=== PATIENT | female | born 1965 | race Caucasian/White ===

== ENCOUNTER 2022-01-13 13:41 | Emergency (ER) | payer MEDICAID, SELFPAY ==
[2022-01-13 13:50] VITALS: BP 116/70; PULSE 91; RESP 16; TEMP 36.5; O2SAT 98; BMI 28.7
[2022-01-13 15:49] LABS: Add Urine Microscopic? NO; Charge for UA Resulting for Rev
--- NOTE | 2022-01-13 15:50 | W.ED.NAVMDI ---
HPI - Nausea/Vomiting/Diarrhea General: Chief complaint: Nausea/Vomiting/Diarrhea Stated complaint: N/V/D Time Seen by Provider: 01/13/22 15:18 History of Present Illness: Patient states he had vomiting diarrhea this morning. Said she been around 7 stomach flu that had a week ago. Patient says she feels pretty good right now. Does feel nauseous no more vomiting. Associated nausea: Yes Associated symtoms: Reports nausea; Denies chest pain or headache(s) Review of Systems Const: Denies: fever(s), chills or body aches Eyes: Denies: eye discomfort ENMT: Denies: throat pain Card: Denies: chest pain Resp: Denies: dyspnea GI: Reports: nausea, vomiting and diarrhea; Denies: abdominal pain Skin/Breast: Denies: rash Neuro: Denies: headache(s) Psych: Denies: depression or suicidal ideation Physical Exam Const: COMMON NORMALS: no acute distress, patient oriented x3 and alert HENMT: COMMON NORMALS: normocephalic and external ears normal HEAD & SCALP: normocephalic EXTERNAL EAR: Yes external ears normal Eye: COMMON NORMALS: EOMs intact bilaterally Neck/C-Spine: COMMON NORMALS: no JVD Resp: COMMON NORMALS: normal respiratory effort and No use of accessory muscles Cardio: COMMON NORMALS: no JVD GI: INSPECTION: Yes normal to inspection Extremity: COMMON NORMALS: normal to inspection and full ROM Neuro: COMMON NORMALS: patient oriented x3 SENSORIUM/ORIENTATION: Yes alert Psych: COMMON NORMALS: mental status grossly normal Skin: COMMON NORMALS: no rashes or lesions noted GENERAL SKIN EXAM: no rashes or lesions noted Course Vital Signs: Vital signs: Vital Signs Temperature 97.7 F 01/13/22 13:50 Pulse Rate 91 01/13/22 13:50 Respiratory Rate 16 01/13/22 13:50 Blood Pressure 116/70 01/13/22 13:50 Pulse Oximetry 98 01/13/22 13:50 MDM - Nausea/Vomiting/Diarrhea Medical Decision Making Patient presents with gastroenteritis symptoms. Laboratory studies were negative. Patient discharged home on appropriate medication. Lab Data : 01/13/22 15:48 01/13/22 15:48 Laboratory Results WBC 7.6 10^3/uL (4.0-10.0) 01/13/22 15:48 RBC 4.69 10^6/uL (4.1-5.3) 01/13/22 15:48 Hgb 14.5 g/dL (11.5-15.3) 01/13/22 15:48 Hct 43.2 % (37.0-47.0) 01/13/22 15:48 MCV 92.1 fl (81-99) 01/13/22 15:48 MCH 30.9 pg (28.0-34.0) 01/13/22 15:48 MCHC 33.6 g/dL (30.0-36.0) 01/13/22 15:48 RDW 13.0 % (12.1-15.1) 01/13/22 15:48 Plt Count 158 10^3/cmm (130-400) 01/13/22 15:48 MPV 10.6 fL (7.4-10.4) H 01/13/22 15:48 Neut % (Auto) 91.9 % 01/13/22 15:48 Lymph % (Auto) 5.4 % 01/13/22 15:48 [place] % (Auto) 2.0 % 01/13/22 15:48 Eos % (Auto) 0.1 % 01/13/22 15:48 Baso % (Auto) 0.1 % 01/13/22 15:48 Neut # (Auto) 6.95 10^3/uL (1.8-7.7) 01/13/22 15:48 Lymph # (Auto) 0.4 10^3/uL (0.8-4.8) L 01/13/22 15:48 [place] # (Auto) 0.2 10^3/uL (0.2-0.9) 01/13/22 15:48 Eos # (Auto) 0.0 10^3/uL (0.0-0.8) 01/13/22 15:48 Baso # (Auto) 0.0 10^3/uL (0.0-0.1) 01/13/22 15:48 Nucleated RBC % (auto) 0 % 01/13/22 15:48 Nucleated RBCs # 0.0 /100WBC 01/13/22 15:48 Sodium 140 mmol/L (136-145) 01/13/22 15:48 Potassium 4.2 mmol/L (3.5-5.1) 01/13/22 15:48 Chloride 102 mmol/L (98-107) 01/13/22 15:48 Carbon Dioxide 25 mmol/L (22-29) 01/13/22 15:48 Anion Gap 17.2 (5-19) 01/13/22 15:48 BUN 15 mg/dL (6-20) 01/13/22 15:48 Creatinine 0.5 mg/dL (0.5-0.9) 01/13/22 15:48 GFR Calculation 128.6 mL/min (90-130) 01/13/22 15:48 Glucose 105 mg/dL (65-115) 01/13/22 15:48 Calculated Osmolality 291 mOsm/kg (285-295) 01/13/22 15:48 Calcium 9.9 mg/dL (8.5-10.5) 01/13/22 15:48 Total Bilirubin 0.6 mg/dL (0.15-1.2) 01/13/22 15:48 AST 23 U/L (0-32) 01/13/22 15:48 ALT 14 U/L (0-33) 01/13/22 15:48 Alkaline Phosphatase 100 IU/L (35-105) 01/13/22 15:48 Total Protein 8.5 g/dL (6.6-8.7) 01/13/22 15:48 Albumin 5.0 g/dL (3.5-5.2) 01/13/22 15:48 Globulin 3.5 g/dL (1.3-4.6) 01/13/22 15:48 Lipase 17 U/L (13-60) 01/13/22 15:48 Urine Color Yellow (Yellow) 01/13/22 15:28 Urine Appearance Clear (CLEAR) 01/13/22 15:28 Urine pH 6 (5-7) 01/13/22 15:28 Ur Specific [place] 1.020 (1.005-1.030) 01/13/22 15:28 Urine Protein Neg (Negative) 01/13/22 15:28 Urine Glucose (UA) Norm (Normal) 01/13/22 15:28 Urine Ketones Negative (Negative) 01/13/22 15:28 Urine Blood Neg (Negative) 01/13/22 15:28 Urine Nitrate Negative (Negative) 01/13/22 15:28 Urine Bilirubin Neg (Negative) 01/13/22 15:28 Urine Urobilinogen Norm mg/dL (Negative) 01/13/22 15:28 Ur Leukocyte Esterase Negative (Negative) 01/13/22 15:28 Discharge Plan Discharge Patient Disposition: Home Clinical Impression: Gastroenteritis Condition: Stable Prescriptions: New Zofran 4 mg tablet 4 mg PO Q8H 3 Days Qty: 9 0RF Discharge Orders: Discharge ED (Routine); Ordered 01/13/22 Ordered By: Franki Armenta Discharge Diet: Advance as tolerated Discharge Activity: Resume usual activity Patient Instructions: Gastroenteritis (ED) Activity Restrictions/Additional Instructions: Follow-up with medical provider as directed. Take medications as prescribed. Return to the ER or your medical provider if condition worsens. Please read and understand discharge instructions. If any questions ask please. Advance diet slowly. Coding Level of Care Code ED Sustainable Design Coordinator for Cristian Fwjudit Exam Comprehensive
[2022-01-13 15:54] LABS: Bilirubin Urine Neg (Negative); Blood Urine Neg (Negative); Glucose Urine UA Norm (Normal); Ketones Urine Negative (Negative); Leukocyte Esterase Urine Negative (Negative); Nitrate Urine Negative (Negative); Protein Urine Neg (Negative); Urine Appearance Clear (CLEAR); Urine Color Yellow (Yellow); Urobilinogen Urine Norm (Negative); pH Urine 6 (5-7)
[2022-01-13] MEDS: diphenoxylate/atropine Tablet 1 TAB PO (15:56)
[2022-01-13] MEDS: ondansetron 2 mg/ML SDV 2 mL 4 MG IVP (15:57)
--- NOTE | 2022-01-13 15:58 | PC.NURSE ---
2ml of Zofran administered IVP by VERONICA Leiva
[2022-01-13 16:03] LABS: Basophils % 0.1 %; Eosinophils % 0.1 %; Hematocrit 43.2 % (37.0-47.0); Hemoglobin 14.5 g/dL (11.5-15.3); Lymphocytes # 0.4 10^3/uL (0.8-4.8); Lymphocytes % 5.4 %; Mean Corpuscular HGB Conc 33.6 g/dL (30.0-36.0); Mean Corpuscular Hemoglobin 30.9 pg (28.0-34.0); Mean Corpuscular Volume 92.1 fl (81-99); Mean Platelet Volume 10.6 fL (7.4-10.4); Monocytes # 0.2 10^3/uL (0.2-0.9); Neutrophils # 6.95 10^3/uL (1.8-7.7); Neutrophils % 91.9 %; Nucleated Red Blood Cells % 0 %; Platelet Count 158 10^3/cmm (130-400); Red Blood Count 4.69 10^6/uL (4.1-5.3); White Blood Count 7.6 10^3/uL (4.0-10.0)
[2022-01-13 16:35] LABS: Alanine Aminotransferase 14 U/L (0-33); Alkaline Phosphatase 100 IU/L (35-105); Aspartate Amino Transferase 23 U/L (0-32); Blood Urea Nitrogen 15 mg/dL (6-20); Calcium 9.9 mg/dL (8.5-10.5); Carbon Dioxide 25 mmol/L (22-29); Chloride 102 mmol/L (98-107); Globulin 3.5 g/dL (1.3-4.6); Glomerular Filtration Rate 128.6 mL/min (90-130); Glucose 105 mg/dL (65-115); Lipase 17 U/L (13-60); Osmolality Calculated 291 mOsm/kg (285-295); Sodium 140 mmol/L (136-145); Total Bilirubin 0.6 mg/dL (0.15-1.2); Total Protein 8.5 g/dL (6.6-8.7)
[2022-01-13 16:51] LABS: Anion Gap 17.2 (5-19); Potassium 4.2 mmol/L (3.5-5.1)
== END 2022-01-13 17:03 | disposition home or self-care (01) ==
PROVIDERS: Emergency Provider Nurse Practitioner Family
DX: K52.9 Noninfective gastroenteritis and colitis, unspecified (principal)
CPT/HCPCS: 80053; 81003; 83690; 85025; 96374; 99283; J2405

== ENCOUNTER 2022-06-22 02:11 | Emergency (ER) | payer MEDICAID, SELFPAY ==
[2022-06-22 02:12] VITALS: BP 153/87; PULSE 66; RESP 18; TEMP 36.6; O2SAT 100; BMI 25.6
--- NOTE | 2022-06-22 02:13 | XRR_ITS ---
PROCEDURE INFORMATION: Exam: XR Chest Exam date and time: 06/22/2022 2:31 AM Age: 56 years old Clinical indication: Chest pressure; Prior surgery; Surgery type: Pacemaker. Double mastectomy. Gastric. Patient HX: C/O lt sided chest pain with SOB. History of pneumothorax. ; Additional info: Cp TECHNIQUE: Imaging protocol: Radiologic exam of the chest. Views: 1 view. COMPARISON: No relevant prior studies available. FINDINGS: Tubes, catheters and devices: There is left-sided pacemaker with intact leads overlying the right atrium and right ventricle. Radiopaque device surround the GE junction. Lungs: Unremarkable. No consolidation. Pleural spaces: Unremarkable. No pleural effusion. No pneumothorax. Heart/Mediastinum: Unremarkable. No cardiomegaly. Bones/joints: Unremarkable. Organs: There has been a cholecystectomy. XR/XR chest 1V portable [id number] IMPRESSION: No cause for acute pain is identified.
--- NOTE | 2022-06-22 02:15 | ECG_ITS ---
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 Measurements Intervals [place] Rate: 65 P: 194 VA: 164 QRS: 1 QRSD: 93 T: 45 QT: 371 QTc: 387 Interpretive Statements ELECTRONIC ATRIAL PACEMAKER LOW QRS VOLTAGE IN PRECORDIAL LEADS [QRS DEFLECTION < 1.0 mV IN CHEST LEADS] ABNORMAL RHYTHM ECG No previous ECG available for comparison Electronically Signed On 06-22-2022 16:28:37 CDT by Shaggy Birmingham M.D. [id number]
--- NOTE | 2022-06-22 02:27 | ED_ITS ---
HPI - Chest Pain General: Chief Complaint: Chest Pain Stated Complaint: Chest Pains Time Seen by Provider: 06/22/22 02:15 Source: patient Mode of arrival: ambulatory Limitations: no limitations History of Present Illness: 56-year-old female states that 30 minutes ago she started having sudden left-sided chest pain states pain is sharp in nature rates an 8 out of 10. States its worse with cough and movement and palpation. She denies any fever denies any vomiting denies any diaphoresis. Does have a history of a pacemaker currently in place. Associated symptoms: Deny abdominal pain, dyspnea, fever(s), nausea or vomiting Review of Systems Const: Denies: fever(s), chills, body aches or change in appetite Eyes: Denies: blurry vision or eye discomfort ENMT: Denies: throat pain or dental pain Card: Reports: chest pain Resp: Denies: dyspnea GI: Denies: abdominal pain, nausea, vomiting or diarrhea : Denies: dysuria Musc: Denies: neck pain or back pain Skin/Breast: Denies: rash Neuro: Denies: headache(s) Psych: Denies: depression Hany/Lymph: Denies: easy bruising All/Imm: Denies: urticaria PFSH ED PFSH: Medical History (Updated 06/22/22 @ 05:42 by Derrick Mobley MD) Pacemaker Social History Substance/Drug Use: never Physical Exam Const: COMMON NORMALS: no acute distress, patient oriented x3 and healthy appearing HENMT: COMMON NORMALS: normocephalic and atraumatic HEAD & SCALP: normocephalic and atraumatic Eye: COMMON NORMALS: Equal, round and reactive pupils present and EOMs intact bilaterally PUPIL: Yes Equal, round and reactive pupils present Neck/C-Spine: COMMON NORMALS: full ROM and supple Chest: COMMONS NORMALS: normal inspection of the chest OTHER: point tender over left chest Resp: COMMON NORMALS: normal respiratory effort, No retractions, No use of accessory muscles and clear to auscultation bilaterally AUSCULTATION: clear to auscultation bilaterally Cardio: COMMON NORMALS: regular rate, regular rhythm and No murmurs present (Cardio) RATE: regular rate RHYTHM: regular rhythm GI: COMMON NORMALS: Normal to inspection, nondistended, normoactive bowel sounds present, Soft to palpation, non-tender and no masses PALPATION: Yes Soft to palpation Extremity: COMMON NORMALS: normal to inspection and full ROM Neuro: COMMON NORMALS: patient oriented x3, moves all extremities and no focal motor deficits Psych: COMMON NORMALS: mental status grossly normal, Normal thought process present and cooperative THOUGHT PROCESS: Normal thought process present Skin: COMMON NORMALS: no rashes or lesions noted and no wounds GENERAL SKIN EXAM: no rashes or lesions noted Course 2 Vital Signs: Vital signs: Vital Signs Temperature 97.8 F 06/22/22 02:12 Pulse Rate 66 06/22/22 02:12 Respiratory Rate 18 06/22/22 02:12 Blood Pressure 153/87 06/22/22 02:12 Pulse Oximetry 100 06/22/22 02:12 Oxygen Delivery Me thod 06/22/22 02:12 MDM - Chest Pain Medical Decision Making Patient presents here with chest pains atypical in nature she is point tender on exam troponins here are negative she has no signs of pulmonary embolism she is stable for discharge she is to follow-up with PCP and return if worsening she understands agrees to plan. Lab Data : 06/22/22 02:56 06/22/22 02:56 Radiology Impressions Chest X-Ray 06/22/22 02:13 IMPRESSION: No cause for acute pain is identified. Laboratory Results WBC 5.7 10^3/uL (4.0-10.0) 06/22/22 02:56 RBC 3.76 10^6/uL (4.1-5.3) L 06/22/22 02:56 Hgb 11.6 g/dL (11.5-15.3) 06/22/22 02:56 Hct 35.1 % (37.0-47.0) L 06/22/22 02:56 MCV 93.4 fl (81-99) 06/22/22 02:56 MCH 30.9 pg (28.0-34.0) 06/22/22 02:56 MCHC 33.0 g/dL (30.0-36.0) 06/22/22 02:56 RDW 12.2 % (12.1-15.1) 06/22/22 02:56 Plt Count 160 10^3/cmm (130-400) 06/22/22 02:56 MPV 11.0 fL (7.4-10.4) H 06/22/22 02:56 Neut % (Auto) 49.4 % 06/22/22 02:56 Lymph % (Auto) 43.3 % 06/22/22 02:56 [place] % (Auto) 5.3 % 06/22/22 02:56 Eos % (Auto) 1.6 % 06/22/22 02:56 Baso % (Auto) 0.2 % 06/22/22 02:56 Neut # (Auto) 2.83 10^3/uL (1.8-7.7) 06/22/22 02:56 Lymph # (Auto) 2.5 10^3/uL (0.8-4.8) 06/22/22 02:56 [place] # (Auto) 0.3 10^3/uL (0.2-0.9) 06/22/22 02:56 Eos # (Auto) 0.1 10^3/uL (0.0-0.8) 06/22/22 02:56 Baso # (Auto) 0.0 10^3/uL (0.0-0.1) 06/22/22 02:56 Nucleated RBC % (auto) 0 % 06/22/22 02:56 Nucleated RBCs # 0.0 /100WBC 06/22/22 02:56 PT 14.00 SECONDS (12.1-14.9) 06/22/22 02:56 INR 1.04 (0.8-1.2) 06/22/22 02:56 Sodium 141 mmol/L (136-145) 06/22/22 02:56 Potassium 3.4 mmol/L (3.5-5.1) L 06/22/22 02:56 Chloride 104 mmol/L (98-107) 06/22/22 02:56 Carbon Dioxide 26 mmol/L (22-29) 06/22/22 02:56 Anion Gap 14.4 (5-19) 06/22/22 02:56 BUN 9 mg/dL (6-20) 06/22/22 02:56 Creatinine 0.7 mg/dL (0.5-0.9) 06/22/22 02:56 GFR Calculation 87.2 mL/min (90-130) L 06/22/22 02:56 Glucose 98 mg/dL (65-115) 06/22/22 02:56 Calculated Osmolality 291 mOsm/kg (285-295) 06/22/22 02:56 Calcium 9.1 mg/dL (8.5-10.5) 06/22/22 02:56 Total Bilirubin 0.3 mg/dL (0.15-1.2) 06/22/22 02:56 AST 10 U/L (0-32) 06/22/22 02:56 ALT 6 U/L (0-33) 06/22/22 02:56 Alkaline Phosphatase 79 U/L (35-105) 06/22/22 02:56 Troponin T Baseline 6 ng/L (0-10) 06/22/22 02:56 Troponin T 120 Minute 6.00 ng/L (0-10) 06/22/22 05:09 Total Protein 6.5 g/dL (6.6-8.7) L 06/22/22 02:56 Albumin 4.2 g/dL (3.5-5.2) 06/22/22 02:56 Globulin 2.3 g/dL (1.3-4.6) 06/22/22 02:56 Lipase 41 U/L (13-60) 06/22/22 02:56 Discharge Plan Discharge Patient Disposition: Home Clinical Impression: Chest pain Qualifiers: Chest pain type: unspecified Qualified Code(s): R07.9 - Chest pain, unspecified Discharge Orders: Discharge ED (Routine); Ordered 06/22/22 Ordered By: Derrick Mobley Discharge Diet: Advance as tolerated Discharge Activity: Resume usual activity Patient Instructions: Chest Pain (ED) Coding Level of Care Code ED Processing Associate for Chg Fwd Exam Comprehensive
[2022-06-22 03:11] LABS: Basophils % 0.2 %; Eosinophils # 0.1 10^3/uL (0.0-0.8); Eosinophils % 1.6 %; Hematocrit 35.1 % (37.0-47.0); Hemoglobin 11.6 g/dL (11.5-15.3); Lymphocytes # 2.5 10^3/uL (0.8-4.8); Lymphocytes % 43.3 %; Mean Corpuscular Hemoglobin 30.9 pg (28.0-34.0); Mean Corpuscular Volume 93.4 fl (81-99); Monocytes # 0.3 10^3/uL (0.2-0.9); Monocytes % 5.3 %; Neutrophils # 2.83 10^3/uL (1.8-7.7); Neutrophils % 49.4 %; Nucleated Red Blood Cells % 0 %; Platelet Count 160 10^3/cmm (130-400); Red Blood Count 3.76 10^6/uL (4.1-5.3); Red Cell Distribution Width 12.2 % (12.1-15.1); White Blood Count 5.7 10^3/uL (4.0-10.0)
[2022-06-22 03:24] LABS: INR 1.04 (0.8-1.2)
[2022-06-22 03:31] LABS: Alanine Aminotransferase 6 U/L (0-33); Albumin Level 4.2 g/dL (3.5-5.2); Alkaline Phosphatase 79 U/L (35-105); Anion Gap 14.4 (5-19); Aspartate Amino Transferase 10 U/L (0-32); Blood Urea Nitrogen 9 mg/dL (6-20); Calcium 9.1 mg/dL (8.5-10.5); Carbon Dioxide 26 mmol/L (22-29); Chloride 104 mmol/L (98-107); Creatinine Clr Calc Pharmacy 80.4407; Globulin 2.3 g/dL (1.3-4.6); Glomerular Filtration Rate 87.2 mL/min (90-130); Glucose 98 mg/dL (65-115); Lipase 41 U/L (13-60); Osmolality Calculated 291 mOsm/kg (285-295); Potassium 3.4 mmol/L (3.5-5.1); Sodium 141 mmol/L (136-145); Total Bilirubin 0.3 mg/dL (0.15-1.2); Total Protein 6.5 g/dL (6.6-8.7)
[2022-06-22 03:33] LABS: Troponin(5th) Baseline 6 ng/L (0-10)
--- NOTE | 2022-06-22 04:41 | ECG_ITS ---
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 Measurements Intervals [place] Rate: 62 P: 164 [place]: 224 QRS: -2 QRSD: 108 T: 32 QT: 425 QTc: 432 Interpretive Statements ELECTRONIC ATRIAL PACEMAKER LOW QRS VOLTAGE IN PRECORDIAL LEADS [QRS DEFLECTION < 1.0 mV IN CHEST LEADS] ABNORMAL RHYTHM ECG Compared to ECG 06/22/2022 02:15:57 No significant changes Electronically Signed On 06-22-2022 16:34:13 CDT by Shaggy Birmingham M.D. [id number]
[2022-06-22 06:37] LABS: Troponin 5 2HR Delta 0 ABS# (0-10)
[2022-06-22 06:46] VITALS: BP 136/84; PULSE 69; RESP 17; O2SAT 97
== END 2022-06-22 06:48 | disposition home or self-care (01) ==
PROVIDERS: Emergency Provider Emergency Medicine
DX: R07.9 Chest pain, unspecified (principal); Z95.0 Presence of cardiac pacemaker
CPT/HCPCS: 71045; 80053; 83690; 84484; 85025; 85610; 93005; 99285

== ENCOUNTER 2022-06-29 14:31 | Outpatient (CLI) | payer MEDICAID, SELFPAY ==
--- NOTE | 2022-06-29 14:44 | XR_ITS ---
WS: [id number] Exam: XR ribs LT mn 3V w CXR1V [id number] Date/Time of Exam: 06/29/2022 2:54 PM Reason For Exam: R07.81 - Pleurodynia No sign of acute left rib fracture or pneumothorax. No pleural or pulmonary reactive changes. The sahil gs are bilaterally clear. Normal cardiomediastinal silhouette. Permanent cardiac pacer superimposes t he left chest. Postoperative changes in the upper abdomen. XR/XR ribs LT mn 3V w CXR1V [id number] IMPRESSION: 1. No acute left rib fracture or pneumothorax. 2. No acute cardiopulmonary finding.
== END 2022-06-29 14:32 | disposition home or self-care (01) ==
LOC: RAD 14:34
PROVIDERS: PCP Nurse Practitioner Family; Visit Provider Nurse Practitioner Family
DX: R07.81 Pleurodynia (principal)
CPT/HCPCS: 71101

== ENCOUNTER → 2022-07-07 14:15 | Outpatient (BNVA) | payer MEDICAID, SELFPAY | PROVIDERS: PCP Nurse Practitioner Family; Visit Provider Nurse Practitioner Family | DX: I10 Essential (primary) hypertension (principal); E78.5 Hyperlipidemia, unspecified; E55.9 Vitamin D deficiency, unspecified; R73.9 Hyperglycemia, unspecified | CPT/HCPCS: 80061; 82306; 82607; 83036; 83735; 84443 ==

== ENCOUNTER 2022-07-09 12:59 | Emergency (ER) | payer MEDICAID, SELFPAY ==
[2022-07-09 13:06] VITALS: BP 126/84; PULSE 93; RESP 16; TEMP 36.6; O2SAT 95; BMI 25.9
--- NOTE | 2022-07-09 13:33 | XRR_ITS ---
PROCEDURE INFORMATION: Exam: XR Abdomen Exam date and time: 07/09/2022 1:42 PM Age: 56 years old Clinical indication: Constipated. Abdominal pain. TECHNIQUE: Imaging protocol: Radiologic exam of the abdomen. Views: Frontal supine view of the abdomen. 1 View. COMPARISON: CR XR ribs LT mn 3V w CXR1V [id number] 06/29/2022 2:44 PM FINDINGS: Tubes, catheters and devices: A radiopaque device is noted around the GE junction. Pacer leads are incompletely visualized. Surgical clips are noted in the epigastrium. Gastrointestinal tract: Mild gas and stool in the colon. There are a few dilated loops of small bowel in the left abdomen which could reflect mild ileus or obstruction. Intraperitoneal space: Radiodensities in the left upper quadrant appear unchanged. Bones/joints: No gross acute fracture. XR/XR KUB portable [id number] IMPRESSION: 1. There are a few dilated loops of small bowel in the left abdomen which could reflect mild ileus or obstruction. Consider CT to further assess if clinically warranted. 2. Mild gas and stool in the colon.
--- NOTE | 2022-07-09 13:48 | ED_ITS ---
HPI - Abdominal Pain General: Chief Complaint: Abdominal Pain Stated Complaint: no bm post op; side pain Time Seen by Provider: 07/09/22 13:33 Source: patient Mode of arrival: ambulatory History of Present Illness: 56-year-old female who presents emergency room with complaint of inability to have a bowel movement. He had an EGD and colonoscopy on June 30 and since then she has not been able to have a bowel movement. No severe abdominal pain she has noticed some dysuria. Is complaining of mild right flank pain as well no vomiting no fever sweats or chills no chest pain MD elicited complaint: flank pain Onset (ago): day(s) (9) Pain Consistency: intermittent Location: R flank Severity: mild Quality: cramping Radiation: none Migration to: no migration Exacerbating factors: nothing Associated Symptoms: Reports bloating, change in bowel habits, constipation and GI cramping; Denies anorexia, belching, change in stool character, chills, coffee ground emesis, diarrhea, dyspepsia, dysuria, excessive flatus, fever(s), heartburn, hematochezia, hematuria, hematemesis, fecal incontinence, loose stools, melena, nausea, poor appetite, syncope and vomiting Review of Systems Const: Denies: fever(s), chills, fatigue or malaise ENMT: Denies: throat pain, ear or mastoid pain, nasal discharge or nasal congestion Card: Denies: chest pain, palpitations, irregular heart rhythm, edema or syncope Resp: Denies: dyspnea, productive cough or non-productive cough GI: Reports: abdominal pain, constipation, bloating, GI cramping and change in bowel habits; Denies: nausea, vomiting, hematemesis, coffee ground emesis, heartburn, diarrhea, belching, excessive flatus, fecal incontinence, change in stool character, hematochezia or melena : Denies: flank pain, difficulty voiding, dysuria or hematuria Skin/Breast: Denies: rash or pruritus PFSH ED PFSH: Medical History Allergic rhinitis Anxiety and depression Bradycardia delivery delivered Chronic diarrhea History of breast cancer Hyperlipidemia Hypertension Nausea vomiting and diarrhea Pacemaker Vitamin D deficiency Surgical History Gastric bypass status for obesity H/O bilateral mastectomy History of appendectomy History of partial hysterectomy Family History Mother COPD with asthma Pacemaker Hypertension Hyperlipidemia Lung disease Colitis Anxiety and depression Brother Anxiety and depression Diabetes Psychiatric illness schizophrenia Father Liver cirrhosis Cancer Social History Smoking and tobacco status: never smoked Second hand smoke exposure: No Alcohol intake: never Household members: spouse and children Marital status: Current occupational status: disabled Current gender identity: Female Special christopher needs: No Agree to transfusion: Yes Physical Exam Const: COMMON NORMALS: no acute distress GENERAL APPEARANCE: cooperative and comfortable ORIENTATION/CONSCIOUSNESS: Yes awake, Yes oriented to person, Yes oriented to place and Yes oriented to time HENMT: COMMON NORMALS: normocephalic, atraumatic and hearing grossly normal bilaterally HEAD & SCALP: normocephalic and atraumatic Lymph: LYMPHATIC: no lymphadenopathy noted and no lymphedema noted Resp: COMMON NORMALS: normal respiratory effort, No retractions, No use of accessory muscles and clear to auscultation bilaterally AUSCULTATION: clear to auscultation bilaterally Cardio: COMMON NORMALS: regular rate, regular rhythm and No murmurs present (Cardio) RATE: regular rate RHYTHM: regular rhythm GI: COMMON NORMALS: Soft to palpation and No hepatosplenomegaly present AUSCULTATION: Yes normoactive bowel sounds PALPATION: Yes Soft to palpation, No Tenderness to palpation present (GI), No Guarding due to palpation present (GI) and Yes No hepatosplenomegaly present Extremity: COMMON NORMALS: normal to inspection, capillary refill normal, no clubbing, cyanosis or edema, no calf tenderness and no pedal edema Neuro: SENSORIUM/ORIENTATION: Yes oriented to person, Yes oriented to place and Yes oriented to time Skin: COMMON NORMALS: no rashes or lesions noted GENERAL SKIN EXAM: no rashes or lesions noted Course Vital Signs: Vital signs: Vital Signs Temperature 97.9 F 07/09/22 13:06 Pulse Rate 75 07/09/22 14:37 Respiratory Rate 16 07/09/22 14:37 Blood Pressure 126/77 07/09/22 14:37 Pulse Oximetry 95 07/09/22 14:37 Oxygen Delivery Me thod 07/09/22 13:06 MDM - Abdominal Pain Medical Decision Making Abdominal exam benign. radiologist stated concerned depending on her clinical presentation with some air in the small bowel patient has good bowel sounds very comfortable and completely benign exam. She does have a cystitis treat with Macrobid with stated lactulose for constipation follow-up with primary care Lab Data Labs/Radiology: Radiology Impressions KUB X-Ray 07/09/22 13:33 IMPRESSION: 1. There are a few dilated loops of small bowel in the left abdomen which could reflect mild ileus or obstruction. Consider CT to further assess if clinically warranted. 2. Mild gas and stool in the colon. ADDENDUM: 07/09/22 1424 Findings discussed with JAN FELIX at 07/09/2022 2:22 PM CDT. Laboratory Results Urine Color Yellow (Yellow) 07/09/22 13:57 Urine Appearance Hazy (CLEAR) A 07/09/22 13:57 Urine pH 6 (5-7) 07/09/22 13:57 Ur Specific [place] 1.010 (1.005-1.030) 07/09/22 13:57 Urine Protein Trace (Negative) 07/09/22 13:57 Urine Glucose (UA) Norm (Normal) 07/09/22 13:57 Urine Ketones Negative (Negative) 07/09/22 13:57 Urine Blood 2+ (Negative) H 07/09/22 13:57 Urine Nitrate Negative (Negative) 07/09/22 13:57 Urine Bilirubin Neg (Negative) 07/09/22 13:57 Urine Urobilinogen 1 mg/dL (Negative) H 07/09/22 13:57 Ur Leukocyte Esterase 2+ (Negative) H 07/09/22 13:57 Urine RBC 15-25 /hpf (0-2) H 07/09/22 13:57 Urine WBC Too numerous to cnt /hpf (0-5) H 07/09/22 13:57 Ur Squamous Epith Cells 0-4 /hpf (0-5) H 07/09/22 13:57 Amorphous Sediment Not Reportable 07/09/22 13:57 Urine Bacteria 2+ /hpf (NONE) H 07/09/22 13:57 Discharge Plan Discharge Patient Disposition: Home Clinical Impression: Constipation, Cystitis Condition: Stable Prescriptions: New Constulose 10 gram/15 mL solution 30 g PO Q4H 1 Days Qty: 270 0RF Rx Instructions: until desired laxative effect Macrobid 100 mg capsule 100 mg PO BID 7 Days Qty: 14 0RF Rx Instructions: must administer with a meal/food No Action loperamide 2 mg capsule 2 mg PO TID meclizine 25 mg tablet 25 mg PO DAILY PRN aspirin [Adult Low Dose Aspirin] 81 mg tablet,delayed release (DR/EC) 81 mg PO DAILY ergocalciferol (vitamin D2) 1,250 mcg (50,000 unit) capsule 1,250 mcg PO .weekly cholecalciferol (vitamin D3) 50 mcg (2,000 unit) capsule 50 mcg PO DAILY buspirone 15 mg tablet 15 mg PO BID Qty: 180 0RF fluoxetine 40 mg capsule 40 mg PO DAILY Qty: 90 0RF levocetirizine 5 mg tablet 5 mg PO DAILY Qty: 90 0RF metoprolol succinate 25 mg tablet extended release 24 hr 25 mg PO BID Qty: 180 0RF quetiapine [Seroquel] 25 mg tablet 25 mg PO DAILY Qty: 90 0RF rosuvastatin [Crestor] 40 mg tablet 40 mg PO DAILY Qty: 90 0RF Discharge Orders: Discharge ED (Routine); Ordered 07/09/22 Ordered By: Jan Felix Referrals: Ana M Putnam FNP [Primary Care Provider] - Discharge Diet: Usual diet Discharge Activity: Increase activity as tolerated Patient Instructions: Opioid Safety Activity Restrictions/Additional Instructions: Follow-up with primary care doctor if not improving Coding Level of Care Code ED Clinical Dietitian for Cristian Stovall
[2022-07-09 14:18] LABS: Urine Appearance Hazy (CLEAR); Urine Color Yellow (Yellow); pH Urine 6 (5-7)
[2022-07-09 14:19] LABS: Add Urine Microscopic? YES; Bilirubin Urine Neg (Negative); Blood Urine 2+ (Negative); Glucose Urine UA Norm (Normal); Ketones Urine Negative (Negative); Leukocyte Esterase Urine 2+ (Negative); Nitrate Urine Negative (Negative); Protein Urine Trace (Negative); Urobilinogen Urine 1 mg/dL (Negative)
[2022-07-09 14:20] LABS: RBC Urine 15-25 /hpf (0-2); Squamous Epithelial Cell Urine 0-4 /hpf (0-5); WBC Urine TOO NUMEROUS TO CNT /hpf (0-5)
[2022-07-09 14:21] LABS: Add Urine Culture? Yes; Bacteria Urine 2+ /hpf
[2022-07-09 14:37] VITALS: BP 126/77; PULSE 75; RESP 16; O2SAT 95
== END 2022-07-09 14:39 | disposition home or self-care (01) ==
PROVIDERS: Emergency Provider Family Medicine; PCP Nurse Practitioner Family
DX: K59.00 Constipation, unspecified (principal); N30.90 Cystitis, unspecified without hematuria; Z79.82 Long term (current) use of aspirin; E78.5 Hyperlipidemia, unspecified; I10 Essential (primary) hypertension; Z85.3 Personal history of malignant neoplasm of breast; Z95.0 Presence of cardiac pacemaker
CPT/HCPCS: 74018; 81001; 87077; 87086; 87186; 99284

== ENCOUNTER 2022-08-09 08:30 | Outpatient (CLI) | payer MEDICAID, SELFPAY ==
--- NOTE | 2022-08-09 09:00 | CT_ITS ---
WS: [id number] CT CHEST WITH INTRAVENOUS CONTRAST HISTORY: R07.81 - Pleurodynia, palpable area along the LEFT inferior chest wall. TECHNIQUE: Contiguous 5 mm axial imaging performed on the thorax. Coronal and sagittal reformats are submitted. All CT scans at [facility] use at least one of these dose optimization techniques: automated exposure control; mA and/or kV adjustment per patient size (includes targeted exams where dose is matched to clinical indication); or iterative reconstruction. CONTRAST: Omnipaque 350; 95 mL IV. DLP: 498.48 mGy.cm COMPARISON: None available. Lungs and central airway: Normal. Pleura: Normal. No pleural effusion. Heart and pericardium: Mildly enlarged heart. LEFT subclavian defibrillator. Mediastinum and meron: No mediastinum or hilar adenopathy. Vessels: Normal size aortic and pulmonary artery. No coronary artery calcifications. Chest wall and lower neck: No soft tissue abnormalities. Marker is placed along the anterior LEFT tiny st wall at the site of the palpable abnormality. There is no underlying mass at this location. Upper abdomen: Postsurgical changes at the GE junction. Probably from prior bypass. Prior cholecystec molina. Osseous structures: No destructive process. CT/CT chest w con* [id number] IMPRESSION: 1. No pleural effusion or pulmonary mass. 2. No soft tissue abnormality along the anterior LEFT chest wall near the palp able abnormality. 3. LEFT subclavian pacer. 4. Prior cholecystectomy.
[2022-08-09] MEDS: iohexol 350 mg/mL 100 mL Btl IV (09:26)
== END 2022-08-09 08:31 | disposition home or self-care (01) ==
LOC: RAD 08:31
PROVIDERS: PCP Nurse Practitioner Family; Visit Provider Nurse Practitioner Family
DX: R07.81 Pleurodynia (principal); R06.02 Shortness of breath
CPT/HCPCS: 71260

== ENCOUNTER → 2022-09-27 09:51 | Outpatient (BNVA) | payer MEDICAID, SELFPAY | PROVIDERS: PCP Nurse Practitioner Family; Visit Provider Nurse Practitioner Family | DX: E78.5 Hyperlipidemia, unspecified (principal); E55.9 Vitamin D deficiency, unspecified; I10 Essential (primary) hypertension; F41.9 Anxiety disorder, unspecified; F32.A Depression, unspecified; J30.9 Allergic rhinitis, unspecified; Z23 Encounter for immunization | CPT/HCPCS: 80053; 80061; 82306; 82607; 83735; 84443; 85025 ==

== ENCOUNTER → 2022-10-26 14:00 | Outpatient (BNVA) | payer MEDICAID, SELFPAY | PROVIDERS: PCP Nurse Practitioner Family; Visit Provider Nurse Practitioner Family | DX: R07.81 Pleurodynia (principal) | CPT/HCPCS: 81000 ==

== ENCOUNTER 2022-11-17 15:30 | Emergency (ER) | payer MEDICAID, SELFPAY ==
[2022-11-17 15:38] VITALS: PULSE 80; RESP 16; TEMP 36.7; O2SAT 99
--- NOTE | 2022-11-17 16:26 | CTR_ITS ---
PROCEDURE INFORMATION: Exam: CT Head Without Contrast Exam date and time: 11/17/2022 5:56 PM Age: 57 years old Clinical indication: Injury or trauma; Fall; Blunt trauma (contusions or hematomas); Without loss of consciousness; Patient HX: Fell backwards today, hit back of head on furniture. No laceration noted; Additional info: Fall with nausea and dizziness- on asa TECHNIQUE: Imaging protocol: Computed tomography of the head without contrast. Radiation optimization: All CT scans at this facility use at least one of these dose optimization techniques: automated exposure control; mA and/or kV adjustment per patient size (includes targeted exams where dose is matched to clinical indication); or iterative reconstruction. COMPARISON: No relevant prior studies available. RADIATION DOSE METRICS: Total DLP (mGy-cm): 1049.98 FINDINGS: Brain: Normal. No hemorrhage. Unremarkable white matter. No mass effect. Cerebral ventricles: No ventriculomegaly. Paranasal sinuses: There is a small mucous retention cyst in the right maxillary antrum. Mastoid air cells: Visualized mastoid air cells are well aerated. Bones/joints: Unremarkable. No acute fracture. Soft tissues: Unremarkable. CT/CT head wo con* [id number] IMPRESSION: No acute intracranial finding.
--- NOTE | 2022-11-17 16:27 | ED_ITS ---
Documented by User: CHINA Gonzalez 11/17/22 16:33 HPI - Fall General: Chief Complaint: Fall Stated Complaint: FALL Time Seen by Provider: 11/17/22 15:50 History of Present Illness: Patient reports that prior to arrival she was trying to help her up off the couch and she was pulling on him and he let go causing her to fall backwards tripping over a stool and hitting her back of her head on the entertainment center. She states that she does not believe she lost consciousness but she has been extremely dizzy and nauseated since that happened. She reports that when she stands up she is more dizzy. She reports that her vision started out as double vision but is now very blurry. She reports that she is on aspirin daily which thins her blood. Associated symptoms-after fall: Reports headache(s); Denies abdominal pain or chest pain Review of Systems Const: Denies: fever(s) or chills Eyes: Reports: change in vision and blurry vision Card: Denies: chest pain, palpitations or irregular heart rhythm Resp: Denies: dyspnea, productive cough or non-productive cough GI: Reports: nausea; Denies: abdominal pain or vomiting : Denies: flank pain, difficulty voiding or dysuria Neuro: Reports: headache(s) and dizziness; Denies: numbness in extremities or weakness in extremities [facility] ED PFSH: Medical History Allergic rhinitis Anxiety and depression Bradycardia delivery delivered Chronic diarrhea History of breast cancer Hyperlipidemia Hypertension Nausea vomiting and diarrhea Pacemaker Psychiatric care Vitamin D deficiency Surgical History Gastric bypass status for obesity H/O bilateral mastectomy History of appendectomy History of partial hysterectomy Family History Mother COPD with asthma Pacemaker Hypertension Hyperlipidemia Lung disease Colitis Anxiety and depression Brother Anxiety and depression Diabetes Psychiatric illness schizophrenia Father Liver cirrhosis Cancer Social History Smoking and tobacco status: never smoked Second hand smoke exposure: No Alcohol intake: never Household members: spouse and children Marital status: Current occupational status: disabled Current gender identity: Female Special christopher needs: No Agree to transfusion: Yes Physical Exam Const: COMMON NORMALS: no acute distress, patient oriented x3 and alert HENMT: HEAD & SCALP: other (Tenderness to palpation parietal region-left side) OTHER: Patient has generalized tenderness left parietal scalp. No obvious hematoma, step-off, bony deformity appreciated. Eye: COMMON NORMALS: Equal, round and reactive pupils present, EOMs intact bilaterally and conjunctivae normal CONJUNCTIVA: Yes conjunctivae normal PUPIL: Yes Equal, round and reactive pupils present Neck/C-Spine: COMMON NORMALS: full ROM, no lymphadenopathy, supple and no meningeal signs Resp: COMMON NORMALS: normal respiratory effort, No use of accessory muscles and clear to auscultation bilaterally AUSCULTATION: clear to auscultation bilaterally Cardio: COMMON NORMALS: regular rate, regular rhythm, S1 normal heart sound present and S2 normal heart sound present RATE: regular rate RHYTHM: regular rhythm HEART SOUNDS: S1 normal heart sound present and S2 normal heart sound present Neuro: COMMON NORMALS: patient oriented x3, CN's II-XII intact bilaterally, moves all extremities, no focal motor deficits and no sensory deficits noted SENSORIUM/ORIENTATION: Yes alert MENINGEAL SIGNS: Yes no meningeal signs Course Vital Signs: Vital signs: Vital Signs Temperature 98.0 F 11/17/22 15:38 Pulse Rate 80 11/17/22 15:38 Respiratory Rate 16 11/17/22 15:38 Blood Pressure 157/90 11/17/22 16:38 Pulse Oximetry 99 11/17/22 15:38 Oxygen Delivery Me thod 11/17/22 15:38 MDM - Fall Medical Decision Making Consider head contusion, concussion, intracranial hemorrhage Given patient's continued visual disturbance, dizziness and chronic aspirin usage I discussed the option of CT head with the patient and she is agreeable to a noncontrast CT head. Lab Data Radiology Impressions Head CT 11/17/22 16:26 IMPRESSION: No acute intracranial finding. Discharge Plan Discharge Patient Disposition: Home Clinical Impression: Head injury, closed Qualifiers: Encounter type: initial encounter Qualified Code(s): S09.90XA - Unspecified injury of head, initial encounter Condition: Stable Prescriptions: No Action metoprolol succinate 25 mg tablet extended release 24 hr 25 mg PO BID Qty: 180 0RF quetiapine [Seroquel] 25 mg tablet 25 mg PO DAILY Qty: 90 0RF escitalopram oxalate [Lexapro] 10 mg tablet 10 mg PO DAILY Qty: 90 0RF levocetirizine 5 mg tablet 5 mg PO DAILY Qty: 90 0RF meloxicam 15 mg tablet 15 mg PO DAILY Qty: 30 0RF atorvastatin 80 mg tablet 80 mg PO DAILY Qty: 90 1RF ergocalciferol (vitamin D2) 1,250 mcg (50,000 unit) capsule 1,250 mcg PO .weekly Qty: 12 1RF cyanocobalamin (vitamin B-12) 1,000 mcg/mL solution 1,000 mcg IM .weekly Qty: 4 0RF (DME) BD Luer-Kennedy Syringe 3 mL 25 gauge x 1 syringe See Rx Instructions .Route Qty: 4 0RF Rx Instructions: As directed loperamide 2 mg capsule 2 mg PO TID aspirin [Adult Low Dose Aspirin] 81 mg tablet,delayed release (DR/EC) 81 mg PO DAILY Discharge Orders: Discharge ED (Routine); Ordered 11/17/22 Ordered By: Kristian Modi Referrals: Ana M Putnam FNP [Primary Care Provider] - Discharge Diet: Usual diet Discharge Activity: Increase activity as tolerated Patient Instructions: Head Injury (ED) Activity Restrictions/Additional Instructions: Home and rest. Use acetaminophen or ibuprofen for pain. Activity as tolerated. Drink plenty of water and fluids. Use ice or heat for further pain relief. Follow-up with primary care as needed. Return to ED for worsening symptoms such as persistent vomiting, uncontrolled headache, or new concerns. Sign Out Sign Out Data: Patient Sign Out occurred on 11/17/22 at 17:10. Patient's care was discussed, and care was transferred from to Kristian Modi. Post-Handoff Eval: Patient resting well, awaiting head CT for rule out of brain bleed. Coding Level of Care Code ED Chief Sustainability Officer for Chg Fwd Exam Detailed Documented by User: LILLY Thao 11/17/22 18:23 HPI - Fall General: Chief Complaint: Fall Stated Complaint: FALL Time Seen by Provider: 11/17/22 15:50 PFSH ED PFSH: Medical History Allergic rhinitis Anxiety and depression Bradycardia delivery delivered Chronic diarrhea History of breast cancer Hyperlipidemia Hypertension Nausea vomiting and diarrhea Pacemaker Psychiatric care Vitamin D deficiency Surgical History Gastric bypass status for obesity H/O bilateral mastectomy History of appendectomy History of partial hysterectomy Family History Mother COPD with asthma Pacemaker Hypertension Hyperlipidemia Lung disease Colitis Anxiety and depression Brother Anxiety and depression Diabetes Psychiatric illness schizophrenia Father Liver cirrhosis Cancer Social History Smoking and tobacco status: never smoked Second hand smoke exposure: No Alcohol intake: never Household members: spouse and children Marital status: Current occupational status: disabled Current gender identity: Female Special christopher needs: No Agree to transfusion: Yes Course Vital Signs: Vital signs: Vital Signs Temperature 98.0 F 11/17/22 15:38 Pulse Rate 80 11/17/22 15:38 Respiratory Rate 16 11/17/22 15:38 Blood Pressure 157/90 11/17/22 16:38 Pulse Oximetry 99 11/17/22 15:38 Oxygen Delivery Me thod 11/17/22 15:38 MDM - Fall Medical Decision Making Consider head contusion, concussion, intracranial hemorrhage Given patient's continued visual disturbance, dizziness and chronic aspirin usage I discussed the option of CT head with the patient and she is agreeable to a noncontrast CT head. CT of the head noted no intracranial bleeding or fractures. Patient reported feeling better. Recommended acetaminophen and ibuprofen for pain and discomfort. Patient reported understanding of care plan and need for follow-up or return to the ER. Lab Data Radiology Impressions Head CT 11/17/22 16:26 IMPRESSION: No acute intracranial finding. Discharge Plan Discharge Patient Disposition: Home Clinical Impression: Head injury, closed Qualifiers: Encounter type: initial encounter Qualified Code(s): S09.90XA - Unspecified injury of head, initial encounter Condition: Stable Prescriptions: No Action metoprolol succinate 25 mg tablet extended release 24 hr 25 mg PO BID Qty: 180 0RF quetiapine [Seroquel] 25 mg tablet 25 mg PO DAILY Qty: 90 0RF escitalopram oxalate [Lexapro] 10 mg tablet 10 mg PO DAILY Qty: 90 0RF levocetirizine 5 mg tablet 5 mg PO DAILY Qty: 90 0RF meloxicam 15 mg tablet 15 mg PO DAILY Qty: 30 0RF atorvastatin 80 mg tablet 80 mg PO DAILY Qty: 90 1RF ergocalciferol (vitamin D2) 1,250 mcg (50,000 unit) capsule 1,250 mcg PO .weekly Qty: 12 1RF cyanocobalamin (vitamin B-12) 1,000 mcg/mL solution 1,000 mcg IM .weekly Qty: 4 0RF (DME) BD Luer-Kennedy Syringe 3 mL 25 gauge x 1 syringe See Rx Instructions .Route Qty: 4 0RF Rx Instructions: As directed loperamide 2 mg capsule 2 mg PO TID aspirin [Adult Low Dose Aspirin] 81 mg tablet,delayed release (DR/EC) 81 mg PO DAILY Discharge Orders: Discharge ED (Routine); Ordered 11/17/22 Ordered By: Kristian Modi Referrals: Ana M Putnam FNP [Primary Care Provider] - Discharge Diet: Usual diet Discharge Activity: Increase activity as tolerated Patient Instructions: Head Injury (ED) Activity Restrictions/Additional Instructions: Home and rest. Use acetaminophen or ibuprofen for pain. Activity as tolerated. Drink plenty of water and fluids. Use ice or heat for further pain relief. Follow-up with primary care as needed. Return to ED for worsening symptoms such as persistent vomiting, uncontrolled headache, or new concerns. Sign Out Sign Out Data: Patient Sign Out occurred on 11/17/22 at 17:10. Patient's care was discussed, and care was transferred from to Kristian Modi. Post-Handoff Eval: Patient resting well, awaiting head CT for rule out of brain bleed. Coding Level of Care Code ED Chief Sustainability Officer for Cristian Fwd Exam Detailed
[2022-11-17 16:38] VITALS: BP 157/90
[2022-11-17 18:36] VITALS: BP 178/85; PULSE 76; RESP 16
== END 2022-11-17 18:36 | disposition home or self-care (01) ==
PROVIDERS: Emergency Provider Nurse Practitioner Family; PCP Nurse Practitioner Family
DX: S09.8XXA Other specified injuries of head, initial encounter (principal); Z79.82 Long term (current) use of aspirin; Z85.3 Personal history of malignant neoplasm of breast; E78.5 Hyperlipidemia, unspecified; I10 Essential (primary) hypertension; Z95.0 Presence of cardiac pacemaker; W18.09XA Striking against other object with subsequent fall, initial encounter
CPT/HCPCS: 70450; 99284

== ENCOUNTER → 2023-01-12 10:41 | Outpatient (BNVA) | payer MEDICAID, SELFPAY | PROVIDERS: PCP Nurse Practitioner Family; Visit Provider Nurse Practitioner Family | DX: I10 Essential (primary) hypertension (principal); E11.9 Type 2 diabetes mellitus without complications; E55.9 Vitamin D deficiency, unspecified | CPT/HCPCS: 80053; 80061; 82306; 82607; 83036; 84443; 85025 ==

== ENCOUNTER 2023-02-02 19:01 | Observation (INO) | payer MEDICAID, SELFPAY ==
--- NOTE | 2023-02-02 19:03 | W.ED.WEAKNES ---
HPI - Weakness General: Stated complaint: Chest Pain Time Seen by Provider: 02/02/23 19:02 [facility] ED PFSH: Medical History Allergic rhinitis Anxiety and depression B12 deficiency Bradycardia delivery delivered Chronic diarrhea History of breast cancer Hyperlipidemia Hypertension Nausea vomiting and diarrhea Pacemaker Psychiatric care Type 2 diabetes mellitus Vitamin D deficiency Surgical History Gastric bypass status for obesity H/O bilateral mastectomy History of appendectomy History of partial hysterectomy Family History Mother COPD with asthma Pacemaker Hypertension Hyperlipidemia Lung disease Colitis Anxiety and depression Brother Anxiety and depression Diabetes Psychiatric illness schizophrenia Father Liver cirrhosis Cancer Social History Smoking and tobacco status: never smoked Second hand smoke exposure: No Alcohol intake: never Household members: spouse and children Marital status: Current occupational status: disabled Current gender identity: Female Special christopher needs: No Agree to transfusion: Yes Discharge Plan Discharge Condition: Stable Prescriptions: No Action metoprolol succinate 25 mg tablet extended release 24 hr 25 mg PO BID Qty: 180 0RF levocetirizine 5 mg tablet 5 mg PO DAILY Qty: 90 0RF ergocalciferol (vitamin D2) 1,250 mcg (50,000 unit) capsule 1,250 mcg PO .weekly Qty: 12 1RF mirtazapine 15 mg tablet 15 mg PO .HS Qty: 30 1RF venlafaxine [Effexor XR] 75 mg capsule,extended release 24hr 75 mg PO DAILY 30 Days Qty: 30 0RF venlafaxine [Effexor XR] 150 mg capsule,extended release 24hr 150 mg PO DAILY Qty: 30 0RF Rx Instructions: Start after taking 75 mg for 1 month. loperamide 2 mg capsule 2 mg PO TID aspirin [Adult Low Dose Aspirin] 81 mg tablet,delayed release (DR/EC) 81 mg PO DAILY meloxicam 15 mg tablet See Rx Instructions .ROUTE .COMPLEX Qty: 30 2RF Dose Instruction: Take 1 tablet by mouth once daily Rx Instructions: Take 1 tablet by mouth once daily (DME) BD Luer-Kennedy Syringe 3 mL 25 gauge x 1 syringe See Rx Instructions .ROUTE .COMPLEX Qty: 4 2RF Dose Instruction: USE DIRECTED Rx Instructions: USE DIRECTED cyanocobalamin (vitamin B-12) 1,000 mcg/mL solution See Rx Instructions .ROUTE .COMPLEX Qty: 1 2RF Dose Instruction: INJECT 1 ML (CC) INTRAMUSCULARLY ONCE A WEEK Rx Instructions: INJECT 1 ML (CC) INTRAMUSCULARLY ONCE A month Referrals: Ana M Putnam FNP [Primary Care Provider] - Coding Level of Care Code ED Commercial Front Load Operator for Deondreg Sia
--- NOTE | 2023-02-02 19:05 | XRR_ITS ---
PROCEDURE INFORMATION: Exam: XR Chest Exam date and time: 02/02/2023 7:22 PM Age: 57 years old Clinical indication: Pain; Chest pressure; Prior surgery; Additional info: Cp TECHNIQUE: Imaging protocol: Radiologic exam of the chest. Views: 1 view. COMPARISON: CT chest w con* [id number] 08/09/2022 9:14 AM FINDINGS: Tubes, catheters and devices: Two lead pacer device noted in the left chest wall. Lungs: Unremarkable. No consolidation. Pleural spaces: Unremarkable. No pleural effusion. No pneumothorax. Heart/Mediastinum: Unremarkable. No cardiomegaly. Bones/joints: Unremarkable. XR/XR chest 1V portable [id number] IMPRESSION: No acute findings.
--- NOTE | 2023-02-02 19:25 | PC.NURSE ---
ATTEMPTED TO TRIAGE PT, PT WITH LAB AND RADIOLOGY.
[2023-02-02 19:35] VITALS: BP 146/89; PULSE 78; RESP 18; TEMP 36.8; O2SAT 99; BMI 26.9
--- NOTE | 2023-02-02 19:36 | ED_ITS ---
HPI - Chest Pain General: Chief Complaint: Chest Pain Stated Complaint: Chest Pain Time Seen by Provider: 02/02/23 19:02 History of Present Illness: Ms. Hooker is a 57-year-old lady with history of hypertension, hyperlipidemia, pacemaker, diabetes presenting to the emergency department for chest pain. She reports intermittent symptoms for the past 2 weeks. Onset was subacute without known specific provoking event. Since onset symptoms have worsened and have become more exertional associated with presyncopal type feeling, generalized malaise, and shortness of breath. Denies frequent similar episodes in the past. No specific infectious symptoms. No other specific bentley es in health, exacerbating, or alleviating factors identified. Onset (ago): week(s) Timing of current episode: increasing Onset: during exertion Pain location: substernal Severity: moderate Quality: heaviness Relieving factors: nothing Exacerbating factors: exertion Associated symptoms: Reports dyspnea and other Review of Systems General: Reports: 10 or more systems reviewed and unremarkable except in HPI and below Resp: Reports: dyspnea PFSH ED PFSH: Medical History Allergic rhinitis Anxiety and depression B12 deficiency Bradycardia delivery delivered Chronic diarrhea History of breast cancer Hyperlipidemia Hypertension Nausea vomiting and diarrhea Pacemaker Psychiatric care Type 2 diabetes mellitus Vitamin D deficiency Surgical History Gastric bypass status for obesity H/O bilateral mastectomy History of appendectomy History of partial hysterectomy Family History Mother COPD with asthma Pacemaker Hypertension Hyperlipidemia Lung disease Colitis Anxiety and depression Brother Anxiety and depression Diabetes Psychiatric illness schizophrenia Father Liver cirrhosis Cancer Social History Smoking and tobacco status: never smoked Second hand smoke exposure: No Alcohol intake: never Household members: spouse and children Marital status: Current occupational status: disabled Current gender identity: Female Special christopher needs: No Agree to transfusion: Yes Physical Exam Const: COMMON NORMALS: alert GENERAL APPEARANCE: cooperative and well developed HENMT: COMMON NORMALS: normocephalic and atraumatic HEAD & SCALP: normocephalic and atraumatic Eye: COMMON NORMALS: conjunctivae normal CONJUNCTIVA: Yes conjunctivae normal SCLERA: sclerae normal Neck/C-Spine: COMMON NORMALS: supple GENERAL: Yes trachea midline Resp: COMMON NORMALS: clear to auscultation bilaterally EFFORT & INSPECTION: Yes able to speak in complete sentences AUSCULTATION: clear to auscultation bilaterally Cardio: COMMON NORMALS: regular rate and regular rhythm RATE: regular rate RHYTHM: regular rhythm GI: COMMON NORMALS: Soft to palpation PALPATION: Yes Soft to palpation and No Tenderness to palpation present (GI) Extremity: GENERAL: Yes normal exam except as noted and No edema Neuro: COMMON NORMALS: moves all extremities SENSORIUM/ORIENTATION: Yes a lert and No Orientation impaired Psych: COMMON NORMALS: mental status grossly normal and Normal thought process present THOUGHT PROCESS: Normal thought process present Course 2 Vital Signs: Vital signs: Vital Signs Temperature 97.9 F 02/03/23 11:51 Pulse Rate 81 02/03/23 11:51 Respiratory Rate 16 02/03/23 11:51 Blood Pressure 119/78 02/03/23 11:51 Pulse Oximetry 98 02/03/23 11:51 Oxygen Delivery Me thod Room Air 02/03/23 11:51 MDM - Chest Pain Medical Decision Making 57-year-old lady presenting to the emergency department for worsening progress sarah exertional chest pain. Exam as above. EKG demonstrates atrial paced rhythm, there were nonspecific T wave abnormalities, no STEMI. Labs notable for no leukocytosis, normal hemoglobin, metabolic panel without significant arrangement. Initial and delta troponin are negative. Chest x-ray with no lobar consolidation or pneumothorax. During ED course patient treated with aspirin and analgesia. Most etiology of patient symptoms is unspecified chest pain. She is not low risk by heart score. The results of ED evaluation were discussed with the patient including plan for admission due to requirement for level of care not available if discharged to prevent significant worsening/deterioration. Patient agreeable with plan. Discussed with hospitalist service who was agreeable to admit patient. Medical Records I reviewed the patient's medical records. Lab Data I reviewed the patient's lab results. 02/02/23 19:58 02/03/23 00:46 Radiology Impressions Chest X-Ray 02/02/23 19:05 IMPRESSION: No acute findings. Chest CTA 02/03/23 11:28 IMPRESSION: No sign of acute pulmonary embolism. Laboratory Results WBC 6.8 10^3/uL (4.0-10.0) 02/02/23 19:58 Corrected WBC Cancelled 02/02/23 19:28 RBC 4.04 10^6/uL (4.1-5.3) L 02/02/23 19:58 Hgb 12.3 g/dL (11.5-15.3) 02/02/23 19:58 Hct 37.5 % (37.0-47.0) 02/02/23 19:58 MCV 92.8 fl (81-99) 02/02/23 19:58 MCH 30.4 pg (28.0-34.0) 02/02/23 19:58 MCHC 32.8 g/dL (30.0-36.0) 02/02/23 19:58 RDW 12.1 % (12.1-15.1) 02/02/23 19:58 Plt Count 175 10^3/cmm (130-400) 02/02/23 19:58 MPV 10.4 fL (7.4-10.4) 02/02/23 19:58 Gran % Cancelled 02/02/23 19:28 Neut % (Auto) 60.9 % 02/02/23 19:58 Lymph % (Auto) 32.5 % 02/02/23 19:58 Warrick % (Auto) 4.4 % 02/02/23 19:58 Eos % (Auto) 1.8 % 02/02/23 19:58 Baso % (Auto) 0.3 % 02/02/23 19:58 Neut # (Auto) 4.13 10^3/uL (1.8-7.7) 02/02/23 19:58 Lymph # (Auto) 2.2 10^3/uL (0.8-4.8) 02/02/23 19:58 Warrick # (Auto) 0.3 10^3/uL (0.2-0.9) 02/02/23 19:58 Eos # (Auto) 0.1 10^3/uL (0.0-0.8) 02/02/23 19:58 Baso # (Auto) 0.0 10^3/uL (0.0-0.1) 02/02/23 19:58 Absolute Gran (auto) Cancelled 02/02/23 19:28 Nucleated RBC % (auto) 0 % 02/02/23 19:58 Nucleated RBCs # 0.0 /100WBC 02/02/23 19:58 PT 13.20 SECONDS (12.1-14.9) 02/02/23 19:28 INR 0.97 (0.8-1.2) 02/02/23 19:28 D-Dimer 0.51 ug/mIFEU (0-0.59) 02/02/23 19:28 Sodium 141 mmol/L (136-145) 02/02/23 19:28 Potassium 3.9 mmol/L (3.5-5.1) 02/02/23 19:28 Chloride 105 mmol/L (98-107) 02/02/23 19:28 Carbon Dioxide 25 mmol/L (22-29) 02/02/23 19:28 Anion Gap 14.9 (5-19) 02/02/23 19:28 BUN 15 mg/dL (6-20) 02/02/23 19:28 Creatinine 0.7 mg/dL (0.5-0.9) 02/02/23 19:28 GFR Calculation 86.9 mL/min (90-130) L 02/02/23 19:28 Glucose 72 mg/dL (65-115) 02/02/23 19:28 Estimat Average Glucose 100 02/02/23 19:58 Hemoglobin A1c 5.1 % (4.0-6.0) 02/02/23 19:58 Calculated Osmolality 291 mOsm/kg (285-295) 02/02/23 19:28 Calcium 8.8 mg/dL (8.5-10.5) 02/02/23 19:28 Total Bilirubin 0.2 mg/dL (0.15-1.2) 02/02/23 19:28 AST 14 U/L (0-32) 02/02/23 19:28 ALT 10 U/L (0-33) 02/02/23 19:28 Alkaline Phosphatase 102 U/L (35-105) 02/02/23 19:28 Troponin T Baseline 6 ng/L (0-10) 02/02/23 19:28 Total Protein 7.1 g/dL (6.6-8.7) 02/02/23 19:28 Albumin 4.5 g/dL (3.5-5.2) 02/02/23 19:28 Globulin 2.6 g/dL (1.3-4.6) 02/02/23 19:28 Lipase 47 U/L (13-60) 02/02/23 19:58 SARS-CoV-2 Ag (Rapid) negative (Negative) 02/02/23 20:09 Discharge Plan Discharge Patient Disposition: Placed in Observation Admit Provider: Rolf Rothman Clinical Impression: Chest pain Discharge Diet: Cardiac Discharge Activity: Resume usual activity Coding Level of Care Code ED Truck Technician for Cristian Stovall
--- NOTE | 2023-02-02 19:37 | ECG_ITS ---
[facility] Test Date: 2023-02-02 Pat Name: Danielle Hooker Department: Room: Gender: Female Lithographic Etcher: : 1965 Requested By: Derrick Mobley Order Number: [id number] Justina MD: Julian Crooks M.D. Measurements Intervals [place] Rate: 76 P: 164 AK: 164 QRS: -4 QRSD: 100 T: 118 QT: 364 QTc: 410 Interpretive Statements ELECTRONIC ATRIAL PACEMAKER LOW QRS VOLTAGE IN PRECORDIAL LEADS [QRS DEFLECTION < 1.0 mV IN CHEST LEADS] NONSPECIFIC T-WAVE ABNORMALITY Compared to ECG 06/22/2022 04:41:42 T-wave abnormality now present Electronically Signed On 02-02-2023 23:39:04 CDT by Julian Crooks M.D. [email or web address]
[2023-02-02 19:56] LABS: INR 0.97 (0.8-1.2)
[2023-02-02 20:02] LABS: Troponin(5th) Baseline 6 ng/L (0-10)
[2023-02-02 20:05] LABS: Alanine Aminotransferase 10 U/L (0-33); Albumin Level 4.5 g/dL (3.5-5.2); Alkaline Phosphatase 102 U/L (35-105); Anion Gap 14.9 (5-19); Aspartate Amino Transferase 14 U/L (0-32); Blood Urea Nitrogen 15 mg/dL (6-20); Calcium 8.8 mg/dL (8.5-10.5); Carbon Dioxide 25 mmol/L (22-29); Chloride 105 mmol/L (98-107); Globulin 2.6 g/dL (1.3-4.6); Glomerular Filtration Rate 86.9 mL/min (90-130); Glucose 72 mg/dL (65-115); Osmolality Calculated 291 mOsm/kg (285-295); Potassium 3.9 mmol/L (3.5-5.1); Sodium 141 mmol/L (136-145); Total Bilirubin 0.2 mg/dL (0.15-1.2); Total Protein 7.1 g/dL (6.6-8.7)
[2023-02-02] MEDS: aspirin 81 mg Chew Tablet 324 MG PO (20:06)
[2023-02-02 20:07] VITALS: BP 128/87; PULSE 67; RESP 12; RESP 15; O2SAT 100
[2023-02-02] MEDS: morphine 4 mg/mL SDV 1 mL IVP (20:07)
[2023-02-02 20:12] LABS: Basophils % 0.3 %; Eosinophils # 0.1 10^3/uL (0.0-0.8); Eosinophils % 1.8 %; Hematocrit 37.5 % (37.0-47.0); Hemoglobin 12.3 g/dL (11.5-15.3); Lymphocytes # 2.2 10^3/uL (0.8-4.8); Lymphocytes % 32.5 %; Mean Corpuscular HGB Conc 32.8 g/dL (30.0-36.0); Mean Corpuscular Hemoglobin 30.4 pg (28.0-34.0); Mean Corpuscular Volume 92.8 fl (81-99); Mean Platelet Volume 10.4 fL (7.4-10.4); Monocytes # 0.3 10^3/uL (0.2-0.9); Monocytes % 4.4 %; Neutrophils # 4.13 10^3/uL (1.8-7.7); Neutrophils % 60.9 %; Nucleated Red Blood Cells % 0 %; Platelet Count 175 10^3/cmm (130-400); Red Blood Count 4.04 10^6/uL (4.1-5.3); Red Cell Distribution Width 12.1 % (12.1-15.1); White Blood Count 6.8 10^3/uL (4.0-10.0)
[2023-02-02 20:32] LABS: Lipase 47 U/L (13-60)
[2023-02-02 20:34] LABS: SARS Covid-2 Antigen negative (Negative)
--- NOTE | 2023-02-02 20:58 | PM.HP ---
Providers/Chief Complaint Primary Care Provider: LILLY Chang Chief Complaint: Chest Pain History of Present Illness Danielle Hooker is a 57 year old female with history of sick sinus syndrome status post pacemaker, presents today with chief complaint of shortness of breath and chest discomfort. Patient is stating that about 9 AM to start experiencing shortness of breath while at rest, she mostly sleeps in a recliner, she is currently with her children, at rest she noticed that her symptoms are not getting better, she ignored her symptoms, went to see her at the assisted, while she was there she had another spell when she got short of breath, she also started having chest heaviness which lasted for about 4 hours and this chest heaviness was converted to chest pain on her way to the hospital. She has experienced 1 episode of emesis along nausea. She has not noticed any radiation of chest pain, she describes the chest pain as some heaviness. No previous history of [place] or CHF. Review of Systems Const: Denies: fever(s) Eyes: Denies: change in vision ENMT: Denies: throat pain Card: Reports: chest pain Resp: Reports: dyspnea; Denies: hemoptysis GI: Reports: nausea : Denies: flank pain Musc: Denies: neck pain Medications/Allergies Home Medications Medication Instructions Recorded Confirmed Last Taken Type aspirin 81 mg tablet,delayed 81 mg PO DAILY 06/28/22 01/12/23 Unknown History release (Adult Low Dose Aspirin) loperamide 2 mg capsule 2 mg PO TID 06/28/22 01/12/23 Unknown History levocetirizine 5 mg tablet 5 mg PO DAILY #90 tabs 09/27/22 01/12/23 Unknown Rx metoprolol succinate 25 mg 25 mg PO BID #180 tabs 09/27/22 01/12/23 Unknown Rx tablet,extended release 24 hr ergocalciferol (vitamin D2) 1,250 1,250 mcg PO .weekly #12 caps 10/26/22 01/12/23 Unknown Rx mcg (50,000 unit) capsule meloxicam 15 mg tablet See Rx Instructions .Route 11/21/22 01/12/23 Unknown Rx .COMPLEX #30 tabs syringe with needle 3 mL 25 gauge #4 ea 11/28/22 01/12/23 Unknown Rx x 1 (BD Luer-Kennedy Syringe) cyanocobalamin (vitamin B-12) See Rx Instructions .Route 12/12/22 01/12/23 Unknown Rx 1,000 mcg/mL injection solution .COMPLEX #1 mL mirtazapine 15 mg tablet 15 mg PO .HS #30 tabs 12/26/22 01/12/23 Unknown Rx venlafaxine 150 mg 150 mg PO DAILY #30 caps 12/26/22 01/12/23 Unknown Rx capsule,extended release 24 hr (Effexor XR) venlafaxine 75 mg capsule,extended 75 mg PO DAILY 30 days #30 caps 12/26/22 01/12/23 Unknown Rx release 24 hr (Effexor XR) Allergies Allergy/AdvReac Type Severity Reaction Status Date / Time amoxicillin Allergy Unknown Verified 01/12/23 09:26 Penicillins Allergy Unknown Verified 01/12/23 09:26 trazodone Allergy ADR-Nightma Verified 01/12/23 09:26 re macrobid Allergy Mild caused Uncoded 01/12/23 09:26 sore in her mouth PFSH Acute PFSH: Medical History Allergic rhinitis Anxiety and depression B12 deficiency Bradycardia delivery delivered Chronic diarrhea History of breast cancer Hyperlipidemia Hypertension Nausea vomiting and diarrhea Pacemaker Psychiatric care Type 2 diabetes mellitus Vitamin D deficiency Surgical History Gastric bypass status for obesity H/O bilateral mastectomy History of appendectomy History of partial hysterectomy Family History Mother COPD with asthma Pacemaker Hypertension Hyperlipidemia Lung disease Colitis Anxiety and depression Brother Anxiety and depression Diabetes Psychiatric illness schizophrenia Father Liver cirrhosis Cancer Social History Smoking and tobacco status: never smoked Second hand smoke exposure: No Alcohol intake: never Household members: spouse and children Marital status: Current occupational status: disabled Current gender identity: Female Special christopher needs: No Agree to transfusion: Yes Vitals/I&O/Wt Last Vital Signs Temp 98.3 F 02/02/23 19:35 Pulse 78 02/02/23 19:35 Resp 12 02/02/23 20:07 BP 146/89 02/02/23 19:35 Pulse Ox 99 02/02/23 19:35 Weight last 48 hrs Weight 66.678 kg Physical Exam Narrative: Patient is chest pain-free Awake alert Looks stated age Pleasant and cooperative S1, S2 paced rhythm Abdomen soft Hemodynamically stable Doing well on room air Nonfocal neuro exam Data 02/02/23 19:58 02/02/23 19:28 A&P Assessment and plan (1) B12 deficiency: (2) Type 2 diabetes mellitus: (3) Generalized anxiety disorder: (4) Major depressive disorder, recurrent severe without psychotic features: (5) Unstable angina: Plan Unstable angina We will likely do a Lexiscan stress test in the morning Troponins negative EKG showing paced rhythm Currently chest pain-free Hemodynamically stable She carries moderate risk factors such as diabetes hypertension Full code N.p.o. after midnight For hypertension continue antihypertensive regimen, will add lisinopril, hold metoprolol PTSD generalized anxiety continue antidepressants Serial troponin and EKG N.p.o. after midnight DVT prophylaxis on board Attestations Medical Necessity Statement*: Anticipate discharge within 48 hours Diagnoses B12 deficiency E53.8 Type 2 diabetes mellitus E11.9 Generalized anxiety disorder F41.1 Major depressive disorder, recurrent severe without psychotic features F33.2 Unstable angina I20.0
--- NOTE | 2023-02-02 21:05 | ECG_ITS ---
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 Measurements Intervals [place] Rate: 68 P: 156 RI: 170 QRS: -3 QRSD: 86 T: 133 QT: 373 QTc: 397 Interpretive Statements ELECTRONIC ATRIAL PACEMAKER LOW QRS VOLTAGE IN PRECORDIAL LEADS [QRS DEFLECTION < 1.0 mV IN CHEST LEADS] NONSPECIFIC T-WAVE ABNORMALITY Compared to ECG 02/02/2023 19:37:51 No significant changes Electronically Signed On 02-02-2023 23:39:43 CDT by Julian Crooks M.D. [email or web address]HLR Propertiesla [facility].[employer]/store/[id number]
[2023-02-02 21:10] VITALS: BP 158/94; PULSE 79; RESP 19; O2SAT 99
[2023-02-02 21:16] LABS: D Dimer 0.51 ug/mIFEU (0-0.59)
--- NOTE | 2023-02-02 21:41 | USCV_ITS ---
Danielle Hooker Age: 57 Gender: F : 1965 Exam Date: 02/02/2023 22:06 Ordering Phys: Rolf Rothman MD Technologist: DARRYL [place] [facility] [place]: unstable angina, HTN, HL, pacer 2019, DM2, c/o malaise, SOB BP: 158 / 94 HR: 64 Rhythm: Sinus Technical Quality: Adequate MEASUREMENTS (Male / Female) Normal Values 2D ECHO LV Diastolic Diameter PLAX 3.8 cm 4.2 - 5.9 / 3.9 - 5.3 cm LV Systolic Diameter PLAX 2.7 cm IVS Diastolic Thickness 1.1 cm 0.6 - 1.0 / 0.6 - 0.9 cm IVS Systolic Thickness 1.4 cm LVPW Diastolic Thickness 0.8 cm 0.6 - 1.0 / 0.6 - 0.9 cm LVPW Systolic Thickness 1.1 cm LVOT Diameter 1.8 cm LV Ejection Fraction 2D Teich 56.9 % LV Ejection Fraction MOD 2C 60.1 % LV Ejection Fraction 2C AL 60.1 % LA Diameter 3.0 cm LA Width 3.3 cm LA Height 4.7 cm RA Width 4.0 cm RA Height 3.9 cm Aorta at Sinotubular Diameter 2.4 cm IVC Diameter 1.8 cm M-MODE Aortic Annulus Diameter 2.6 cm LA Ao Ratio MM 1.2 MV E Point Septal Separation 0.7 cm DOPPLER AV Peak Velocity 103.0 cm/s LVOT Peak Velocity 82.0 cm/s AV Area Cont Eq vti 2.0 cm squared AV Area Cont Eq pk 2.0 cm squared MV Area PHT 4.8 cm squared Mitral E to A Ratio 0.9 MV E' Velocity 37.5 cm/s Mitral E to MV E' Ratio 9.0 Mitral E to LV E' Lateral Ratio 8.4 Mitral E to LV E' Septal Ratio 9.6 TR Peak Velocity 211.8 cm/s TR Peak Gradient 17.9 mmHg TV Peak E Velocity 49.0 cm/s Right Atrial Pressure 15.0 mmHg Pulmonary Artery Systolic Pressu 32.9 mmHg PV Peak Velocity 74.0 cm/s RV Acceleration Time 0.1 s RV Ejection Time 0.4 s RV AcT/ET 0.2 FINDINGS Left Ventricle Normal left ventricular size and systolic function, EF 63 %. Right Ventricle Catheter/pacemaker wire in the right ventricular cavity. Right Atrium Catheter/pacemaker wire in the right atrial appendage. Left Atrium The left atrium is normal in size. Mitral Valve Mild mitral valve regurgitation. Aortic Valve Mild aortic valve regurgitation. Tricuspid Valve Qhtx-qj-hqpekunf tricuspid valve regurgitation. The estimated pulmonary artery peak systolic pressure was 33 mmHg. This could be an underestimation because of the poor Doppler signals. Pulmonic Valve Structurally normal pulmonic valve without significant stenosis. There is no pulmonic regurgitation. Pericardium Normal pericardium without effusion. Aorta Normal ascending aorta dimension. IVC Dilated IVC with decreased respiratory variation. CONCLUSIONS Normal left ventricular size and systolic function, EF 63 %. Fuid-[id number]-lwinkpvp tricuspid valve regurgitation. The estimated pulmonary artery peak systolic pressure was 33 mmHg. This could be an underestimation because of the poor Doppler signals.no gross wall motion abnormalities. Mild aortic valve regurgitation. Mild mitral valve regurgitation. There is no pericardial effusion. There are no intracardiac masses. No similar previous studies are available for comparison Dr Cruz Martinez MD [facility] (Electronically Signed) Final Date: 05 February 2023 09:53 S
[2023-02-02 21:42] LABS: Troponin 5 2HR Delta 0 ABS# (0-10)
[2023-02-02] MEDS: enoxaparin 40 mg/0.4 mL Syringe SUBCUT (22:01)
[2023-02-02 22:11] VITALS: BP 142/81; PULSE 73; RESP 16; TEMP 36.5; O2SAT 100
[2023-02-02 22:20] LABS: Estmated Average Glucose 100; Hemoglobin A1C 5.1 % (4.0-6.0)
[2023-02-02 22:27] LABS: Thyroid Stimulating Hormone 3.28 uIU/mL (0.27-4.20)
[2023-02-02 23:50] VITALS: BP 133/84; PULSE 73; RESP 16; TEMP 36.6; O2SAT 100
[2023-02-03 01:20] LABS: Anion Gap 11.9 (5-19); Blood Urea Nitrogen 13 mg/dL (6-20); Carbon Dioxide 27 mmol/L (22-29); Chloride 104 mmol/L (98-107); Glomerular Filtration Rate 74.5 mL/min (90-130); Glucose 88 mg/dL (65-115); Magnesium 2.1 mg/dL (1.7-2.3); Osmolality Calculated 288 mOsm/kg (285-295); Potassium 3.9 mmol/L (3.5-5.1); Sodium 139 mmol/L (136-145)
[2023-02-03 01:58] LABS: Troponin 5 6HR Delta 0 ng/L (0-12)
--- NOTE | 2023-02-03 02:15 | ECG_ITS ---
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 Measurements Intervals [place] Rate: 73 P: 87 NE: 181 QRS: 4 QRSD: 106 T: 49 QT: 386 QTc: 427 Interpretive Statements ELECTRONIC ATRIAL PACEMAKER LOW QRS VOLTAGE IN PRECORDIAL LEADS [QRS DEFLECTION < 1.0 mV IN CHEST LEADS] ABNORMAL RHYTHM ECG Compared to ECG 02/02/2023 21:06:20 T-wave abnormality no longer present Electronically Signed On 02-03-2023 21:37:53 CDT by Cruz Martinez M.D. [email or web address].[employer]/store/[id number]
[2023-02-03 04:00] VITALS: BP 109/72; PULSE 74; RESP 16; TEMP 36.4; O2SAT 98
--- NOTE | 2023-02-03 07:19 | ECG_ITS ---
[facility] Test Date: 2023-02-03 Pat Name: Danielle Hooker Department: Room: 252 Gender: Female Bureau Chief: Kelinradha Rahman : 1965 Requested By: Rolf Rothman Order Number: [id number] Justina MD: Julian Crooks M.D. Interpretive Statements NAME OF STUDY: LEXISCAN SESTAMIBI STRESS TEST INDICATION: [Chest Pain, ] Procedure: At the baseline, the blood pressure was 148/87 mmHg with a heart rate of 63 bpm. The electrocardiogram showed normal sinus rhythm, normal axis with normal ST and T's. The Lexiscan was infused over a period of 20 seconds. A total of 0.4 mg of Lexiscan was infused. The stress phase was continued for a total of 5 minutes. Heart rate was at the end of stress phase was 82 bpm and a blood pressure of 143/90 mmHg. The EKG at the peak infusion revealed normal sinus rhythm with no significant ST-T wave changes. Sestamibi was injected 20 seconds after the Lexiscan infusion. Blood pressure at the end of recovery phase was 112/86 mmHg with a heart rate of 87 bpm. Conclusion: 1. Normal EKG response to Lexiscan infusion 2. No Lexiscan induced chest pain or cardiac arrhythmia. 3. Normal blood pressure and heart rate response. 4. Sestamibi/sestamibi perfusion scan pending; see separate report. Electronically Signed On 02-05-2023 15:20:50 CDT by Julian Crooks M.D. [email or web address].[email or web address]/store/[id number]
[2023-02-03] MEDS: regadenoson 0.4 Mg/5 ml Syringe IVP (07:25)
[2023-02-03 07:45] VITALS: BP 112/86; PULSE 84
[2023-02-03] MEDS: aspirin 81 mg EC Tablet PO (09:36)
[2023-02-03] MEDS: venlafaxine ER (24HR) 75 mg Capsule PO (09:36)
--- NOTE | 2023-02-03 10:36 | ECG_ITS ---
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 Measurements Intervals [place] Rate: 78 P: 114 NV: 151 QRS: -15 QRSD: 103 T: 32 QT: 387 QTc: 443 Interpretive Statements ELECTRONIC ATRIAL PACEMAKER ABNORMAL RHYTHM ECG Compared to ECG 02/03/2023 02:15:46 No significant changes Electronically Signed On 02-03-2023 21:23:58 CDT by Cruz Martinez M.D. [id number]
--- NOTE | 2023-02-03 11:28 | CTR_ITS ---
PROCEDURE INFORMATION: Exam: CTA Chest With Contrast Exam date and time: 02/03/2023 12:58 PM Age: 57 years old Clinical indication: Pain; Shortness of breath; Chest pressure; Prior surgery; Surgery type: Pacer, saqib mastectomy; Additional info: Chest pain and shortness of breath TECHNIQUE: Imaging protocol: Computed tomographic angiography of the chest with contrast. 3D rendering (Not supervised by radiologist): MIP and/or 3D reconstructed images were created by the technologist. Radiation optimization: All CT scans at this facility use at least one of these dose optimization techniques: automated exposure control; mA and/or kV adjustment per patient size (includes targeted exams where dose is matched to clinical indication); or iterative reconstruction. Contrast material: OMNI 350; Contrast volume: 62 ml; Contrast route: INTRAVENOUS (IV); REPORTING DATA: Count of CT and Cardiac NM exams in prior 12 months: This patient has received 3 known CTs and 0 known cardiac nuclear medicine studies in the 12 months prior to the current study. COMPARISON: CT chest w con* [id number] 08/09/2022 9:14 AM RADIATION DOSE METRICS: Total DLP (mGy-cm): 227.28 FINDINGS: Tubes, catheters and devices: There is a left subclavian dual chamber pacemaker. Prior LINX device placement. Pulmonary arteries: No sign of acute pulmonary embolism. Aorta: No thoracic aortic aneurysm or dissection. Lungs: No pneumonia or pulmonary edema. Pleural spaces: No pleural effusion or pneumothorax. Heart: The heart is not enlarged. No pericardial effusion. Coronary arteries: No calcified coronary artery atherosclerotic plaque visualized. Lymph nodes: No pathologically enlarged lymph nodes. Gallbladder and bile ducts: Prior cholecystectomy. Stomach and bowel: Prior gastric surgery, perhaps bypass surgery. Bones/joints: No acute osseous abnormality. Soft tissues: Prior bilateral mastectomy. CT/CT angio chest PE protcl [id number] IMPRESSION: No sign of acute pulmonary embolism.
[2023-02-03 11:51] VITALS: BP 119/78; PULSE 81; RESP 16; TEMP 36.6; O2SAT 98
[2023-02-03] MEDS: iohexol 350 mg/mL 500 mL Btl (per mL) IV (12:57)
--- NOTE | 2023-02-03 13:44 | PM.DCS ---
Discharge Providers Date of Admission: 02/02/23 20:53 Date of Discharge: February 03, 2023 Attending Provider at Admission: Rolf Rothman MD Attending Provider at Discharge: Magan Echavarria MD Primary Care Provider: LILLY Chang Diagnoses at Discharge Discharge Diagnosis (1) B12 deficiency: Status: Acute (2) Type 2 diabetes mellitus: Status: Acute (3) Generalized anxiety disorder: Status: Acute (4) Major depressive disorder, recurrent severe without psychotic features: Status: Acute (5) Unstable angina: Status: Acute Reason for Visit Reason for Visit: Chest Pain Hospital Course Hospital Course Danielle Hooker is a 57 year old female with history of sick sinus syndrome status post pacemaker, presents today with chief complaint of shortness of breath and chest discomfort.? Patient is stating that about 9 AM to start experiencing shortness of breath while at rest, she mostly sleeps in a recliner, she is currently with her children, at rest she noticed that her symptoms are not getting better, she ignored her symptoms, went to see her at the long-term, while she was there she had another spell when she got short of breath, she also started having chest heaviness which lasted for about 4 hours and this chest heaviness was converted to chest pain on her way to the hospital.? She has experienced 1 episode of emesis along nausea.? She has not noticed any radiation of chest pain, she describes the chest pain as some heaviness.? No previous history of [place] or CHF. Patient was admitted to [facility] for chest pain, had no significant troponin elevation, no ekg changes, stress test showed low probability obstructive cad, ct angiogram no pulmonary embolism, no recurrent chest pain, discharged home, if any recurrent chest pain go to emergency room Physical Exam Const: COMMON NORMALS: no acute distress and patient oriented x3 Resp: COMMON NORMALS: normal respiratory effort, No retractions, No use of accessory muscles and clear to auscultation bilaterally AUSCULTATION: clear to auscultation bilaterally Cardio: COMMON NORMALS: regular rate, regular rhythm, S1 normal heart sound present and S2 normal heart sound present RATE: regular rate RHYTHM: regular rhythm HEART SOUNDS: S1 normal heart sound present and S2 normal heart sound present GI: COMMON NORMALS: Normal to inspection, nondistended, normoactive bowel sounds present and non-tender Extremity: COMMON NORMALS: no pedal edema Neuro: COMMON NORMALS: patient oriented x3 Psych: COMMON NORMALS: mental status grossly normal Discharge Data Studies Completed and Pending Completed Studies During Hospitalization Category Date Time Status CT angio chest PE protcl [id number] Stat Cat Scan 02/03/23 11:28 Completed Sestamibi Stress Test Request Routine Exams 02/03/23 07:19 Draft XR chest 1V portable [id number] Stat Exams 02/02/23 19:05 Completed NM dinorah perf SPECT r/s* [id number] Routine Nuc Med 02/03/23 21:41 Completed Pending at discharge Category Date Time Status Sestamibi Stress Test Request Routine Exams 02/02/23 21:41 Stop Req CV. echo complete* [id number] Routine Ultrasound 02/02/23 21:41 Taken Radiology Impressions Chest X-Ray 02/02/23 19:05 IMPRESSION: No acute findings. Chest CTA 02/03/23 11:28 IMPRESSION: No sign of acute pulmonary embolism. Laboratory Results WBC 6.8 10^3/uL (4.0-10.0) 02/02/23 19:58 Corrected WBC Cancelled 02/02/23 19:28 RBC 4.04 10^6/uL (4.1-5.3) L 02/02/23 19:58 Hgb 12.3 g/dL (11.5-15.3) 02/02/23 19:58 Hct 37.5 % (37.0-47.0) 02/02/23 19:58 MCV 92.8 fl (81-99) 02/02/23 19:58 MCH 30.4 pg (28.0-34.0) 02/02/23 19:58 MCHC 32.8 g/dL (30.0-36.0) 02/02/23 19:58 RDW 12.1 % (12.1-15.1) 02/02/23 19:58 Plt Count 175 10^3/cmm (130-400) 02/02/23 19:58 MPV 10.4 fL (7.4-10.4) 02/02/23 19:58 Gran % Cancelled 02/02/23 19:28 Neut % (Auto) 60.9 % 02/02/23 19:58 Lymph % (Auto) 32.5 % 02/02/23 19:58 Ashe % (Auto) 4.4 % 02/02/23 19:58 Eos % (Auto) 1.8 % 02/02/23 19:58 Baso % (Auto) 0.3 % 02/02/23 19:58 Neut # (Auto) 4.13 10^3/uL (1.8-7.7) 02/02/23 19:58 Lymph # (Auto) 2.2 10^3/uL (0.8-4.8) 02/02/23 19:58 [place]he # (Auto) 0.3 10^3/uL (0.2-0.9) 02/02/23 19:58 Eos # (Auto) 0.1 10^3/uL (0.0-0.8) 02/02/23 19:58 Baso # (Auto) 0.0 10^3/uL (0.0-0.1) 02/02/23 19:58 Absolute Gran (auto) Cancelled 02/02/23 19:28 Nucleated RBC % (auto) 0 % 02/02/23 19:58 Nucleated RBCs # 0.0 /100WBC 02/02/23 19:58 PT 13.20 SECONDS (12.1-14.9) 02/02/23 19:28 INR 0.97 (0.8-1.2) 02/02/23 19:28 D-Dimer 0.51 ug/mIFEU (0-0.59) 02/02/23 19:28 Sodium 139 mmol/L (136-145) 02/03/23 00:46 Potassium 3.9 mmol/L (3.5-5.1) 02/03/23 00:46 Chloride 104 mmol/L (98-107) 02/03/23 00:46 Carbon Dioxide 27 mmol/L (22-29) 02/03/23 00:46 Anion Gap 11.9 (5-19) 02/03/23 00:46 BUN 13 mg/dL (6-20) 02/03/23 00:46 Creatinine 0.8 mg/dL (0.5-0.9) 02/03/23 00:46 GFR Calculation 74.5 mL/min (90-130) L 02/03/23 00:46 Glucose 88 mg/dL (65-115) 02/03/23 00:46 Estimat Average Glucose 100 02/02/23 19:58 Hemoglobin A1c 5.1 % (4.0-6.0) 02/02/23 19:58 Calculated Osmolality 288 mOsm/kg (285-295) 02/03/23 00:46 Calcium 9.0 mg/dL (8.5-10.5) 02/03/23 00:46 Phosphorus 4.0 mg/dL (2.5-4.5) 02/03/23 00:46 Magnesium 2.1 mg/dL (1.7-2.3) 02/03/23 00:46 Total Bilirubin 0.2 mg/dL (0.15-1.2) 02/02/23 19:28 AST 14 U/L (0-32) 02/02/23 19:28 ALT 10 U/L (0-33) 02/02/23 19:28 Alkaline Phosphatase 102 U/L (35-105) 02/02/23 19:28 Troponin T Baseline 6 ng/L (0-10) 02/02/23 19:28 Troponin T 120 Minute 6.00 ng/L (0-10) 02/02/23 21:13 Delta Troponin T 0 ABS# (0-10) 02/02/23 21:13 Troponin T Hi Sens 6Hr 6.00 ng/L (0-10) 02/03/23 00:46 Troponin T Hi Sens 6Hr Delta 0 ng/L (0-12) 02/03/23 00:46 Total Protein 7.1 g/dL (6.6-8.7) 02/02/23 19:28 Albumin 4.5 g/dL (3.5-5.2) 02/02/23 19:28 Globulin 2.6 g/dL (1.3-4.6) 02/02/23 19:28 Lipase 47 U/L (13-60) 02/02/23 19:58 TSH 3.28 uIU/mL (0.27-4.20) 02/02/23 21:13 SARS-CoV-2 Ag (Rapid) negative (Negative) 02/02/23 20:09 Vitals Last Vital Signs Temp 97.9 F 02/03/23 11:51 Pulse 81 02/03/23 11:51 Resp 16 02/03/23 11:51 BP 119/78 02/03/23 11:51 Pulse Ox 98 02/03/23 11:51 O2 Del Method 02/03/23 11:51 Discharge Plan Discharge Patient Disposition: Home Condition: Stable Prescriptions: New lisinopril 10 mg Tablet 10 mg PO DAILY 30 Days Qty: 30 0RF Continued metoprolol succinate 25 mg tablet extended release 24 hr 25 mg PO BID Qty: 180 0RF levocetirizine 5 mg tablet 5 mg PO DAILY Qty: 90 0RF ergocalciferol (vitamin D2) 1,250 mcg (50,000 unit) capsule 1,250 mcg PO .weekly Qty: 12 1RF venlafaxine [Effexor XR] 150 mg capsule,extended release 24hr 150 mg PO DAILY Qty: 30 0RF Rx Instructions: Start after taking 75 mg for 1 month. loperamide 2 mg capsule 2 mg PO TID PRN (Reason: Diarrhea) aspirin [Adult Low Dose Aspirin] 81 mg tablet,delayed release (DR/EC) 81 mg PO DAILY (DME) BD Luer-Kennedy Syringe 3 mL 25 gauge x 1 syringe See Rx Instructions .ROUTE .COMPLEX Qty: 4 2RF Dose Instruction: USE DIRECTED Rx Instructions: USE DIRECTED cyanocobalamin (vitamin B-12) 1,000 mcg/mL solution See Rx Instructions .ROUTE .COMPLEX Qty: 1 2RF Dose Instruction: INJECT 1 ML (CC) INTRAMUSCULARLY ONCE A WEEK Rx Instructions: INJECT 1 ML (CC) INTRAMUSCULARLY ONCE A month rosuvastatin 40 mg Tablet 40 mg PO DAILY Vitamin D3 50 mcg (2,000 unit) Capsule 50 mcg PO DAILY meloxicam 15 mg tablet 15 mg PO DAILY PRN (Reason: Pain) mirtazapine 15 mg tablet 15 mg PO BEDTIME Discharge Orders: Discharge Order (Routine); Ordered 02/03/23 Ordered By: Magan Echavarria Referrals: Ana M Putnam FNP [Primary Care Provider] - Discharge Diet: Cardiac Discharge Activity: Resume usual activity Patient Instructions: Opioid Safety Discharge Attestations Time Spent in Discharge Care*: greater than 30 min Quality Metrics Clinical Quality Measures [ No reported AMI, CVA or VTE this stay] Coding Level of Care Code 50060 Total time (in minutes) for Discharge: 40 Diagnoses B12 deficiency E53.8 Type 2 diabetes mellitus E11.9 Generalized anxiety disorder F41.1 Major depressive disorder, recurrent severe without psychotic features F33.2 Unstable angina I20.0
--- NOTE | 2023-02-03 21:41 | NMCV_ITS ---
NM dinorah perf SPECT r/s* [id number] Danielle Hooker Age: 57 Gender: F : 1965 Exam Date: 02/03/2023 06:28 Ordering Phys: Rolf Rothman MD Technologist: NURIS Newberry Exam [facility] Indications: CHEST PAIN STRESS TEST [facility] IMAGE PROTOCOL Rest/Stress 1 Lexiscan Day Radiopharmaceutical Dose (mCi) Administration Site Administered by Rest: Tc-99m 11.0 IV Matt Merritt, SPECIFICATION MANAGER Sestamibi Stress:Tc-99m 33.0 IV Matt Merritt, SPECIFICATION MANAGER Sestamibi Rest: 03-Feb-2023 60 Discovery 630 Stress: 03-Feb-2023 30 Discovery 630 0.4mg Lexiscan. Images obtained in supine and prone position. SPECT RESULTS Technical Quality: Excellent Raw Data Analysis: Normal Image Corrections: No attenuation or motion correction applied Summed Stress Score: 0 Summed Rest Score: 0 Summed Difference Score: 0 PERFUSION FINDINGS SPECT images demonstrate homogeneous tracer distribution throughout the myocardium. FUNCTIONAL RESULTS (calculated via Gated SPECT) Stress Image LV EF (%): 60 Stress EDV (mL):72 TID: 0.92 Stress ESV (mL):29 FUNCTIONAL FINDINGS: There is normal left ventricular systolic function. IMPRESSIONS 1. Normal myocardial perfusion imaging with no evidence of ischemia 2. LV systolic function is normal Julian Crooks MD (Electronically Signed) Final Date: 03 February 2023 11:05 S
== END 2023-02-03 15:58 | disposition home or self-care (01) ==
LOC: ER 20:53 → MEDSURG 21:10
PROVIDERS: Emergency Medicine; Admitting Provider Internal Medicine; Emergency Provider Emergency Medicine; PCP Nurse Practitioner Family; Visit Provider Family Medicine
DX: I20.0 Unstable angina (principal); I49.5 Sick sinus syndrome; R94.31 Abnormal electrocardiogram [ECG] [EKG]; Z95.0 Presence of cardiac pacemaker; R11.2 Nausea with vomiting, unspecified; I10 Essential (primary) hypertension; E78.5 Hyperlipidemia, unspecified; E11.9 Type 2 diabetes mellitus without complications; Z79.82 Long term (current) use of aspirin; E53.8 Deficiency of other specified B group vitamins; F41.1 Generalized anxiety disorder; F33.2 Major depressive disorder, recurrent severe without psychotic features; E55.9 Vitamin D deficiency, unspecified; I08.3 Combined rheumatic disorders of mitral, aortic and tricuspid valves
CPT/HCPCS: 36415; 71045; 71275; 78452; 80048; 80053; 83036; 83690; 83735; 84100; 84443; 84484; 85025; 85378; 85610; 87426; 93005; 93017; 93306; 96372; 96374; 99285; A9500; G0378; J1650; J2270; J2785; Q9967

== ENCOUNTER 2023-02-26 15:34 | Emergency (ER) | payer MEDICAID, SELFPAY ==
[2023-02-26 15:44] VITALS: BP 167/98; PULSE 95; RESP 18; TEMP 36.5; O2SAT 99
--- NOTE | 2023-02-26 15:54 | W.ED.SKABFB ---
HPI - Skin/Abscess/Foreign Bdy General: Chief complaint: Skin/Abscess/Foreign Body Stated complaint: pt states has bugs in skin Time Seen by Provider: 02/26/23 15:48 History of Present Illness: Patient is a 57-year-old female comes to the ED with tick bite on her abdomen. Patient says she got a tick bite on left side of abdomen several days ago and pulled tick out. Area where tick was removed is a little sore and red. Denies any fevers, nausea/vomiting, body aches or any other symptoms. Patient stated she just wanted to come get checked out. Associated symptoms: Deny chills, fever(s), nausea or vomiting Review of Systems Const: Denies: fever(s), chills or fatigue Eyes: Denies: change in vision or eye discomfort ENMT: Denies: throat pain, odynophagia, nasal discharge or nasal congestion Card: Denies: chest pain, palpitations, edema, swelling of feet/ankles, dyspnea on exertion or orthopnea Resp: Denies: dyspnea, productive cough or non-productive cough GI: Denies: abdominal pain, nausea, vomiting, diarrhea, constipation or hematochezia : Denies: flank pain, dysuria or hematuria Musc: Denies: neck pain, back pain or extremity swelling Skin/Breast: Reports: new lesions (Tick bite on left side of abdomen); Denies: rash Neuro: Denies: headache(s), numbness in extremities or weakness in extremities [facility] ED PFSH: Medical History Allergic rhinitis Anxiety and depression B12 deficiency Bradycardia delivery delivered Chronic diarrhea History of breast cancer Hyperlipidemia Hypertension Nausea vomiting and diarrhea Pacemaker Psychiatric care Type 2 diabetes mellitus Vitamin D deficiency Surgical History Gastric bypass status for obesity H/O bilateral mastectomy History of appendectomy History of partial hysterectomy Family History Mother COPD with asthma Pacemaker Hypertension Hyperlipidemia Lung disease Colitis Anxiety and depression Brother Anxiety and depression Diabetes Psychiatric illness schizophrenia Father Liver cirrhosis Cancer Social History Smoking and tobacco status: never smoked Second hand smoke exposure: No Alcohol intake: never Substance/Drug Use: never Household members: spouse and children Marital status: Current occupational status: disabled Current gender identity: Female Special christopher needs: No Agree to transfusion: Yes Physical Exam Const: COMMON NORMALS: no acute distress, patient oriented x3 and alert GENERAL APPEARANCE: cooperative and comfortable HENMT: COMMON NORMALS: normocephalic HEAD & SCALP: normocephalic MOUTH: Normal oral and palatal mucosa present THROAT: posterior oropharynx normal and uvula midline Neck/C-Spine: COMMON NORMALS: supple GENERAL: Yes normal visual inspection Resp: COMMON NORMALS: normal respiratory effort, No retractions, No use of accessory muscles and clear to auscultation bilaterally AUSCULTATION: clear to auscultation bilaterally Cardio: COMMON NORMALS: regular rate, regular rhythm, S1 normal heart sound present, S2 normal heart sound present, No gallops present (Cardio), No clicks present (Cardio), No murmurs present (Cardio) and Peripheral pulses 2+ throughout RATE: regular rate RHYTHM: regular rhythm HEART SOUNDS: S1 normal heart sound present and S2 normal heart sound present PERIPHERAL PULSES: Peripheral pulses 2+ throughout GI: COMMON NORMALS: Normal to inspection, nondistended, normoactive bowel sounds present, Soft to palpation, non-tender and no masses PALPATION: Yes Soft to palpation : COMMON NORMALS: Yes no CVA tenderness BLADDER/KIDNEY EXAM: Yes no CVA tenderness Back/Pelvis: COMMON NORMALS: no CVA tenderness Extremity: COMMON NORMALS: normal to inspection Neuro: COMMON NORMALS: patient oriented x3 SENSORIUM/ORIENTATION: Yes alert GAIT: Yes Normal gait present Skin: NARRATIVE SKIN EXAM: Left side of patient's abdomen. She is small erythemic and mildly tender papule where tick bite was. No erythema migrans rash seen. No purulent drainage noted. GENERAL SKIN EXAM: dry skin Course Vital Signs: Vital signs: Vital Signs Temperature 97.7 F 02/26/23 15:44 Pulse Rate 95 02/26/23 15:44 Respiratory Rate 18 02/26/23 15:44 Blood Pressure 167/98 02/26/23 15:44 Pulse Oximetry 99 02/26/23 15:44 Oxygen Delivery Me thod Room Air 02/26/23 15:44 MDM - Skin/Abscess/Foreign Bdy Medicial Decision Making Patient is a 57-year-old female comes to the ED with tick bite on her abdomen. Patient says she got a tick bite on left side of abdomen several days ago and pulled tick out. Area where tick was removed is a little sore and red. Denies any fevers, nausea/vomiting, body aches or any other symptoms. Patient stated she just wanted to come get checked out. Left side of patient's abdomen. She is small erythemic and mildly tender papule where tick bite was. No erythema migrans rash seen. No purulent drainage noted. Vitals are stable. Patient was diagnosed with tick bite on abdomen and was stable for discharge home. She was sent home with a prescription for doxycycline and told to follow-up with her PCP in the next week for reevaluation. Patient understood and agreed with plan. Discharge Plan Discharge Patient Disposition: Home Clinical Impression: Tick bite of abdomen Qualifiers: Encounter type: initial encounter Qualified Code(s): S30.861A - Insect bite (nonvenomous) of abdominal wall, initial encounter Condition: Stable Prescriptions: New doxycycline hyclate 100 mg capsule 100 mg PO BID 10 Days Qty: 20 0RF No Action metoprolol succinate 25 mg tablet extended release 24 hr 25 mg PO BID Qty: 180 0RF levocetirizine 5 mg tablet 5 mg PO DAILY Qty: 90 0RF ergocalciferol (vitamin D2) 1,250 mcg (50,000 unit) capsule 1,250 mcg PO .weekly Qty: 12 1RF venlafaxine [Effexor XR] 150 mg capsule,extended release 24hr 150 mg PO DAILY Qty: 30 2RF mirtazapine 15 mg tablet 15 mg PO BEDTIME Qty: 30 2RF loperamide 2 mg capsule 2 mg PO TID PRN (Reason: Diarrhea) aspirin [Adult Low Dose Aspirin] 81 mg tablet,delayed release (DR/EC) 81 mg PO DAILY (DME) BD Luer-Kennedy Syringe 3 mL 25 gauge x 1 syringe See Rx Instructions .ROUTE .COMPLEX Qty: 4 2RF Dose Instruction: USE DIRECTED Rx Instructions: USE DIRECTED cyanocobalamin (vitamin B-12) 1,000 mcg/mL solution See Rx Instructions .ROUTE .COMPLEX Qty: 1 2RF Dose Instruction: INJECT 1 ML (CC) INTRAMUSCULARLY ONCE A WEEK Rx Instructions: INJECT 1 ML (CC) INTRAMUSCULARLY ONCE A month rosuvastatin 40 mg tablet 40 mg PO DAILY Qty: 30 2RF Vitamin D3 50 mcg (2,000 unit) Capsule 50 mcg PO DAILY meloxicam 15 mg tablet 15 mg PO DAILY PRN (Reason: Pain) lisinopril 10 mg Tablet 10 mg PO DAILY 30 Days Qty: 30 0RF Discharge Orders: Discharge ED (Routine); Ordered 02/26/23 Ordered By: Rafa Dixon Referrals: Ana M Putnam, DIRECTOR OF MATERNITY SERVICES [Primary Care Provider] - Discharge Diet: Regular Discharge Activity: Increase activity as tolerated Patient Instructions: Tick Bite (ED) Activity Restrictions/Additional Instructions: Follow-up with medical provider as directed in the next 5 to 7 days for reevaluation. Take medications as prescribed. Return to the ER or your medical provider if condition worsens. Please read and understand discharge instructions. Thank you for choosing [facility] for your healthcare needs today. Please realize this is an emergency room and that we are providing you with a medical screening exam and this may not be complete and all inclusive of all the testing and or work up that you may need to determine your ailment or severity of your illness. It is very important that you follow up as instructed or that you return to the Emergency Department should you have concerns or if your condition changes or worsens in any way. Coding Level of Care Code ED Supervisor Extruding Department for Cristian Stovall
== END 2023-02-26 16:19 | disposition home or self-care (01) ==
PROVIDERS: Emergency Provider Physician Assistant; PCP Nurse Practitioner Family
DX: S30.861A Insect bite (nonvenomous) of abdominal wall, initial encounter (principal); X58.XXXA Exposure to other specified factors, initial encounter
CPT/HCPCS: 99283

== ENCOUNTER → 2023-02-28 13:12 | Outpatient (BNVA) | payer MEDICAID, SELFPAY | PROVIDERS: PCP Nurse Practitioner Family; Visit Provider Internal Medicine | DX: R06.09 Other forms of dyspnea (principal); R07.9 Chest pain, unspecified; I10 Essential (primary) hypertension; E11.9 Type 2 diabetes mellitus without complications; Z95.0 Presence of cardiac pacemaker | CPT/HCPCS: 36415; 80048; 83880; 99204 ==

== ENCOUNTER 2023-03-04 16:42 | Emergency (ER) | payer MEDICAID, SELFPAY ==
[2023-03-04 16:43] VITALS: BP 137/82; PULSE 81; RESP 18; TEMP 36.7; O2SAT 96; BMI 27.6
--- NOTE | 2023-03-04 16:47 | ECG_ITS ---
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 Measurements Intervals [place] Rate: 84 P: 213 MS: 157 QRS: 6 QRSD: 87 T: 131 QT: 340 QTc: 403 Interpretive Statements ELECTRONIC ATRIAL PACEMAKER LOW QRS VOLTAGE IN PRECORDIAL LEADS [QRS DEFLECTION < 1.0 mV IN CHEST LEADS] POSSIBLE RIGHT VENTRICULAR CONDUCTION DELAY [RSR (QR) IN V1/V2] NONSPECIFIC T-WAVE ABNORMALITY Compared to ECG 02/03/2023 10:55:38 Low QRS voltage now present T-wave abnormality now present Electronically Signed On 03-05-2023 10:19:41 CDT by Shaggy Birmingham M.D. [id number]
--- NOTE | 2023-03-04 17:24 | XRR_ITS ---
PROCEDURE INFORMATION: Exam: XR Chest Exam date and time: 03/04/2023 5:31 PM Age: 57 years old Clinical indication: Sternal or substernal pain; Additional info: Midsternal chest pain TECHNIQUE: Imaging protocol: Radiologic exam of the chest. Views: 1 view. COMPARISON: CR (CHEST, ) 02/02/2023 7:22 PM FINDINGS: Tubes, catheters and devices: Evidence of previous gastric band procedure with device projecting just below the left hemidiaphragm. Lungs: Unremarkable. No consolidation. Pleural spaces: Unremarkable. No pleural effusion. No pneumothorax. Heart/Mediastinum: Cardiac silhouette is borderline enlarged. There are pacemaker wires extending into the right atrium and right ventricle. Bones/joints: Unremarkable for age. XR/XR chest 1V portable [id number] IMPRESSION: Borderline cardiomegaly otherwise negative portable chest.
[2023-03-04] MEDS: aspirin 81 mg Chew Tablet 324 MG PO (17:39)
--- NOTE | 2023-03-04 17:50 | W.ED.CHESTPA ---
HPI - Chest Pain General: Chief Complaint: Chest Pain Stated Complaint: CP Time Seen by Provider: 03/04/23 17:15 History of Present Illness: 57-year-old female presents emergency department chief complaint of having intermittent chest pain reports been ongoing for last 2 days she was recent seen by her electrical mechanical technician about 4 days ago and given a please clean bill of [place] patient reports to play with her grandkids when she developed midsternal chest pain report mild shortness of breath with it she reported no other associated symptoms patient reports that is reproducible on exam reports having no recent fevers or chills or cough congestion or any other associated symptoms Associated symptoms: Deny abdominal pain, dyspnea, fever(s), nausea, palpitations or vomiting Review of Systems General: Reports: 10 or more systems reviewed and unremarkable except in HPI and below Const: Denies: fever(s), chills, fatigue or malaise Eyes: Denies: change in vision or blurry vision Card: Reports: chest pain; Denies: palpitations Resp: Denies: dyspnea or productive cough GI: Denies: abdominal pain, nausea or vomiting : Denies: flank pain Musc: Denies: extremity pain or extremity swelling Skin/Breast: Denies: rash or pruritus Neuro: Denies: headache(s) Psych: Denies: anxiety or depression Hany/Lymph: Denies: easy bleeding All/Imm: Denies: urticaria, throat swelling or facial swelling PFSH ED PFSH: Medical History Allergic rhinitis Anxiety and depression B12 deficiency Bradycardia delivery delivered Chronic diarrhea History of breast cancer Hyperlipidemia Hypertension Nausea vomiting and diarrhea Pacemaker Psychiatric care Type 2 diabetes mellitus Vitamin D deficiency Surgical History Gastric bypass status for obesity H/O bilateral mastectomy History of appendectomy History of partial hysterectomy Family History Mother COPD with asthma Pacemaker Hypertension Hyperlipidemia Lung disease Colitis Anxiety and depression Brother Anxiety and depression Diabetes Psychiatric illness schizophrenia Father Liver cirrhosis Cancer Social History Smoking and tobacco status: never smoked Second hand smoke exposure: No Alcohol intake: never Substance/Drug Use: never Household members: spouse and children Marital status: Current occupational status: disabled Current gender identity: Female Special christopher needs: No Agree to transfusion: Yes Physical Exam Narrative: EXAM NARRATIVE: Patient appears nontoxic appears in no obvious acute distress currently Const: COMMON NORMALS: no acute distress, patient oriented x3 and healthy appearing HENMT: COMMON NORMALS: normocephalic and atraumatic HEAD & SCALP: normocephalic and atraumatic Eye: COMMON NORMALS: Equal, round and reactive pupils present and EOMs intact bilaterally PUPIL: Yes Equal, round and reactive pupils present Neck/C-Spine: COMMON NORMALS: full ROM, supple and no JVD Lymph: LYMPHATIC: no lymphadenopathy noted Chest: COMMONS NORMALS: normal inspection of the chest and normal palpation of entire chest wall OTHER: Reproducible anterior left-sided chest wall tenderness appreciated no obvious crepitus step-offs ecchymosis noted Resp: COMMON NORMALS: normal respiratory effort, No retractions and clear to auscultation bilaterally EFFORT & INSPECTION: Yes able to speak in complete sentences and Yes symmetric chest movement AUSCULTATION: clear to auscultation bilaterally Cardio: COMMON NORMALS: no JVD, regular rate and regular rhythm RATE: regular rate RHYTHM: regular rhythm GI: COMMON NORMALS: Normal to inspection, nondistended, normoactive bowel sounds present, Soft to palpation and non-tender INSPECTION: Yes normal to inspection PALPATION: Yes Soft to palpation : COMMON NORMALS: Yes no CVA tenderness BLADDER/KIDNEY EXAM: Yes no CVA tenderness Back/Pelvis: COMMON NORMALS: no CVA tenderness Extremity: COMMON NORMALS: normal to inspection and full ROM Neuro: COMMON NORMALS: patient oriented x3, CN's II-XII intact bilaterally, moves all extremities and no focal motor deficits Psych: COMMON NORMALS: mental status grossly normal, Normal thought process present, cooperative and normal affect THOUGHT PROCESS: Normal thought process present Skin: COMMON NORMALS: no rashes or lesions noted GENERAL SKIN EXAM: no rashes or lesions noted Course Vital Signs: Vital signs: Vital Signs Temperature 98.1 F 03/04/23 16:43 Pulse Rate 77 03/04/23 18:00 Respiratory Rate 15 03/04/23 18:00 Blood Pressure 128/86 03/04/23 18:00 Pulse Oximetry 100 03/04/23 18:00 Oxygen Delivery Me thod Room Air 03/04/23 18:00 MDM - Chest Pain Medical Decision Making Due to patient's symptoms and condition lab work imaging will be obtained we will continue to follow due to patient's cardiac history of any cardiac work-up will be obtained however based upon patient's current symptoms will be doing a cardiac work-up Lab Data 03/04/23 17:50 03/04/23 17:50 Radiology Impressions Chest X-Ray 03/04/23 17:24 IMPRESSION: Borderline cardiomegaly otherwise negative portable chest. Laboratory Results WBC 7.2 10^3/uL (4.0-10.0) 03/04/23 17:50 RBC 3.99 10^6/uL (4.1-5.3) L 03/04/23 17:50 Hgb 12.2 g/dL (11.5-15.3) 03/04/23 17:50 Hct 36.5 % (37.0-47.0) L 03/04/23 17:50 MCV 91.5 fl (81-99) 03/04/23 17:50 MCH 30.6 pg (28.0-34.0) 03/04/23 17:50 MCHC 33.4 g/dL (30.0-36.0) 03/04/23 17:50 RDW 12.7 % (12.1-15.1) 03/04/23 17:50 Plt Count 171 10^3/cmm (130-400) 03/04/23 17:50 MPV 10.4 fL (7.4-10.4) 03/04/23 17:50 Neut % (Auto) 55.8 % 03/04/23 17:50 Lymph % (Auto) 37.1 % 03/04/23 17:50 [place] % (Auto) 4.7 % 03/04/23 17:50 Eos % (Auto) 1.7 % 03/04/23 17:50 Baso % (Auto) 0.6 % 03/04/23 17:50 Neut # (Auto) 4.01 10^3/uL (1.8-7.7) 03/04/23 17:50 Lymph # (Auto) 2.7 10^3/uL (0.8-4.8) 03/04/23 17:50 [place] # (Auto) 0.3 10^3/uL (0.2-0.9) 03/04/23 17:50 Eos # (Auto) 0.1 10^3/uL (0.0-0.8) 03/04/23 17:50 Baso # (Auto) 0.0 10^3/uL (0.0-0.1) 03/04/23 17:50 Nucleated RBC % (auto) 0 % 03/04/23 17:50 Nucleated RBCs # 0.0 /100WBC 03/04/23 17:50 Sodium 140 mmol/L (136-145) 03/04/23 17:50 Potassium 4.2 mmol/L (3.5-5.1) 03/04/23 17:50 Chloride 104 mmol/L (98-107) 03/04/23 17:50 Carbon Dioxide 26 mmol/L (22-29) 03/04/23 17:50 Anion Gap 14.2 (5-19) 03/04/23 17:50 BUN 13 mg/dL (6-20) 03/04/23 17:50 Creatinine 0.6 mg/dL (0.5-0.9) 03/04/23 17:50 GFR Calculation 103.8 mL/min (90-130) 03/04/23 17:50 Glucose 88 mg/dL (65-115) 03/04/23 17:50 Calculated Osmolality 290 mOsm/kg (285-295) 03/04/23 17:50 Calcium 8.8 mg/dL (8.5-10.5) 03/04/23 17:50 Total Bilirubin 0.2 mg/dL (0.15-1.2) 03/04/23 17:50 AST 14 U/L (0-32) 03/04/23 17:50 ALT 11 U/L (0-33) 03/04/23 17:50 Alkaline Phosphatase 87 U/L (35-105) 03/04/23 17:50 Troponin T Baseline 6 ng/L (0-10) 03/04/23 17:50 Troponin T 120 Minute 6.00 ng/L (0-10) 03/04/23 19:37 Delta Troponin T 0 ABS# (0-10) 03/04/23 19:37 NT-Pro-B Natriuret Pep 36 pg/mL (0-125) 03/04/23 17:50 Total Protein 6.5 g/dL (6.6-8.7) L 03/04/23 17:50 Albumin 4.3 g/dL (3.5-5.2) 03/04/23 17:50 Globulin 2.2 g/dL (1.3-4.6) 03/04/23 17:50 Discharge Plan Discharge Patient Disposition: Home Clinical Impression: Intermittent chest pain, Stable angina Condition: Stable Prescriptions: No Action metoprolol succinate 25 mg tablet extended release 24 hr 25 mg PO BID Qty: 180 0RF levocetirizine 5 mg tablet 5 mg PO DAILY Qty: 90 0RF ergocalciferol (vitamin D2) 1,250 mcg (50,000 unit) capsule 1,250 mcg PO .weekly Qty: 12 1RF venlafaxine [Effexor XR] 150 mg capsule,extended release 24hr 150 mg PO DAILY Qty: 30 2RF mirtazapine 15 mg tablet 15 mg PO BEDTIME Qty: 30 2RF loperamide 2 mg capsule 2 mg PO TID PRN (Reason: Diarrhea) aspirin [Adult Low Dose Aspirin] 81 mg tablet,delayed release (DR/EC) 81 mg PO DAILY (DME) BD Luer-Kennedy Syringe 3 mL 25 gauge x 1 syringe See Rx Instructions .ROUTE .COMPLEX Qty: 4 2RF Dose Instruction: USE DIRECTED Rx Instructions: USE DIRECTED cyanocobalamin (vitamin B-12) 1,000 mcg/mL solution See Rx Instructions .ROUTE .COMPLEX Qty: 1 2RF Dose Instruction: INJECT 1 ML (CC) INTRAMUSCULARLY ONCE A WEEK Rx Instructions: INJECT 1 ML (CC) INTRAMUSCULARLY ONCE A month rosuvastatin 40 mg tablet 40 mg PO DAILY Qty: 30 2RF Vitamin D3 50 mcg (2,000 unit) Capsule 50 mcg PO DAILY meloxicam 15 mg tablet 15 mg PO DAILY PRN (Reason: Pain) lisinopril 10 mg Tablet 10 mg PO DAILY 30 Days Qty: 30 0RF doxycycline hyclate 100 mg capsule 100 mg PO BID 10 Days Qty: 20 0RF Discharge Orders: Discharge ED (Routine); Ordered 03/04/23 Ordered By: Kevin Taylor Referrals: Ana M Putnam, [facility] [Primary Care Provider] - 1-3 days (For further assessment and management.) Discharge Diet: Cardiac Discharge Activity: Increase activity as tolerated Patient Instructions: Chest Pain (ED), Noncardiac Chest Pain (ED) Activity Restrictions/Additional Instructions: Your lab work and imaging obtained to the emergency department today is come back unremarkable your chest pain that you have described this time does not appear to be of cardiac origin as your heart enzymes are come back unremarkable as well as her structures of the heart please however further follow-up department care doctor or electrical mechanical technician for further assessment and management in which she please return the interim if your symptoms persist or worse. Coding Level of Care Code ED Real Estate Investment Analyst for Cristian Stoavll
[2023-03-04] MEDS: sodium chloride 0.9% 1,000 ML 999 ML IV (17:53)
[2023-03-04 18:00] VITALS: BP 128/86; PULSE 77; RESP 15; O2SAT 100
[2023-03-04 18:06] LABS: Basophils % 0.6 %; Eosinophils # 0.1 10^3/uL (0.0-0.8); Eosinophils % 1.7 %; Hematocrit 36.5 % (37.0-47.0); Hemoglobin 12.2 g/dL (11.5-15.3); Lymphocytes # 2.7 10^3/uL (0.8-4.8); Lymphocytes % 37.1 %; Mean Corpuscular HGB Conc 33.4 g/dL (30.0-36.0); Mean Corpuscular Hemoglobin 30.6 pg (28.0-34.0); Mean Corpuscular Volume 91.5 fl (81-99); Mean Platelet Volume 10.4 fL (7.4-10.4); Monocytes # 0.3 10^3/uL (0.2-0.9); Monocytes % 4.7 %; Neutrophils # 4.01 10^3/uL (1.8-7.7); Neutrophils % 55.8 %; Nucleated Red Blood Cells % 0 %; Platelet Count 171 10^3/cmm (130-400); Red Blood Count 3.99 10^6/uL (4.1-5.3); Red Cell Distribution Width 12.7 % (12.1-15.1); White Blood Count 7.2 10^3/uL (4.0-10.0)
[2023-03-04 18:30] LABS: Troponin(5th) Baseline 6 ng/L (0-10)
[2023-03-04 18:39] LABS: Alanine Aminotransferase 11 U/L (0-33); Albumin Level 4.3 g/dL (3.5-5.2); Alkaline Phosphatase 87 U/L (35-105); Anion Gap 14.2 (5-19); Aspartate Amino Transferase 14 U/L (0-32); Blood Urea Nitrogen 13 mg/dL (6-20); Calcium 8.8 mg/dL (8.5-10.5); Carbon Dioxide 26 mmol/L (22-29); Chloride 104 mmol/L (98-107); Globulin 2.2 g/dL (1.3-4.6); Glomerular Filtration Rate 103.8 mL/min (90-130); Glucose 88 mg/dL (65-115); NT Pro B Type Natriuretic Pept 36 pg/mL (0-125); Osmolality Calculated 290 mOsm/kg (285-295); Potassium 4.2 mmol/L (3.5-5.1); Sodium 140 mmol/L (136-145); Total Bilirubin 0.2 mg/dL (0.15-1.2); Total Protein 6.5 g/dL (6.6-8.7)
[2023-03-04 20:14] LABS: Troponin 5 2HR Delta 0 ABS# (0-10)
[2023-03-04 21:09] VITALS: BP 128/86; PULSE 77; RESP 15; TEMP 36.7; O2SAT 100
== END 2023-03-04 21:10 | disposition home or self-care (01) ==
PROVIDERS: Emergency Provider Emergency Medicine; PCP Nurse Practitioner Family
DX: R07.89 Other chest pain (principal); I20.8 Other forms of angina pectoris; Z79.82 Long term (current) use of aspirin; Z85.3 Personal history of malignant neoplasm of breast; E78.5 Hyperlipidemia, unspecified; I10 Essential (primary) hypertension; Z95.0 Presence of cardiac pacemaker; E11.9 Type 2 diabetes mellitus without complications
CPT/HCPCS: 71045; 80053; 83880; 84484; 85025; 93005; 99285; J7030

== ENCOUNTER 2023-03-19 15:00 | Emergency (ER) | payer MEDICAID, SELFPAY ==
[2023-03-19 15:01] VITALS: BP 165/85; PULSE 76; RESP 17; TEMP 36.6; O2SAT 100; BMI 29.2
--- NOTE | 2023-03-19 15:10 | ED_ITS ---
HPI - Dental/Oral General: Chief complaint: Dental/Oral Stated complaint: Left side jaw pain Time Seen by Provider: 03/19/23 15:02 Source: patient Mode of arrival: ambulatory Limitations: no limitations History of Present Illness: 57-year-old female presents to the ER today for left jaw pain for the last week. Patient reports week and a half ago she had some on the right side however for the last week it has been in the left side. She thought maybe it was her ear bothering her and she has been known to have cerumen impaction so she started using Debrox drops. Patient reports she has cleaned her ear out and is not getting thing out of it. The pain has persisted. She reports it bothers her sometimes to eat and chew. Patient denies any dental pain as she does not have any teeth. 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 Review of Systems General: Reports: 10 or more systems reviewed and unremarkable except in HPI and below PFSH ED PFSH: Medical History Allergic rhinitis Anxiety and depression B12 deficiency Bradycardia delivery delivered Chronic diarrhea History of breast cancer Hyperlipidemia Hypertension Nausea vomiting and diarrhea Pacemaker Psychiatric care Type 2 diabetes mellitus Vitamin D deficiency Surgical History Gastric bypass status for obesity H/O bilateral mastectomy History of appendectomy History of partial hysterectomy Family History Mother COPD with asthma Pacemaker Hypertension Hyperlipidemia Lung disease Colitis Anxiety and depression Brother Anxiety and depression Diabetes Psychiatric illness schizophrenia Father Liver cirrhosis Cancer Social History Smoking and tobacco status: never smoked Second hand smoke exposure: No Alcohol intake: never Substance/Drug Use: never Household members: spouse and children Marital status: Current occupational status: disabled Current gender identity: Female Special christopher needs: No Agree to transfusion: Yes Physical Exam Const: COMMON NORMALS: no acute distress, average body habitus, patient oriented x3, no limitations, healthy appearing, alert and well nourished HENMT: COMMON NORMALS: normocephalic, atraumatic, external ears normal, TM's normal bilaterally, Normal external nose present, Normal nasal mucous membranes and turbinates present, moist oral mucous membranes and oropharynx normal; dentition not normal (Edentulous, TMJ clicks) HEAD & SCALP: normocephalic and atraumatic NOSE: Normal external nose present and Normal nasal mucous membranes and turbinates present EXTERNAL EAR: Yes external ears normal TYMPANIC MEMBRANE: TM's normal bilaterally Eye: COMMON NORMALS: conjunctivae normal CONJUNCTIVA: Yes conjunctivae normal Neck/C-Spine: COMMON NORMALS: full ROM and no lymphadenopathy Resp: COMMON NORMALS: normal respiratory effort, No retractions and clear to auscultation bilaterally AUSCULTATION: clear to auscultation bilaterally Cardio: COMMON NORMALS: regular rate, regular rhythm and No murmurs present (Cardio) RATE: regular rate RHYTHM: regular rhythm Extremity: COMMON NORMALS: normal to inspection and full ROM Neuro: COMMON NORMALS: patient oriented x3 SENSORIUM/ORIENTATION: Yes alert Psych: COMMON NORMALS: mental status grossly normal, Normal thought process present and cooperative THOUGHT PROCESS: Normal thought process present Skin: COMMON NORMALS: no rashes or lesions noted and no wounds GENERAL SKIN EXAM: no rashes or lesions noted Course ED course: Patient presents to the ER for left-sided jaw pain for the last week and a half. Patient is edentulous but has a history of cerumen impactions. Patient's ear exam is normal. There is minimal cerumen noted on exam. Patient does have some TMJ clicking so I suspect this is more of a TMJ disorder. No imaging or lab work is necessary. Vital Signs: Vital signs: Vital Signs Temperature 98 F 03/19/23 15:01 Pulse Rate 76 03/19/23 15:01 Respiratory Rate 17 03/19/23 15:01 Blood Pressure 165/85 03/19/23 15:01 Pulse Oximetry 100 03/19/23 15:01 Oxygen Delivery Me thod Room Air 03/19/23 15:01 MDM - Dental/Oral Medical Decision Making Probable TMJ disorder. Recommended anti-inflammatories for symptomatic relief. May try warm moist heat. Avoid chewy foods or gum. Recommend patient discuss symptoms with PCP in 1 week if no improvement. Would possibly benefit from muscle relaxer or sleep aid if that is the problem. Patient is under increased stress. I have no concerns that this is dental related as patient is edentulous. Return to the ER with any new or worsening symptoms. Patient verbalized understanding and was in agreement with the treatment plan. Critical Care Time Critical Care Time: Critical Care Time: No Discharge Plan Discharge Patient Disposition: Home Clinical Impression: TMJ inflammation Condition: Stable Prescriptions: No Action metoprolol succinate 25 mg tablet extended release 24 hr 25 mg PO BID Qty: 180 0RF levocetirizine 5 mg tablet 5 mg PO DAILY Qty: 90 0RF ergocalciferol (vitamin D2) 1,250 mcg (50,000 unit) capsule 1,250 mcg PO .weekly Qty: 12 1RF venlafaxine [Effexor XR] 150 mg capsule,extended release 24hr 150 mg PO DAILY Qty: 30 2RF mirtazapine 15 mg tablet 15 mg PO BEDTIME Qty: 30 2RF loperamide 2 mg capsule 2 mg PO TID PRN (Reason: Diarrhea) aspirin [Adult Low Dose Aspirin] 81 mg tablet,delayed release (DR/EC) 81 mg PO DAILY diclofenac sodium 75 mg tablet,delayed release (DR/EC) 75 mg PO BID PRN (Reason: pain) Qty: 60 2RF (DME) BD Luer-Kennedy Syringe 3 mL 25 gauge x 1 syringe See Rx Instructions .ROUTE .COMPLEX Qty: 4 2RF Dose Instruction: USE DIRECTED Rx Instructions: USE DIRECTED cyanocobalamin (vitamin B-12) 1,000 mcg/mL solution See Rx Instructions .ROUTE .COMPLEX Qty: 1 2RF Dose Instruction: INJECT 1 ML (CC) INTRAMUSCULARLY ONCE A WEEK Rx Instructions: INJECT 1 ML (CC) INTRAMUSCULARLY ONCE A month rosuvastatin 40 mg tablet 40 mg PO DAILY Qty: 30 2RF Vitamin D3 50 mcg (2,000 unit) Capsule 50 mcg PO DAILY Discharge Orders: Discharge ED (Routine); Ordered 03/19/23 Ordered By: Lorri Milton Referrals: Ana M Putnam FNP [Primary Care Provider] - Discharge Diet: Usual diet Discharge Activity: Resume usual activity Patient Instructions: Opioid Safety, Pain Management Activity Restrictions/Additional Instructions: Take ibuprofen or Aleve as discussed. Warm heat recommended. Follow-up with PCP in 1 week if symptoms not improving. Return to the ER with new or worsening symptoms. 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
== END 2023-03-19 15:20 | disposition home or self-care (01) ==
PROVIDERS: Emergency Provider Physician Assistant; PCP Nurse Practitioner Family
DX: M26.69 Other specified disorders of temporomandibular joint (principal); Z79.82 Long term (current) use of aspirin; Z85.3 Personal history of malignant neoplasm of breast; E78.5 Hyperlipidemia, unspecified; I10 Essential (primary) hypertension; Z95.0 Presence of cardiac pacemaker; E11.9 Type 2 diabetes mellitus without complications
CPT/HCPCS: 99282

== ENCOUNTER → 2023-03-21 14:28 | Outpatient (BNVA) | payer MEDICAID, SELFPAY | PROVIDERS: PCP Nurse Practitioner Family; Visit Provider Nurse Practitioner Family | DX: R39.9 Unspecified symptoms and signs involving the genitourinary system (principal) | CPT/HCPCS: 81003 ==

== ENCOUNTER → 2023-05-05 11:03 | Outpatient (BNVA) | payer MEDICAID, SELFPAY | PROVIDERS: PCP Nurse Practitioner Family; Visit Provider Nurse Practitioner Family | DX: E53.8 Deficiency of other specified B group vitamins (principal); E11.9 Type 2 diabetes mellitus without complications; E55.9 Vitamin D deficiency, unspecified | CPT/HCPCS: 80053; 80061; 82306; 82607; 83036; 84443; 85025 ==

== ENCOUNTER 2023-05-13 02:17 | Emergency (ER) | payer MEDICAID, SELFPAY ==
[2023-05-13 02:25] VITALS: BP 158/98; PULSE 85; RESP 16; TEMP 36.4; O2SAT 100; BMI 27.8
--- NOTE | 2023-05-13 03:05 | ED_ITS ---
HPI - Ear Problem General: Chief complaint: Ear Stated complaint: ear pain Time Seen by Provider: 05/13/23 02:28 Source: patient History of Present Illness: 57-year-old female who presents with left greater than right-sided ear pain. She states that the pain was bad enough, that it was making her nauseated and dizzy when she was at the store earlier. No ringing. No hearing loss. No fever, no discharge. No cough or congestion. MD Complaint: ear pain Location: bilateral Duration: intermittent Relieving factors: nothing Exacerbating factors: position of head Context: other Discharge from ear: no Associated symptoms: Reports ear or mastoid pain; Denies external ear pain, fever(s), headache(s), hearing loss, neck pain, rhinorrhea or tinnitus Treatment prior to arrival: none Review of Systems Const: Denies: fever(s) ENMT: Reports: ear or mastoid pain; Denies: tinnitus Card: Denies: chest pain Resp: Denies: dyspnea, productive cough or non-productive cough GI: Reports: nausea; Denies: abdominal pain or vomiting Musc: Denies: neck pain Neuro: Reports: dizziness; Denies: headache(s) or vertigo PFS ED PFSH: Medical History Allergic rhinitis Anxiety and depression B12 deficiency Bradycardia delivery delivered Chronic diarrhea History of breast cancer Hyperlipidemia Hypertension Nausea vomiting and diarrhea Pacemaker Psychiatric care Type 2 diabetes mellitus Vitamin D deficiency Surgical History Gastric bypass status for obesity H/O bilateral mastectomy History of appendectomy History of cholecystectomy History of partial hysterectomy Family History Mother COPD with asthma Pacemaker Hypertension Hyperlipidemia Lung disease Colitis Anxiety and depression Brother Anxiety and depression Diabetes Psychiatric illness schizophrenia Father Liver cirrhosis Cancer Social History Smoking and tobacco status: never smoked Second hand smoke exposure: No Alcohol intake: never Substance/Drug Use: never Household members: spouse and children Marital status: Current occupational status: disabled Current gender identity: Female Special christopher needs: No Agree to transfusion: Yes Physical Exam Const: COMMON NORMALS: no acute distress GENERAL APPEARANCE: cooperative; not ill appearing and not frail appearing HENMT: COMMON NORMALS: normocephalic, atraumatic and Normal external nose present HEAD & SCALP: normocephalic and atraumatic FACE & SINUS: normal facial exam and face symmetric NOSE: Normal external nose present EXTERNAL AUDITORY CANAL: Abnormal EAC present EAC laterality: left Details: edema, EAC tenderness, otic discharge and other (likely cholesteatoma ) Eye: COMMON NORMALS: Equal, round and reactive pupils present and EOMs intact bilaterally PUPIL: Yes Equal, round and reactive pupils present Neck/C-Spine: GENERAL: Yes trachea midline Chest: CHEST: Yes Symmetrical chest wall rise Resp: COMMON NORMALS: normal respiratory effort, No retractions, No use of accessory muscles and clear to auscultation bilaterally AUSCULTATION: clear to auscultation bilaterally Cardio: COMMON NORMALS: regular rate and regular rhythm RATE: regular rate RHYTHM: regular rhythm GI: COMMON NORMALS: Normal to inspection, nondistended, normoactive bowel sounds present Extremity: COMMON NORMALS: no pedal edema Neuro: KETURAH COMA SCALE: document GCS findings Keturah coma scale eye opening: Spontaneous [place] coma scale verbal response: Orientated [place] coma scale motor response: Obey commands [place] coma scale total score: 15 SENSORY EXAM: Yes extremities (intact) Psych: COMMON NORMALS: speech normal SPEECH: Yes normal speech Skin: COMMON NORMALS: no rashes or lesions noted GENERAL SKIN EXAM: no rashes or lesions noted Course Vital Signs: Vital signs: Vital Signs Temperature 97.5 F L 05/13/23 02:25 Pulse Rate 85 05/13/23 02:25 Respiratory Rate 16 05/13/23 02:25 Blood Pressure 158/98 05/13/23 02:25 Pulse Oximetry 100 05/13/23 02:25 Oxygen Delivery Me thod Room Air 05/13/23 02:25 MDM - Ear Medical Decision Making otitis externa vs more likely cholesteatoma in a symptomatic individual. close outpt fu with ENT Discharge Plan Discharge Patient Disposition: Home Clinical Impression: Otitis externa Condition: Stable Prescriptions: No Action ergocalciferol (vitamin D2) 1,250 mcg (50,000 unit) capsule 1,250 mcg PO .weekly Qty: 12 1RF loperamide 2 mg capsule 2 mg PO TID PRN (Reason: Diarrhea) venlafaxine 150 mg capsule,extended release 24hr 300 mg PO DAILY Qty: 60 2RF mirtazapine 15 mg tablet 15 mg PO BEDTIME Qty: 30 2RF rosuvastatin 40 mg tablet 40 mg PO DAILY Qty: 30 5RF fexofenadine [Marly Allergy] 180 mg tablet 180 mg PO DAILY Qty: 30 5RF diclofenac sodium 75 mg tablet,delayed release (DR/EC) 75 mg PO BID PRN (Reason: pain) Qty: 60 5RF methylprednisolone [Medrol (Edward)] 4 mg tablets,dose pack See Rx Instructions PO PER PKG DIR Qty: 21 0RF Rx Instructions: PO PER PKG DIR (DME) BD Luer-Kennedy Syringe 3 mL 25 gauge x 1 syringe See Rx Instructions .ROUTE .COMPLEX Qty: 4 2RF Dose Instruction: USE DIRECTED Rx Instructions: USE DIRECTED cyanocobalamin (vitamin B-12) 1,000 mcg/mL solution See Rx Instructions .ROUTE .COMPLEX Qty: 1 2RF Dose Instruction: INJECT 1 ML ONCE EVERY MONTH Rx Instructions: INJECT 1 ML ONCE EVERY MONTH Vitamin D3 50 mcg (2,000 unit) Capsule 50 mcg PO DAILY Discharge Orders: Discharge ED (Routine); Ordered 05/13/23 Ordered By: Cordell Restrepo Referrals: Hema Tripp MD [Physician] - 4-7 days Ana M Putnam FNP [Primary Care Provider] - Patient Instructions: Otitis Externa - Adult, Opioid Safety, Pain Management Activity Restrictions/Additional Instructions: Case management will call you regarding a follow-up appointment with ENT surgery. Drops as directed. Use them, 4 drops to the ear twice daily until they are gone. Return for any concerning symptoms. 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
--- NOTE | 2023-05-15 08:30 | DCPLANNER ---
Addendum entered by Anisa Sena 06/02/23 09:55: Patient had an appointment with ENT - this appointment was rescheduled Addendum entered by Anisa Sena 05/17/23 13:50: Patient has a follow up appointment scheduled for Monday, , 2022 at 3:[address] Tripp at ENT. Original Note: workforce investment act career manager had message to schedule a follow up appointment for patient with ENT. workforce investment act career manager sent patients information to the front office staff at ENT. Patients information will be printed and reviewed. Clinic will call patient with appointment information.
== END 2023-05-13 04:14 | disposition home or self-care (01) ==
PROVIDERS: Emergency Provider Emergency Medicine; PCP Nurse Practitioner Family
DX: H60.90 Unspecified otitis externa, unspecified ear (principal); Z85.3 Personal history of malignant neoplasm of breast; E78.5 Hyperlipidemia, unspecified; I10 Essential (primary) hypertension; E11.9 Type 2 diabetes mellitus without complications
CPT/HCPCS: 99283

== ENCOUNTER 2023-05-29 13:23 | Emergency (ER) | payer MEDICAID, SELFPAY ==
[2023-05-29 14:21] LABS: Basophils % 0.3 %; Eosinophils # 0.1 10^3/uL (0.0-0.8); Eosinophils % 1.2 %; Hematocrit 35.2 % (37.0-47.0); Hemoglobin 11.7 g/dL (11.5-15.3); Lymphocytes # 1.5 10^3/uL (0.8-4.8); Lymphocytes % 24.2 %; Mean Corpuscular HGB Conc 33.2 g/dL (30.0-36.0); Mean Corpuscular Hemoglobin 30.2 pg (28.0-34.0); Mean Corpuscular Volume 90.7 fl (81-99); Mean Platelet Volume 10.2 fL (7.4-10.4); Monocytes # 0.5 10^3/uL (0.2-0.9); Monocytes % 7.6 %; Neutrophils # 4.06 10^3/uL (1.8-7.7); Neutrophils % 66.7 %; Nucleated Red Blood Cells % 0 %; Platelet Count 166 10^3/cmm (130-400); Red Blood Count 3.88 10^6/uL (4.1-5.3); White Blood Count 6.1 10^3/uL (4.0-10.0)
[2023-05-29 14:44] VITALS: BP 136/82; PULSE 81; RESP 16; TEMP 36.4; O2SAT 98; BMI 28.7
[2023-05-29 14:54] LABS: Alanine Aminotransferase 7 U/L (0-33); Albumin Level 4.2 g/dL (3.5-5.2); Alkaline Phosphatase 82 U/L (35-105); Anion Gap 16.5 (5-19); Aspartate Amino Transferase 13 U/L (0-32); Blood Urea Nitrogen 9 mg/dL (6-20); Calcium 9.2 mg/dL (8.5-10.5); Carbon Dioxide 24 mmol/L (22-29); Chloride 101 mmol/L (98-107); Globulin 2.5 g/dL (1.3-4.6); Glomerular Filtration Rate 103.8 mL/min (90-130); Glucose 135 mg/dL (65-115); Lipase 15 U/L (13-60); Osmolality Calculated 287 mOsm/kg (285-295); Potassium 3.5 mmol/L (3.5-5.1); Sodium 138 mmol/L (136-145); Total Bilirubin 0.4 mg/dL (0.15-1.2); Total Protein 6.7 g/dL (6.6-8.7)
--- NOTE | 2023-05-29 16:54 | XRR_ITS ---
PROCEDURE INFORMATION: Exam: XR Abdomen Exam date and time: 05/29/2023 4:59 PM Age: 57 years old Clinical indication: Bloating; Abdominal pain; Additional info: Abd pain, diarrhea, bloating TECHNIQUE: Imaging protocol: Radiologic exam of the abdomen. Views: Frontal supine view of the abdomen. 1 View. COMPARISON: CR XR KUB portable [id number] 07/09/2022 1:42 PM FINDINGS: Tubes, catheters and devices: Gastroesophageal junction region reflux management banding device seen. Gastrointestinal tract: Normal. No bowel dilation. Bones/joints: Unremarkable. XR/XR abdomen 1V* [id number] IMPRESSION: 1. Negative for bowel dilation or air-fluid levels to indicate obstruction. 2. Gastroesophageal junction region reflux management banding device seen.
--- NOTE | 2023-05-29 16:56 | ED_ITS ---
HPI - Abdominal Pain General: Chief Complaint: Abdominal Pain Stated Complaint: diareah, stomach pain Time Seen by Provider: 05/29/23 16:39 History of Present Illness: Presents to the ER with generalized abdominal pain diarrhea and bloating. Denies any fever chills or overt sickness. Patient is the only 1 in a household feeling this way. Patient does not get this way very often. It does not radiate it does not migrate there are no worsening or relieving factors noted. Review of Systems General: Reports: 10 or more systems reviewed and unremarkable except in HPI and below PFSH ED PFSH: Medical History Allergic rhinitis Anxiety and depression B12 deficiency Bradycardia delivery delivered Chronic diarrhea History of breast cancer Hyperlipidemia Hypertension Nausea vomiting and diarrhea Pacemaker Psychiatric care Type 2 diabetes mellitus Vitamin D deficiency Surgical History Gastric bypass status for obesity H/O bilateral mastectomy History of appendectomy History of cholecystectomy History of partial hysterectomy Family History Mother COPD with asthma Pacemaker Hypertension Hyperlipidemia Lung disease Colitis Anxiety and depression Brother Anxiety and depression Diabetes Psychiatric illness schizophrenia Father Liver cirrhosis Cancer Social History Smoking and tobacco status: never smoked Second hand smoke exposure: No Alcohol intake: never Substance/Drug Use: never Household members: spouse and children Marital status: Current occupational status: disabled Current gender identity: Female Special christopher needs: No Agree to transfusion: Yes Physical Exam Const: COMMON NORMALS: no acute distress, average body habitus, patient oriented x3, no limitations, healthy appearing, alert and well nourished HENMT: COMMON NORMALS: normocephalic, atraumatic, hearing grossly normal bilaterally, external ears normal, Normal external nose present and moist oral mucous membranes HEAD & SCALP: normocephalic and atraumatic NOSE: Normal external nose present EXTERNAL EAR: Yes external ears normal Eye: COMMON NORMALS: Equal, round and reactive pupils present, EOMs intact bilaterally, conjunctivae normal and no scleral icterus CONJUNCTIVA: Yes conjunctivae normal PUPIL: Yes Equal, round and reactive pupils present Neck/C-Spine: COMMON NORMALS: no JVD Chest: COMMONS NORMALS: normal inspection of the chest and normal palpation of entire chest wall Resp: COMMON NORMALS: normal respiratory effort, No retractions, No use of accessory muscles and clear to auscultation bilaterally AUSCULTATION: clear to auscultation bilaterally Cardio: COMMON NORMALS: no JVD, regular rate, regular rhythm, S1 normal heart sound present, S2 normal heart sound present, No gallops present (Cardio), No clicks present (Cardio), No murmurs present (Cardio) and No rub (Cardio) RATE: regular rate RHYTHM: regular rhythm HEART SOUNDS: S1 normal heart sound present and S2 normal heart sound present GI: COMMON NORMALS: Normal to inspection, nondistended, normoactive bowel sounds present, Soft to palpation, non-tender, No hepatosplenomegaly present and no masses PALPATION: Yes Soft to palpation and Yes No hepatosplenomegaly present : COMMON NORMALS: Yes no CVA tenderness BLADDER/KIDNEY EXAM: Yes no CVA tenderness Back/Pelvis: COMMON NORMALS: no CVA tenderness Neuro: COMMON NORMALS: patient oriented x3 SENSORIUM/ORIENTATION: Yes alert Course Vital Signs: Vital signs: Vital Signs Temperature 97.6 F 05/29/23 14:44 Pulse Rate 81 05/29/23 14:44 Respiratory Rate 18 05/29/23 17:53 Blood Pressure 136/98 05/29/23 17:53 Pulse Oximetry 100 05/29/23 17:53 Oxygen Delivery Me thod Room Air 05/29/23 14:44 MDM - Abdominal Pain Medical Decision Making Presents ER with generalized abdominal pain, bloating, diarrhea for the last 4 days. Physical exam was performed lab work was obtained which was essentially negative other than a urinary tract infection. Patient will be given Cipro here in ER and discharged with a prescription for Cipro to take on an outpatient basis. Patient is to follow-up with her PCP in approximately 7 days or as needed. Differential Diagnosis Likely abdominal pain and gastroenteritis; Unlikely acute appendicitis, calculus of kidney, constipation, diverticulitis, endometriosis, pancreatitis or small bowel obstruction Medical Records I reviewed the patient's medical records. Lab Data I reviewed the patient's lab results. 05/29/23 13:59 05/29/23 13:59 Labs/Radiology: Radiology Impressions Abdomen X-Ray 05/29/23 16:54 IMPRESSION: 1. Negative for bowel dilation or air-fluid levels to indicate obstruction. 2. Gastroesophageal junction region reflux management banding device seen. Laboratory Results WBC 6.1 10^3/uL (4.0-10.0) 05/29/23 13:59 RBC 3.88 10^6/uL (4.1-5.3) L 05/29/23 13:59 Hgb 11.7 g/dL (11.5-15.3) 05/29/23 13:59 Hct 35.2 % (37.0-47.0) L 05/29/23 13:59 MCV 90.7 fl (81-99) 05/29/23 13:59 MCH 30.2 pg (28.0-34.0) 05/29/23 13:59 MCHC 33.2 g/dL (30.0-36.0) 05/29/23 13:59 RDW 12.0 % (12.1-15.1) L 05/29/23 13:59 Plt Count 166 10^3/cmm (130-400) 05/29/23 13:59 MPV 10.2 fL (7.4-10.4) 05/29/23 13:59 Neut % (Auto) 66.7 % 05/29/23 13:59 Lymph % (Auto) 24.2 % 05/29/23 13:59 [place] % (Auto) 7.6 % 05/29/23 13:59 Eos % (Auto) 1.2 % 05/29/23 13:59 Baso % (Auto) 0.3 % 05/29/23 13:59 Neut # (Auto) 4.06 10^3/uL (1.8-7.7) 05/29/23 13:59 Lymph # (Auto) 1.5 10^3/uL (0.8-4.8) 05/29/23 13:59 [place] # (Auto) 0.5 10^3/uL (0.2-0.9) 05/29/23 13:59 Eos # (Auto) 0.1 10^3/uL (0.0-0.8) 05/29/23 13:59 Baso # (Auto) 0.0 10^3/uL (0.0-0.1) 05/29/23 13:59 Nucleated RBC % (auto) 0 % 05/29/23 13:59 Nucleated RBCs # 0.0 /100WBC 05/29/23 13:59 Sodium 138 mmol/L (136-145) 05/29/23 13:59 Potassium 3.5 mmol/L (3.5-5.1) 05/29/23 13:59 Chloride 101 mmol/L (98-107) 05/29/23 13:59 Carbon Dioxide 24 mmol/L (22-29) 05/29/23 13:59 Anion Gap 16.5 (5-19) 05/29/23 13:59 BUN 9 mg/dL (6-20) 05/29/23 13:59 Creatinine 0.6 mg/dL (0.5-0.9) 05/29/23 13:59 GFR Calculation 103.8 mL/min (90-130) 05/29/23 13:59 Glucose 135 mg/dL (65-115) H 05/29/23 13:59 Calculated Osmolality 287 mOsm/kg (285-295) 05/29/23 13:59 Calcium 9.2 mg/dL (8.5-10.5) 05/29/23 13:59 Total Bilirubin 0.4 mg/dL (0.15-1.2) 05/29/23 13:59 AST 13 U/L (0-32) 05/29/23 13:59 ALT 7 U/L (0-33) 05/29/23 13:59 Alkaline Phosphatase 82 U/L (35-105) 05/29/23 13:59 Total Protein 6.7 g/dL (6.6-8.7) 05/29/23 13:59 Albumin 4.2 g/dL (3.5-5.2) 05/29/23 13:59 Globulin 2.5 g/dL (1.3-4.6) 05/29/23 13:59 Lipase 15 U/L (13-60) 05/29/23 13:59 Urine Color Yellow (Yellow) 05/29/23 18:08 Urine Appearance Cloudy (CLEAR) A 05/29/23 18:08 Urine pH 5 (5-7) 05/29/23 18:08 Ur Specific [place] 1.030 (1.005-1.030) 05/29/23 18:08 Urine Protein 1+ (Negative) H 05/29/23 18:08 Urine Glucose (UA) Norm (Normal) 05/29/23 18:08 Urine Ketones 1+ (Negative) H 05/29/23 18:08 Urine Blood Trace (Negative) H 05/29/23 18:08 Urine Nitrate Negative (Negative) 05/29/23 18:08 Urine Bilirubin 1+ (Negative) H 05/29/23 18:08 Urine Urobilinogen Norm mg/dL (Negative) 05/29/23 18:08 Ur Leukocyte Esterase 1+ (Negative) H 05/29/23 18:08 Urine RBC 0-4 /hpf (0-2) H 05/29/23 18:08 Urine WBC 0-4 /hpf (0-5) H 05/29/23 18:08 Ur Squamous Epith Cells 0-4 /hpf (0-5) H 05/29/23 18:08 Other Crystals Amm biurate /hpf 05/29/23 18:08 Amorphous Sediment 4+ /hpf 05/29/23 18:08 Urine Bacteria Trace /hpf (NONE) 05/29/23 18:08 Discharge Plan Discharge Patient Disposition: Home Clinical Impression: Urinary tract infection Qualifiers: Urinary tract infection type: acute cystitis Hematuria presence: with hematuria Qualified Code(s): N30.01 - Acute cystitis with hematuria Abdominal pain Qualifiers: Abdominal location: generalized Qualified Code(s): R10.84 - Generalized abdominal pain Diarrhea Qualifiers: Diarrhea type: unspecified type Qualified Code(s): R19.7 - Diarrhea, unspecified Condition: Stable Prescriptions: New ciprofloxacin HCl 500 mg tablet 500 mg PO BID Qty: 20 0RF No Action ergocalciferol (vitamin D2) 1,250 mcg (50,000 unit) capsule 1,250 mcg PO .weekly Qty: 12 1RF loperamide 2 mg capsule 2 mg PO TID PRN (Reason: Diarrhea) venlafaxine 150 mg capsule,extended release 24hr 300 mg PO DAILY Qty: 60 2RF mirtazapine 15 mg tablet 15 mg PO BEDTIME Qty: 30 2RF rosuvastatin 40 mg tablet 40 mg PO DAILY Qty: 30 5RF fexofenadine [Marly Allergy] 180 mg tablet 180 mg PO DAILY Qty: 30 5RF diclofenac sodium 75 mg tablet,delayed release (DR/EC) 75 mg PO BID PRN (Reason: pain) Qty: 60 5RF methylprednisolone [Medrol (Edward)] 4 mg tablets,dose pack See Rx Instructions PO PER PKG DIR Qty: 21 0RF Rx Instructions: PO PER PKG DIR (DME) BD Luer-Kennedy Syringe 3 mL 25 gauge x 1 syringe See Rx Instructions .ROUTE .COMPLEX Qty: 4 2RF Dose Instruction: USE DIRECTED Rx Instructions: USE DIRECTED cyanocobalamin (vitamin B-12) 1,000 mcg/mL solution See Rx Instructions .ROUTE .COMPLEX Qty: 1 2RF Dose Instruction: INJECT 1 ML ONCE EVERY MONTH Rx Instructions: INJECT 1 ML ONCE EVERY MONTH Vitamin D3 50 mcg (2,000 unit) Capsule 50 mcg PO DAILY Discharge Orders: Discharge ED (Routine); Ordered 05/29/23 Ordered By: Tavo Vital Referrals: Ana M Putnam FNP [Primary Care Provider] - Patient Instructions: Acute Diarrhea (ED), Abdominal Pain (ED), Urinary Tract Infection - Women Coding Level of Care Code ED Funeral Pre Need Consultant for Cristian Stovall
[2023-05-29] MEDS: sodium chloride 0.9% 1,000 ML 999 ML IV (17:12)
[2023-05-29 17:53] VITALS: BP 136/98; RESP 18; O2SAT 100
[2023-05-29 18:21] LABS: Add Urine Culture? No; Add Urine Microscopic? YES; Amorphous Sediment Urine 4+ /hpf; Bacteria Urine TRACE /hpf; Bilirubin Urine 1+ (Negative); Blood Urine Trace (Negative); Glucose Urine UA Norm (Normal); Ketones Urine 1+ (Negative); Leukocyte Esterase Urine 1+ (Negative); Nitrate Urine Negative (Negative); Other Crystals Urine AMM BIURATE /hpf; Protein Urine 1+ (Negative); RBC Urine 0-4 /hpf (0-2); Squamous Epithelial Cell Urine 0-4 /hpf (0-5); Urine Appearance Cloudy (CLEAR); Urine Color Yellow (Yellow); Urobilinogen Urine Norm (Negative); WBC Urine 0-4 /hpf (0-5); pH Urine 5 (5-7)
[2023-05-29] MEDS: ciprofloxacin 500 mg Tablet PO (19:01)
== END 2023-05-29 19:08 | disposition home or self-care (01) ==
PROVIDERS: Physician Assistant; Emergency Provider Emergency Medicine; PCP Nurse Practitioner Family
DX: N30.01 Acute cystitis with hematuria (principal); R10.84 Generalized abdominal pain; R19.7 Diarrhea, unspecified; Z85.3 Personal history of malignant neoplasm of breast; E78.5 Hyperlipidemia, unspecified; I10 Essential (primary) hypertension; E11.9 Type 2 diabetes mellitus without complications; Z95.0 Presence of cardiac pacemaker
CPT/HCPCS: 36415; 74018; 80053; 81001; 83690; 85025; 96360; 96361; 99284; J7030

== ENCOUNTER 2023-06-03 21:01 | Emergency (ER) | payer MEDICAID, SELFPAY ==
--- NOTE | 2023-06-03 21:02 | XRR_ITS ---
PROCEDURE INFORMATION: Exam: XR Chest Exam date and time: 06/03/2023 9:34 PM Age: 57 years old Clinical indication: Pain; Chest pressure; Additional info: Cp TECHNIQUE: Imaging protocol: Radiologic exam of the chest. Views: 1 view. COMPARISON: CR XR chest 1V portable [id number] 03/04/2023 5:31 PM FINDINGS: Tubes, catheters and devices: Stable left pacemaker. Continued previous lap band surgery. Lungs: Unremarkable. No consolidation. Pleural spaces: Unremarkable. No pleural effusion. No pneumothorax. Heart/Mediastinum: Unremarkable. No cardiomegaly. Bones/joints: Unremarkable. XR/XR chest 1V portable [id number] IMPRESSION: 1. Stable left pacemaker. 2. Continued previous lap band surgery.
[2023-06-03 21:08] VITALS: BP 133/80; PULSE 79; RESP 16; TEMP 36.6; O2SAT 99
[2023-06-03 21:12] VITALS: BP 125/88; PULSE 70; RESP 16; O2SAT 98
--- NOTE | 2023-06-03 21:17 | ECG_ITS ---
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 Measurements Intervals [place] Rate: 74 P: 243 NM: 149 QRS: 7 QRSD: 85 T: 45 QT: 360 QTc: 400 Interpretive Statements ELECTRONIC ATRIAL PACEMAKER LOW QRS VOLTAGE IN PRECORDIAL LEADS [QRS DEFLECTION < 1.0 mV IN CHEST LEADS] ABNORMAL RHYTHM ECG Compared to ECG 03/04/2023 16:49:20 T-wave abnormality no longer present Electronically Signed On 06-04-2023 19:43:40 CDT by Cruz Martinez M.D. [id number]
[2023-06-03 21:41] LABS: Basophils % 0.4 %; Eosinophils # 0.2 10^3/uL (0.0-0.8); Eosinophils % 2.5 %; Hemoglobin 11.9 g/dL (11.5-15.3); Lymphocytes # 2.6 10^3/uL (0.8-4.8); Lymphocytes % 38.5 %; Mean Corpuscular HGB Conc 33.1 g/dL (30.0-36.0); Mean Corpuscular Hemoglobin 30.4 pg (28.0-34.0); Mean Corpuscular Volume 91.8 fl (81-99); Monocytes # 0.4 10^3/uL (0.2-0.9); Monocytes % 5.6 %; Neutrophils # 3.58 10^3/uL (1.8-7.7); Neutrophils % 52.6 %; Nucleated Red Blood Cells % 0 %; Platelet Count 239 10^3/cmm (130-400); Red Blood Count 3.92 10^6/uL (4.1-5.3); Red Cell Distribution Width 11.9 % (12.1-15.1); White Blood Count 6.8 10^3/uL (4.0-10.0)
[2023-06-03 21:51] LABS: INR 0.96 (0.8-1.2)
[2023-06-03 21:59] LABS: Troponin(5th) Baseline 6 ng/L (0-10)
[2023-06-03 22:10] LABS: Alanine Aminotransferase 7 U/L (0-33); Albumin Level 4.2 g/dL (3.5-5.2); Alkaline Phosphatase 87 U/L (35-105); Anion Gap 13.5 (5-19); Aspartate Amino Transferase 11 U/L (0-32); Blood Urea Nitrogen 9 mg/dL (6-20); Calcium 9.1 mg/dL (8.5-10.5); Carbon Dioxide 28 mmol/L (22-29); Chloride 102 mmol/L (98-107); Globulin 2.3 g/dL (1.3-4.6); Glomerular Filtration Rate 103.8 mL/min (90-130); Glucose 82 mg/dL (65-115); NT Pro B Type Natriuretic Pept 36 pg/mL (0-125); Osmolality Calculated 286 mOsm/kg (285-295); Potassium 4.5 mmol/L (3.5-5.1); Sodium 139 mmol/L (136-145); Total Bilirubin 0.2 mg/dL (0.15-1.2); Total Protein 6.5 g/dL (6.6-8.7)
--- NOTE | 2023-06-03 23:14 | ED_ITS ---
HPI - Chest Pain General: Chief Complaint: Chest Pain Stated Complaint: cp,sob Time Seen by Provider: 06/03/23 22:06 Source: patient Mode of arrival: ambulatory Limitations: no limitations History of Present Illness: 57-year-old female states she has been under a lot of stress lately states she is at her grandkids she has not slept over the last 24 hours and feels extremely stressed out states this morning started having some chest pain she believes is due to the stress that she has been here pain is resolved denies any shortness of breath she has a history of pacemaker denies any nausea or diaphoresis. Associated symptoms: Deny abdominal pain, dyspnea, fever(s), nausea or vomiting Review of Systems Const: Denies: fever(s), chills, body aches or change in appetite ENMT: Denies: throat pain or dental pain Card: Reports: chest pain Resp: Denies: dyspnea GI: Denies: abdominal pain, nausea, vomiting or diarrhea : Denies: dysuria Musc: Denies: neck pain or back pain Skin/Breast: Denies: rash Neuro: Denies: headache(s) PFSH ED PFSH: Medical History Allergic rhinitis Anxiety and depression B12 deficiency Bradycardia delivery delivered Chronic diarrhea History of breast cancer Hyperlipidemia Hypertension Nausea vomiting and diarrhea Pacemaker Psychiatric care Type 2 diabetes mellitus Vitamin D deficiency Surgical History Gastric bypass status for obesity H/O bilateral mastectomy History of appendectomy History of cholecystectomy History of partial hysterectomy Family History Mother COPD with asthma Pacemaker Hypertension Hyperlipidemia Lung disease Colitis Anxiety and depression Brother Anxiety and depression Diabetes Psychiatric illness schizophrenia Father Liver cirrhosis Cancer Social History Smoking and tobacco status: never smoked Second hand smoke exposure: No Alcohol intake: never Substance/Drug Use: never Household members: spouse and children Marital status: Current occupational status: disabled Current gender identity: Female Special christopher needs: No Agree to transfusion: Yes Physical Exam Const: COMMON NORMALS: no acute distress, patient oriented x3 and healthy appearing HENMT: COMMON NORMALS: normocephalic and atraumatic HEAD & SCALP: normocephalic and atraumatic Neck/C-Spine: COMMON NORMALS: full ROM and supple Chest: COMMONS NORMALS: normal inspection of the chest and normal palpation of entire chest wall Resp: COMMON NORMALS: normal respiratory effort, No retractions, No use of accessory muscles and clear to auscultation bilaterally AUSCULTATION: clear to auscultation bilaterally Cardio: COMMON NORMALS: regular rate, regular rhythm and No murmurs present (Cardio) RATE: regular rate RHYTHM: regular rhythm GI: COMMON NORMALS: Normal to inspection, nondistended, normoactive bowel sounds present, Soft to palpation, non-tender and no masses PALPATION: Yes Soft to palpation Extremity: COMMON NORMALS: normal to inspection and full ROM Neuro: COMMON NORMALS: patient oriented x3, moves all extremities and no focal motor deficits Psych: COMMON NORMALS: mental status grossly normal, Normal thought process present and cooperative THOUGHT PROCESS: Normal thought process present Skin: COMMON NORMALS: no rashes or lesions noted and no wounds GENERAL SKIN EXAM: no rashes or lesions noted Course Vital Signs: Vital signs: Vital Signs Temperature 97.8 F 06/03/23 21:08 Pulse Rate 79 06/03/23 21:08 Respiratory Rate 16 06/03/23 21:08 Blood Pressure 133/80 06/03/23 21:08 Pulse Oximetry 99 06/03/23 21:08 Oxygen Delivery Me thod Room Air 06/03/23 21:08 MDM - Chest Pain Medical Decision Making Patient presents here with chest pain is atypical in nature she been pain-free here initial repeat troponins normal no signs of acute coronary syndrome no signs of dissection or pulm embolism she is stable for discharge she is to follow-up with PCP and return if worsening. Medical Records I reviewed the patient's medical records. Lab Data I reviewed the patient's lab results. 06/03/23 21:32 06/03/23 21:32 Radiology Impressions Chest X-Ray 06/03/23 21:02 IMPRESSION: 1. Stable left pacemaker. 2. Continued previous lap band surgery. Laboratory Results WBC 6.8 10^3/uL (4.0-10.0) 06/03/23 21:32 RBC 3.92 10^6/uL (4.1-5.3) L 06/03/23 21:32 Hgb 11.9 g/dL (11.5-15.3) 06/03/23 21: Hct 36.0 % (37.0-47.0) L 06/03/23 21: MCV 91.8 fl (81-99) 06/03/23 21: MCH 30.4 pg (28.0-34.0) 06/03/23 21: MCHC 33.1 g/dL (30.0-36.0) 06/03/23 21: RDW 11.9 % (12.1-15.1) L 06/03/23 21: Plt Count 239 10^3/cmm (130-400) 06/03/23 21: MPV 10.0 fL (7.4-10.4) 06/03/23 21: Neut % (Auto) 52.6 % 06/03/23 21: Lymph % (Auto) 38.5 % 06/03/23 21: [place] % (Auto) 5.6 % 06/03/23 21: Eos % (Auto) 2.5 % 06/03/23 21: Baso % (Auto) 0.4 % 06/03/23 21: Neut # (Auto) 3.58 10^3/uL (1.8-7.7) 06/03/23 21: Lymph # (Auto) 2.6 10^3/uL (0.8-4.8) 06/03/23 21: [place] # (Auto) 0.4 10^3/uL (0.2-0.9) 06/03/23 21: Eos # (Auto) 0.2 10^3/uL (0.0-0.8) 06/03/23 21: Baso # (Auto) 0.0 10^3/uL (0.0-0.1) 06/03/23 21: Nucleated RBC % (auto) 0 % 06/03/23: Nucleated RBCs # 0.0 /100WBC 06/03/23 21: PT 13.10 SECONDS (12.1-14.9) 06/03/23 21: INR 0.96 (0.8-1.2) 06/03/23 21: Sodium 139 mmol/L (136-145) 06/03/23 21:32 Potassium 4.5 mmol/L (3.5-5.1) 06/03/23 21:32 Chloride 102 mmol/L (98-107) 06/03/23 21:32 Carbon Dioxide 28 mmol/L (22-29) 06/03/23 21:32 Anion Gap 13.5 (5-19) 06/03/23 21:32 BUN 9 mg/dL (6-20) 06/03/23 21:32 Creatinine 0.6 mg/dL (0.5-0.9) 06/03/23 21:32 GFR Calculation 103.8 mL/min (90-130) 06/03/23 21:32 Glucose 82 mg/dL (65-115) 06/03/23 21:32 Calculated Osmolality 286 mOsm/kg (285-295) 06/03/23 21:32 Calcium 9.1 mg/dL (8.5-10.5) 06/03/23 21:32 Total Bilirubin 0.2 mg/dL (0.15-1.2) 06/03/23 21:32 AST 11 U/L (0-32) 06/03/23 21:32 ALT 7 U/L (0-33) 06/03/23 21:32 Alkaline Phosphatase 87 U/L (35-105) 06/03/23 21:32 Troponin T Baseline 6 ng/L (0-10) 06/03/23 21:32 Troponin T 120 Minute 6.00 ng/L (0-10) 06/03/23 23:00 NT-Pro-B Natriuret Pep 36 pg/mL (0-125) 06/03/23 21:32 Total Protein 6.5 g/dL (6.6-8.7) L 06/03/23 21:32 Albumin 4.2 g/dL (3.5-5.2) 06/03/23 21:32 Globulin 2.3 g/dL (1.3-4.6) 06/03/23 21:32 EKG Data EKG 1: I personally reviewed and interpreted this EKG as follows: EKG interpretation date: 06/03/23 EKG interpretation time: 21:17 Interpretation: paced hr [address] or t wave abnormalities qrs 85 qtc 387 Discharge Plan Discharge Patient Disposition: Home Clinical Impression: Chest pain Condition: Stable Prescriptions: No Action ergocalciferol (vitamin D2) 1,250 mcg (50,000 unit) capsule 1,250 mcg PO .weekly Qty: 12 1RF loperamide 2 mg capsule 2 mg PO TID PRN (Reason: Diarrhea) venlafaxine 150 mg capsule,extended release 24hr 300 mg PO DAILY Qty: 60 2RF mirtazapine 15 mg tablet 15 mg PO BEDTIME Qty: 30 2RF rosuvastatin 40 mg tablet 40 mg PO DAILY Qty: 30 5RF fexofenadine [Marly Allergy] 180 mg tablet 180 mg PO DAILY Qty: 30 5RF diclofenac sodium 75 mg tablet,delayed release (DR/EC) 75 mg PO BID PRN (Reason: pain) Qty: 60 5RF methylprednisolone [Medrol (Edward)] 4 mg tablets,dose pack See Rx Instructions PO PER PKG DIR Qty: 21 0RF Rx Instructions: PO PER PKG DIR (DME) BD Luer-Kennedy Syringe 3 mL 25 gauge x 1 syringe See Rx Instructions .ROUTE .COMPLEX Qty: 4 2RF Dose Instruction: USE DIRECTED Rx Instructions: USE DIRECTED cyanocobalamin (vitamin B-12) 1,000 mcg/mL solution See Rx Instructions .ROUTE .COMPLEX Qty: 1 2RF Dose Instruction: INJECT 1 ML ONCE EVERY MONTH Rx Instructions: INJECT 1 ML ONCE EVERY MONTH Vitamin D3 50 mcg (2,000 unit) Capsule 50 mcg PO DAILY ciprofloxacin HCl 500 mg tablet 500 mg PO BID Qty: 20 0RF Discharge Orders: Discharge ED (Routine); Ordered 06/04/23 Ordered By: Derrick Mobley Referrals: Ana M Putnam FNP [Primary Care Provider] - 1-3 days Discharge Diet: Advance as tolerated Discharge Activity: Resume usual activity Patient Instructions: Chest Pain (ED) Coding Level of Care Code ED Diesel Engine Specialist for Cristian Stovall
[2023-06-04 00:13] LABS: Troponin 5 2HR Delta 0 ABS# (0-10)
[2023-06-04 00:24] VITALS: BP 152/93; PULSE 65; RESP 18; O2SAT 98
== END 2023-06-04 00:25 | disposition home or self-care (01) ==
PROVIDERS: Emergency Provider Emergency Medicine; PCP Nurse Practitioner Family
DX: R07.9 Chest pain, unspecified (principal); Z95.0 Presence of cardiac pacemaker; Z85.3 Personal history of malignant neoplasm of breast; E78.5 Hyperlipidemia, unspecified; I10 Essential (primary) hypertension; E11.9 Type 2 diabetes mellitus without complications
CPT/HCPCS: 36415; 71045; 80053; 83880; 84484; 85025; 85610; 93005; 99285

== ENCOUNTER → 2023-06-13 15:20 | Outpatient (BNVA) | payer MEDICAID, SELFPAY | PROVIDERS: PCP Nurse Practitioner Family; Visit Provider Otolaryngology | DX: H71.92 Unspecified cholesteatoma, left ear (principal) | CPT/HCPCS: 99203 ==

== ENCOUNTER 2023-06-27 16:00 | Emergency (ER) | payer MEDICAID, SELFPAY ==
[2023-06-27 16:01] VITALS: BP 174/81; PULSE 69; RESP 17; TEMP 36.4; O2SAT 99; BMI 28.7
--- NOTE | 2023-06-27 16:08 | XRR_ITS ---
PROCEDURE INFORMATION: Exam: XR Chest Exam date and time: 06/27/2023 4:23 PM Age: 57 years old Clinical indication: Shortness of breath; Additional info: Chest discomfort, SOB, dizzy TECHNIQUE: Imaging protocol: Radiologic exam of the chest. Views: 1 view. COMPARISON: CR (CHEST, ) 06/03/2023 9:34 PM FINDINGS: Tubes, catheters and devices: Stable intact pacemaker hardware. Lap band is again seen at the GE junction. Lungs: Unremarkable. No consolidation. Pleural spaces: Unremarkable. No pleural effusion. No pneumothorax. Heart/Mediastinum: Unremarkable. No cardiomegaly. Bones/joints: No acute findings. XR/XR chest 1V portable [id number] IMPRESSION: No acute findings. No significant change.
--- NOTE | 2023-06-27 16:10 | W.ED.SYNCOPE ---
HPI - Syncope General: Chief Complaint: Syncope Stated Complaint: Near Syncope Time Seen by Provider: 06/27/23 16:07 History of Present Illness: 57-year-old female brought in by EMS with chief complaint of having intermittent palpitations. These palpitations can be associated with chest discomfort and dizziness. Sometimes it feels fast and other times it feels slow. Sometimes she has nausea with them. She does have a history of sick sinus syndrome and has a pacemaker placed in 2019. It is a Biotronik and she is atrial paced. No known CAD. Most recent stress test was in February 19. Patient reports she had episodes of palpitations for over a year but decided to come today because she has had a total of 5 episodes. One of the episodes lasted up to 30 minutes. Denies syncope, hemoptysis, lower extremity swelling, black or bloody stools, blood sugar issues, medication changes. Episodes can occur at any time not necessarily with exertion or any position change. Recent stressor includes moving things out of daughter's trailer home. Associated symptoms: Deny abdominal pain, fever(s) or headache(s) Review of Systems General: Reports: 10 or more systems reviewed and unremarkable except in HPI and below Const: Denies: fever(s), chills or body aches Eyes: Denies: change in vision ENMT: Denies: throat pain Card: Denies: edema or syncope Resp: Denies: dyspnea or productive cough GI: Denies: abdominal pain, vomiting or diarrhea : Denies: flank pain, dysuria or urinary frequency Musc: Denies: neck pain, back pain, extremity pain or extremity swelling Skin/Breast: Denies: rash or erythema Neuro: Denies: headache(s), numbness in extremities, weakness in extremities, lack of coordination or difficulty walking PFS ED PFSH: Medical History Allergic rhinitis Anxiety and depression B12 deficiency Bradycardia delivery delivered Chronic diarrhea History of breast cancer Hyperlipidemia Hypertension Nausea vomiting and diarrhea Pacemaker Psychiatric care Type 2 diabetes mellitus Vitamin D deficiency Surgical History Gastric bypass status for obesity H/O bilateral mastectomy History of appendectomy History of cholecystectomy History of partial hysterectomy Family History Mother COPD with asthma Pacemaker Hypertension Hyperlipidemia Lung disease Colitis Anxiety and depression Brother Anxiety and depression Diabetes Psychiatric illness schizophrenia Father Liver cirrhosis Cancer Social History Smoking and tobacco status: never smoked Second hand smoke exposure: No Alcohol intake: never Substance/Drug Use: never Household members: spouse and children Marital status: Current occupational status: disabled Current gender identity: Female Special christopher needs: No Agree to transfusion: Yes Physical Exam Const: COMMON NORMALS: no limitations, alert and well nourished EXAM LIMITATIONS: no altered mental status HENMT: COMMON NORMALS: normocephalic, atraumatic and external ears normal HEAD & SCALP: normocephalic and atraumatic EXTERNAL EAR: Yes external ears normal MOUTH: no muffled voice Eye: COMMON NORMALS: EOMs intact bilaterally, conjunctivae normal and no scleral icterus CONJUNCTIVA: Yes conjunctivae normal Neck/C-Spine: COMMON NORMALS: no JVD GENERAL: Yes normal visual inspection and Yes trachea midline Resp: COMMON NORMALS: normal respiratory effort, No use of accessory muscles and clear to auscultation bilaterally AUSCULTATION: clear to auscultation bilaterally Cardio: COMMON NORMALS: no JVD, regular rate and regular rhythm RATE: regular rate RHYTHM: regular rhythm GI: COMMON NORMALS: Soft to palpation and non-tender PALPATION: Yes Soft to palpation and No Guarding due to palpation present (GI) Extremity: COMMON NORMALS: normal to inspection Neuro: COMMON NORMALS: moves all extremities, no focal motor deficits and no sensory deficits noted SENSORIUM/ORIENTATION: Yes alert SPEECH: speech normal Psych: COMMON NORMALS: mental status grossly normal, Normal thought process present, cooperative, normal affect and speech normal SPEECH: Yes normal speech THOUGHT PROCESS: Normal thought process present Skin: COMMON NORMALS: no rashes or lesions noted, turgor normal and no jaundice GENERAL SKIN EXAM: no rashes or lesions noted and turgor normal Course Vital Signs: Vital signs: Vital Signs Temperature 97.6 F 06/27/23 16:01 Pulse Rate 70 06/27/23 17:36 Respiratory Rate 17 06/27/23 16:01 Blood Pressure 154/106 06/27/23 17:36 Pulse Oximetry 100 06/27/23 17:36 Oxygen Delivery Me thod Room Air 06/27/23 17:36 MDM - Syncope Medical Decision Making Patient presents with palpitations associated with dizziness, shortness of breath, and sometimes chest discomfort. She has a pacemaker in. We will interrogate her pacemaker to determine if there is any cardiac etiology. I will also obtain a troponin, EKG, chest x-ray, electrolytes, hemoglobin. Patient recently had a stress test and January 2023 there was no Lexiscan induced chest pain or cardiac arrhythmia. Her echocardiogram showed an EF of 63% with mild to moderate tricuspid regurg mild aortic and mitral regurg. EKG shows atrial paced rhythm at a rate of 65 bpm, normal axis, QRS duration 96 ms, no concerning ST segment elevations or depressions Update 1700. There is not a [employer] capable interrogation device in the hospital. I called Dr. Villanueva, offal roller, who is going to look in their clinic but otherwise, we'll have to call in a rep to interrogate. The client relations representative for [employer] has sent us in the interrogation of the patient's pacemaker. Last message was from June 27, 2023. Last clinic follow-up was February 28, 2023. It was implanted on January 30, 2019. The battery is 65% very there were no abnormal findings on the interrogation. There were 0 atrial arrhythmia episodes per day. Atrial burden was 0%. There were 0 episodes per day of high ventricular rate. Long-term trends show the heart rate between 70 and 100. Patient's blood work was notable for normal D-dimer, normal hemoglobin, slightly low platelets, slightly low potassium. The platelets are not critically low and can be followed. The potassium will be supplemented. Troponin and BNP were negative. Patient was monitored with telemetry for over 2 hours in the emergency department. She did not have any arrhythmias. She does not have any signs or symptoms of stroke, hypotension, hypoglycemia, severe electrolyte abnormalities, dehydration or other life-threatening events. Given the normal interrogation and normal work-up here, patient can be discharged with follow-up outpatient. Medical Records Date of Service: 02/03/23 Procedure(s): NM dinorah perf SPECT r/s* [id number] ?IMPRESSIONS ?1. Normal myocardial perfusion imaging with no evidence of ischemia ?2. LV systolic function is normal Date of Service: 02/03/23 Procedure(s): Sestamibi Stress Test Request Conclusion: 1. ? Normal EKG response to Lexiscan infusion 2.? No Lexiscan induced chest pain or cardiac arrhythmia. 3.? Normal blood pressure and heart rate response. 4.? Sestamibi/sestamibi perfusion scan pending; see separate report. Date of Service: 02/02/23 Procedure(s): CV. echo complete* [id number] ?CONCLUSIONS ?Normal left ventricular size and systolic function, EF 63 %. ?Bbgj-pu-blguujyl tricuspid valve regurgitation.? The estimated ?pulmonary artery peak systolic pressure was 33 mmHg.? This could ?be an underestimation because of the poor Doppler signals.no ?gross wall motion abnormalities. ?Mild aortic valve regurgitation. ?Mild mitral valve regurgitation. ?There is no pericardial effusion. ?There are no intracardiac masses. ?No similar previous studies are available for comparison Lab Data 06/27/23 16:18 06/27/23 16:18 Radiology Impressions Chest X-Ray 06/27/23 16:08 IMPRESSION: No acute findings. No significant change. Laboratory Results WBC 5.25 10^3/uL (3.29-11.43) 06/27/23 16:18 RBC 3.89 10^6/uL (3.85-5.65) 06/27/23 16:18 Hgb 12.10 g/dL (11.27-16.99) 06/27/23 16:18 Hct 35.3 % (36-47) L 06/27/23 16:18 MCV 90.7 fl (85-98) 06/27/23 16:18 MCH 31.1 pg (27-33) 06/27/23 16:18 MCHC 34.3 g/dL (30-55) 06/27/23 16:18 RDW 12.4 % (12.1-15.1) 06/27/23 16:18 Plt Count 146 10^3/cmm (157-399) L 06/27/23 16:18 MPV 11.3 fL (7.4-10.4) H 06/27/23 16:18 Neut % (Auto) 45.1 % 06/27/23 16:18 Lymph % (Auto) 45.7 % 06/27/23 16:18 [place] % (Auto) 6.9 % 06/27/23 16:18 Eos % (Auto) 1.5 % 06/27/23 16:18 Baso % (Auto) 0.6 % 06/27/23 16:18 Neut # (Auto) 2.37 10^3/uL (1.8-7.7) 06/27/23 16:18 Lymph # (Auto) 2.4 10^3/uL (0.8-4.8) 06/27/23 16:18 [place] # (Auto) 0.4 10^3/uL (0.2-0.9) 06/27/23 16:18 Eos # (Auto) 0.1 10^3/uL (0.0-0.8) 06/27/23 16:18 Baso # (Auto) 0.0 10^3/uL (0.0-0.1) 06/27/23 16:18 Nucleated RBC % (auto) 0 % 06/27/23 16:18 Nucleated RBCs # 0.0 /100WBC 06/27/23 16:18 D-Dimer 0.35 ug/mLFEU (0-0.59) 06/27/23 16:18 Sodium 141 mmol/L (136-145) 06/27/23 16:18 Potassium 3.2 mmol/L (3.5-5.1) L 06/27/23 16:18 Chloride 104 mmol/L (98-107) 06/27/23 16:18 Carbon Dioxide 27 mmol/L (22-29) 06/27/23 16:18 Anion Gap 13.2 (5-19) 06/27/23 16:18 BUN 11 mg/dL (6-20) 06/27/23 16:18 Creatinine 0.6 mg/dL (0.5-0.9) 06/27/23 16:18 GFR Calculation 103.8 mL/min (90-130) 06/27/23 16:18 Glucose 100 mg/dL (65-115) 06/27/23 16:18 Calculated Osmolality 291 mOsm/kg (285-295) 06/27/23 16:18 Calcium 9.3 mg/dL (8.5-10.5) 06/27/23 16:18 Total Bilirubin 0.6 mg/dL (0.15-1.2) 06/27/23 16:18 AST 11 U/L (0-32) 06/27/23 16:18 ALT 8 U/L (0-33) 06/27/23 16:18 Alkaline Phosphatase 74 U/L (35-105) 06/27/23 16:18 Troponin T Baseline 6 ng/L (0-10) 06/27/23 16:18 NT-Pro-B Natriuret Pep 36 pg/mL (0-125) 06/27/23 16:18 Total Protein 7.1 g/dL (6.6-8.7) 06/27/23 16:18 Albumin 4.5 g/dL (3.5-5.2) 06/27/23 16:18 Globulin 2.6 g/dL (1.3-4.6) 06/27/23 16:18 Discharge Plan Discharge Patient Disposition: Home Clinical Impression: Heart palpitations, Pacemaker Condition: Stable Prescriptions: No Action loperamide 2 mg capsule 2 mg PO TID PRN (Reason: Diarrhea) venlafaxine 150 mg capsule,extended release 24hr 300 mg PO DAILY Qty: 60 2RF mirtazapine 15 mg tablet 15 mg PO BEDTIME Qty: 30 2RF rosuvastatin 40 mg tablet 40 mg PO DAILY Qty: 30 5RF fexofenadine [Marly Allergy] 180 mg tablet 180 mg PO DAILY Qty: 30 5RF diclofenac sodium 75 mg tablet,delayed release (DR/EC) 75 mg PO BID PRN (Reason: pain) Qty: 60 5RF methylprednisolone [Medrol (Edward)] 4 mg tablets,dose pack See Rx Instructions PO PER PKG DIR Qty: 21 0RF Rx Instructions: PO PER PKG DIR (DME) BD Luer-Kennedy Syringe 3 mL 25 gauge x 1 syringe See Rx Instructions .ROUTE .COMPLEX Qty: 4 2RF Dose Instruction: USE DIRECTED Rx Instructions: USE DIRECTED cyanocobalamin (vitamin B-12) 1,000 mcg/mL solution See Rx Instructions .ROUTE .COMPLEX Qty: 1 2RF Dose Instruction: INJECT 1 ML ONCE EVERY MONTH Rx Instructions: INJECT 1 ML ONCE EVERY MONTH ergocalciferol (vitamin D2) 1,250 mcg (50,000 unit) capsule See Rx Instructions .ROUTE .COMPLEX Qty: 12 0RF Dose Instruction: Take 1 capsule by mouth once a week Rx Instructions: Take 1 capsule by mouth once a week Vitamin D3 50 mcg (2,000 unit) Capsule 50 mcg PO DAILY ciprofloxacin HCl 500 mg tablet 500 mg PO BID Qty: 20 0RF Discharge Orders: Discharge ED (Routine); Ordered 06/27/23 Ordered By: Wil Stoner Referrals: Ana M Putnam FNP [Primary Care Provider] - 4-7 days Discharge Diet: Usual diet Discharge Activity: Resume usual activity Patient Instructions: Heart Palpitations (ED), Dizziness (ED), Opioid Safety, Pain Management Activity Restrictions/Additional Instructions: Your pacemaker interrogation did not show any abnormal heart rhythms. The battery life is 65%. There were no signs of any heart attack or blood clot in the pulmonary artery. Your potassium was mildly low and was replaced. Additional information has been provided as handouts, please take the time to read and understand this information. It is very important that you follow up with a Doctor as discussed during your visit today, the information to contact your doctor is included in your discharge instructions. Failure to adhere to your follow up instructions may lead to severe disability, injury, or so please make sure to keep your appointments. Please return to the Emergency Department immediately and without fail if you experience any new, worsening, or concerning problems such as:passing out, chest pain, shortness of breath, headache or body pain, fever, lightheadedness, weakness, numbness, or any other concerning symptoms. If taking a substance like an opiate or other strong pain medication, please do not drive or operate heavy machinery while under the effects of this medicine. Thank you for allowing us to participate in your care today. Coding Level of Care Code ED Incident Commander for Cristian Stovall
--- NOTE | 2023-06-27 16:21 | ECG_ITS ---
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 Measurements Intervals [place] Rate: 65 P: 130 UT: 190 QRS: 0 QRSD: 96 T: 46 QT: 404 QTc: 420 Interpretive Statements ELECTRONIC ATRIAL PACEMAKER LOW QRS VOLTAGE IN PRECORDIAL LEADS [QRS DEFLECTION < 1.0 mV IN CHEST LEADS] ABNORMAL RHYTHM ECG Compared to ECG 06/03/2023 21:17:05 No significant changes Electronically Signed On 06-27-2023 23:58:10 CDT by Cruz Martinez M.D. [id number]
[2023-06-27 16:30] VITALS: BP 161/91; PULSE 65; O2SAT 100
--- NOTE | 2023-06-27 16:41 | PC.NURSE ---
PT HOOKED UP TO CONTINUOUS BEDSIDE CARDIAC MONITORING.
[2023-06-27 16:45] LABS: Troponin(5th) Baseline 6 ng/L (0-10)
[2023-06-27 16:49] LABS: Basophils % 0.6 %; Eosinophils # 0.1 10^3/uL (0.0-0.8); Eosinophils % 1.5 %; Hematocrit 35.3 % (36-47); Lymphocytes # 2.4 10^3/uL (0.8-4.8); Lymphocytes % 45.7 %; Mean Corpuscular HGB Conc 34.3 g/dL (30-55); Mean Corpuscular Hemoglobin 31.1 pg (27-33); Mean Corpuscular Volume 90.7 fl (85-98); Mean Platelet Volume 11.3 fL (7.4-10.4); Monocytes # 0.4 10^3/uL (0.2-0.9); Monocytes % 6.9 %; Neutrophils # 2.37 10^3/uL (1.8-7.7); Neutrophils % 45.1 %; Nucleated Red Blood Cells % 0 %; Platelet Count 146 10^3/cmm (157-399); Red Blood Count 3.89 10^6/uL (3.85-5.65); Red Cell Distribution Width 12.4 % (12.1-15.1); White Blood Count 5.25 10^3/uL (3.29-11.43)
[2023-06-27 16:50] LABS: Alanine Aminotransferase 8 U/L (0-33); Albumin Level 4.5 g/dL (3.5-5.2); Alkaline Phosphatase 74 U/L (35-105); Anion Gap 13.2 (5-19); Aspartate Amino Transferase 11 U/L (0-32); Blood Urea Nitrogen 11 mg/dL (6-20); Calcium 9.3 mg/dL (8.5-10.5); Carbon Dioxide 27 mmol/L (22-29); Chloride 104 mmol/L (98-107); Globulin 2.6 g/dL (1.3-4.6); Glomerular Filtration Rate 103.8 mL/min (90-130); Glucose 100 mg/dL (65-115); Osmolality Calculated 291 mOsm/kg (285-295); Potassium 3.2 mmol/L (3.5-5.1); Sodium 141 mmol/L (136-145); Total Bilirubin 0.6 mg/dL (0.15-1.2); Total Protein 7.1 g/dL (6.6-8.7)
[2023-06-27 16:54] LABS: D Dimer 0.35 ug/mLFEU (0-0.59)
[2023-06-27 17:14] LABS: NT Pro B Type Natriuretic Pept 36 pg/mL (0-125)
[2023-06-27 17:36] VITALS: BP 154/106; PULSE 70; O2SAT 100
--- NOTE | 2023-06-27 18:08 | ECG_ITS ---
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 Measurements Intervals [place] Rate: 62 P: 96 CO: 200 QRS: -5 QRSD: 93 T: 38 QT: 406 QTc: 412 Interpretive Statements ELECTRONIC ATRIAL PACEMAKER LOW QRS VOLTAGE IN PRECORDIAL LEADS [QRS DEFLECTION < 1.0 mV IN CHEST LEADS] ABNORMAL RHYTHM ECG Compared to ECG 06/27/2023 16:21:52 No significant changes Electronically Signed On 06-28-2023 0:04:45 CDT by Cruz Martinez M.D. [email or web address]/[id number]
[2023-06-27] MEDS: potassium chloride ER 20 mEq Tablet 40 MEQ PO (18:31)
[2023-06-27 18:38] VITALS: PULSE 79; O2SAT 100
== END 2023-06-27 18:39 | disposition home or self-care (01) ==
PROVIDERS: Emergency Provider Emergency Medicine; PCP Nurse Practitioner Family
DX: R00.2 Palpitations (principal); Z95.0 Presence of cardiac pacemaker; Z85.3 Personal history of malignant neoplasm of breast; E78.5 Hyperlipidemia, unspecified; I10 Essential (primary) hypertension; E11.9 Type 2 diabetes mellitus without complications
CPT/HCPCS: 36415; 71045; 80053; 83880; 84484; 85025; 85378; 93005; 99285

== ENCOUNTER 2023-06-29 12:12 | Emergency (ER) | payer MEDICAID, SELFPAY ==
[2023-06-29 12:18] VITALS: BMI 28.7
[2023-06-29 12:19] VITALS: BP 138/78; PULSE 85; RESP 15; TEMP 37.1; O2SAT 100
--- NOTE | 2023-06-29 14:28 | CTR_ITS ---
PROCEDURE INFORMATION: Exam: CT Head Without Contrast Exam date and time: 06/29/2023 2:36 PM Age: 57 years old Clinical indication: Pain; Headache; Additional info: GIBBS TECHNIQUE: Imaging protocol: Computed tomography of the head without contrast. Radiation optimization: All CT scans at this facility use at least one of these dose optimization techniques: automated exposure control; mA and/or kV adjustment per patient size (includes targeted exams where dose is matched to clinical indication); or iterative reconstruction. REPORTING DATA: Count of CT and Cardiac NM exams in prior 12 months: This patient has received 4 known CTs and 0 known cardiac nuclear medicine studies in the 12 months prior to the current study. COMPARISON: CT head wo con* [id number] 11/17/2022 5:56 PM RADIATION DOSE METRICS: Total DLP (mGy-cm): 973.38 FINDINGS: Brain: No hemorrhage. No edema. No significant white matter disease. No mass effect. Cerebral ventricles: No ventriculomegaly. Paranasal sinuses: Visualized sinuses are unremarkable. No fluid levels. Mastoid air cells: Visualized mastoid air cells are well aerated. Bones/joints: Unremarkable. No acute fracture. Soft tissues: Unremarkable. CT/CT head wo con* [id number] IMPRESSION: No acute intracranial abnormality.
[2023-06-29 15:06] LABS: Basophils % 0.5 %; Eosinophils # 0.1 10^3/uL (0.0-0.8); Eosinophils % 1.4 %; Hematocrit 37.8 % (36-47); Lymphocytes # 2.7 10^3/uL (0.8-4.8); Lymphocytes % 46.2 %; Mean Corpuscular HGB Conc 32.8 g/dL (30-55); Mean Corpuscular Hemoglobin 30.2 pg (27-33); Mean Platelet Volume 11.4 fL (7.4-10.4); Monocytes # 0.3 10^3/uL (0.2-0.9); Monocytes % 5.7 %; Neutrophils # 2.68 10^3/uL (1.8-7.7); Nucleated Red Blood Cells % 0 %; Platelet Count 161 10^3/cmm (157-399); Red Blood Count 4.11 10^6/uL (3.85-5.65); Red Cell Distribution Width 12.5 % (12.1-15.1); White Blood Count 5.82 10^3/uL (3.29-11.43)
[2023-06-29] MEDS: sodium chloride 0.9% 1,000 ML 999 ML IV (15:06)
[2023-06-29 15:30] LABS: Alanine Aminotransferase 9 U/L (0-33); Albumin Level 4.6 g/dL (3.5-5.2); Alkaline Phosphatase 81 U/L (35-105); Aspartate Amino Transferase 14 U/L (0-32); Blood Urea Nitrogen 7 mg/dL (6-20); Calcium 9.5 mg/dL (8.5-10.5); Carbon Dioxide 24 mmol/L (22-29); Chloride 106 mmol/L (98-107); Globulin 2.7 g/dL (1.3-4.6); Glomerular Filtration Rate 103.8 mL/min (90-130); Glucose 94 mg/dL (65-115); Osmolality Calculated 290 mOsm/kg (285-295); Sodium 141 mmol/L (136-145); Total Bilirubin 0.4 mg/dL (0.15-1.2); Total Protein 7.3 g/dL (6.6-8.7)
[2023-06-29 15:50] LABS: Anion Gap 14.8 (5-19); Potassium 3.8 mmol/L (3.5-5.1)
--- NOTE | 2023-06-29 16:58 | ED_ITS ---
HPI - Headache General: Chief Complaint: Headache Stated Complaint: head pain Time Seen by Provider: 06/29/23 14:01 History of Present Illness: Patient comes in today with complaint of headache x1 week. She reports a generalized headache and it is the worst headache she has ever had. She denies any neurologic changes. She does report a little bit of nausea with a headache. She is concerned because her sister was just hospitalized for a bad headache and it was something wrong with her vessels. Associated symptoms: Reports nausea; Deny chest pain, fever(s) or vomiting Review of Systems Const: Denies: fever(s), chills or body aches ENMT: Denies: throat pain, nasal discharge, nasal congestion or post nasal drip Card: Denies: chest pain, palpitations or irregular heart rhythm Resp: Denies: dyspnea, productive cough or non-productive cough GI: Reports: nausea; Denies: abdominal pain or vomiting : Denies: flank pain, difficulty voiding or dysuria Neuro: Reports: headache(s); Denies: numbness in extremities, weakness in extremities, sensory changes, lack of coordination, difficulty walking, behavioral changes or Slurred speech present [facility] ED PFSH: Medical History Allergic rhinitis Anxiety and depression B12 deficiency Bradycardia delivery delivered Chronic diarrhea History of breast cancer Hyperlipidemia Hypertension Nausea vomiting and diarrhea Pacemaker Psychiatric care Type 2 diabetes mellitus Vitamin D deficiency Surgical History Gastric bypass status for obesity H/O bilateral mastectomy History of appendectomy History of cholecystectomy History of partial hysterectomy Family History Mother COPD with asthma Pacemaker Hypertension Hyperlipidemia Lung disease Colitis Anxiety and depression Brother Anxiety and depression Diabetes Psychiatric illness schizophrenia Father Liver cirrhosis Cancer Social History Smoking and tobacco status: never smoked Second hand smoke exposure: No Alcohol intake: never Substance/Drug Use: never Household members: spouse and children Marital status: Current occupational status: disabled Current gender identity: Female Special christopher needs: No Agree to transfusion: Yes Physical Exam Const: COMMON NORMALS: no acute distress, patient oriented x3 and alert OTHER: Patient is able to sit up in bed and laugh with provider. Physical exam findings are inconsistent with patient stated pain rating Eye: COMMON NORMALS: Equal, round and reactive pupils present, EOMs intact bilaterally and conjunctivae normal CONJUNCTIVA: Yes conjunctivae normal PUPIL: Yes Equal, round and reactive pupils present Neck/C-Spine: COMMON NORMALS: no JVD Resp: COMMON NORMALS: normal respiratory effort, No use of accessory muscles and clear to auscultation bilaterally AUSCULTATION: clear to auscultation bilaterally Cardio: COMMON NORMALS: no JVD, regular rate, regular rhythm, S1 normal heart sound present and S2 normal heart sound present RATE: regular rate RHYTHM: regular rhythm HEART SOUNDS: S1 normal heart sound present and S2 normal heart sound present GI: COMMON NORMALS: Normal to inspection, nondistended, normoactive bowel sounds present, Soft to palpation and non-tender PALPATION: Yes Soft to palpation Neuro: COMMON NORMALS: patient oriented x3, CN's II-XII intact bilaterally, moves all extremities and no focal motor deficits SENSORIUM/ORIENTATION: Yes alert Course Vital Signs: Vital signs: Vital Signs Temperature 98.8 F 06/29/23 12:19 Pulse Rate 71 06/29/23 17:24 Respiratory Rate 15 06/29/23 12:19 Blood Pressure 143/91 06/29/23 17:24 Pulse Oximetry 100 06/29/23 17:24 Oxygen Delivery Me thod Room Air 06/29/23 12:19 MDM - Headache Medical Decision Making Consider migraine, acute sinusitis, intracranial abnormality Labs are essentially unremarkable. CT head shows no acute abnormalities. 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 1 L of normal saline administered. Patient states that she is feeling fine and feels like being discharged to home. She is advised to follow-up with her primary care provider. Return to the ER for any new or worsening symptoms. Patient verbalized understanding of all instruction. Discharged home in stable condition Lab Data 06/29/23 14:58 06/29/23 14:[address] 06/29/23 14:28 IMPRESSION: No acute intracranial abnormality. Laboratory Results WBC 5.82 10^3/uL (3.29-11.43) 06/29/23 14:58 RBC 4.11 10^6/uL (3.85-5.65) 06/29/23 14:58 Hgb 12.40 g/dL (11.27-16.99) 06/29/23 14:58 Hct 37.8 % (36-47) 06/29/23 14:58 MCV 92.0 fl (85-98) 06/29/23 14:58 MCH 30.2 pg (27-33) 06/29/23 14:58 MCHC 32.8 g/dL (30-55) 06/29/23 14:58 RDW 12.5 % (12.1-15.1) 06/29/23 14:58 Plt Count 161 10^3/cmm (157-399) 06/29/23 14:58 MPV 11.4 fL (7.4-10.4) H 06/29/23 14:58 Neut % (Auto) 46.0 % 06/29/23 14:58 Lymph % (Auto) 46.2 % 06/29/23 14:58 [place] % (Auto) 5.7 % 06/29/23 14:58 Eos % (Auto) 1.4 % 06/29/23 14:58 Baso % (Auto) 0.5 % 06/29/23 14:58 Neut # (Auto) 2.68 10^3/uL (1.8-7.7) 06/29/23 14:58 Lymph # (Auto) 2.7 10^3/uL (0.8-4.8) 06/29/23 14:58 [place] # (Auto) 0.3 10^3/uL (0.2-0.9) 06/29/23 14:58 Eos # (Auto) 0.1 10^3/uL (0.0-0.8) 06/29/23 14:58 Baso # (Auto) 0.0 10^3/uL (0.0-0.1) 06/29/23 14:58 Nucleated RBC % (auto) 0 % 06/29/23 14:58 Nucleated RBCs # 0.0 /100WBC 06/29/23 14:58 Sodium 141 mmol/L (136-145) 06/29/23 14:58 Potassium 3.8 mmol/L (3.5-5.1) 06/29/23 14:58 Chloride 106 mmol/L (98-107) 06/29/23 14:58 Carbon Dioxide 24 mmol/L (22-29) 06/29/23 14:58 Anion Gap 14.8 (5-19) 06/29/23 14:58 BUN 7 mg/dL (6-20) 06/29/23 14:58 Creatinine 0.6 mg/dL (0.5-0.9) 06/29/23 14:58 GFR Calculation 103.8 mL/min (90-130) 06/29/23 14:58 Glucose 94 mg/dL (65-115) 06/29/23 14:58 Calculated Osmolality 290 mOsm/kg (285-295) 06/29/23 14:58 Calcium 9.5 mg/dL (8.5-10.5) 06/29/23 14:58 Total Bilirubin 0.4 mg/dL (0.15-1.2) 06/29/23 14:58 AST 14 U/L (0-32) 06/29/23 14:58 ALT 9 U/L (0-33) 06/29/23 14:58 Alkaline Phosphatase 81 U/L (35-105) 06/29/23 14:58 Total Protein 7.3 g/dL (6.6-8.7) 06/29/23 14:58 Albumin 4.6 g/dL (3.5-5.2) 06/29/23 14:58 Globulin 2.7 g/dL (1.3-4.6) 06/29/23 14:58 Discharge Plan Discharge Patient Disposition: Home Clinical Impression: Headache Condition: Stable Prescriptions: No Action loperamide 2 mg capsule 2 mg PO TID PRN (Reason: Diarrhea) venlafaxine 150 mg capsule,extended release 24hr 300 mg PO DAILY Qty: 60 2RF mirtazapine 15 mg tablet 15 mg PO BEDTIME Qty: 30 2RF rosuvastatin 40 mg tablet 40 mg PO DAILY Qty: 30 5RF diclofenac sodium 75 mg tablet,delayed release (DR/EC) 75 mg PO BID PRN (Reason: pain) Qty: 60 5RF (DME) BD Luer-Kennedy Syringe 3 mL 25 gauge x 1 syringe See Rx Instructions .ROUTE .COMPLEX Qty: 4 2RF Dose Instruction: USE DIRECTED Rx Instructions: USE DIRECTED ergocalciferol (vitamin D2) 1,250 mcg (50,000 unit) capsule See Rx Instructions .ROUTE .COMPLEX Qty: 12 0RF Dose Instruction: Take 1 capsule by mouth once a week Rx Instructions: Take 1 capsule by mouth once a week cyanocobalamin (vitamin B-12) 1,000 mcg/mL solution See Rx Instructions .ROUTE .COMPLEX Qty: 1 2RF Dose Instruction: INJECT 1 ML ONCE EVERY MONTH Rx Instructions: INJECT 1 ML ONCE EVERY MONTH cholecalciferol (vitamin D3) [Vitamin D3] 50 mcg (2,000 unit) Capsule 50 mcg PO DAILY Discharge Orders: Discharge ED (Routine); Ordered 06/29/23 Ordered By: Payal Holland Referrals: Ana M Putnam FNP [Primary Care Provider] - Discharge Diet: Usual diet Discharge Activity: Resume usual activity Patient Instructions: Headache Activity Restrictions/Additional Instructions: Follow-up with primary care provider. Return to the ER as needed for new or worsening symptoms. Coding Level of Care Code ED [employer] for Cristian Stovall
[2023-06-29 17:16] VITALS: BP 143/91; PULSE 66; O2SAT 100
[2023-06-29 17:24] VITALS: BP 143/91; PULSE 71; O2SAT 100
== END 2023-06-29 17:26 | disposition home or self-care (01) ==
PROVIDERS: Emergency Provider Nurse Practitioner Family; PCP Nurse Practitioner Family
DX: R51.9 Headache, unspecified (principal); Z85.3 Personal history of malignant neoplasm of breast; E78.5 Hyperlipidemia, unspecified; I10 Essential (primary) hypertension; E11.9 Type 2 diabetes mellitus without complications
CPT/HCPCS: 36415; 70450; 80053; 85025; 99284; J7030

== ENCOUNTER 2023-07-08 18:56 | Emergency (ER) | payer MEDICAID, SELFPAY ==
[2023-07-08 18:59] VITALS: BP 157/114; PULSE 83; RESP 20; TEMP 36.6; O2SAT 96; BMI 28.1
--- NOTE | 2023-07-08 19:00 | ECG_ITS ---
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 Measurements Intervals [place] Rate: 84 P: 53 [place]: 144 QRS: -3 QRSD: 103 T: 48 QT: 377 QTc: 447 Interpretive Statements SINUS RHYTHM INCOMPLETE RIGHT BUNDLE BRANCH BLOCK [90+ ms QRS DURATION, TERMINAL R IN V1/V2, 40+ ms S IN I/aVL/V4/V5/V6] Compared to ECG 06/27/2023 18:13:32 Incomplete right bundle-branch block now present Atrial-paced complex(es) or rhythm no longer present Electronically Signed On 07-09-2023 10:53:37 CDT by Shaggy Birmingham M.D. [id number] f
[2023-07-08 19:02] VITALS: BP 157/93; PULSE 83; RESP 24; O2SAT 99
--- NOTE | 2023-07-08 19:38 | W.ED.DIZZY ---
HPI - Dizziness General: Chief Complaint: Dizziness Stated Complaint: VERTIGO; HEADACHE Time Seen by Provider: 07/08/23 19:04 History of Present Illness: HPI Narrative: 57 yo f reports episodes of vertigo. She's had it before but recurred yesterday. Worse with position change. Better with laying still. Also felt like her BP was up--> she checked it and was in 150s. She is not having any problems with vision other than when the vertigo hits things are rotating counterclockwise in the horizontal axis. No double vision, problems with visual acuity. Denies any issues with numbness, tingling, problems with cognition, problems with speech, problems with ambulation, problems with fine motor skills, weakness, or any other neurologic symptoms. She has intermittently had a vague pressure in her head. Associated symptoms: Denies chest pain, chills, nausea, syncope or vomiting Associated neuro symptoms: Deny numbness in extremities Review of Systems General: Reports: 10 or more systems reviewed and unremarkable except in HPI and below Const: Denies: fever(s), chills or body aches Eyes: Denies: change in vision ENMT: Denies: throat pain Card: Denies: chest pain, edema or syncope Resp: Denies: dyspnea or productive cough GI: Denies: abdominal pain, nausea, vomiting or diarrhea : Denies: flank pain, dysuria or urinary frequency Musc: Denies: neck pain, back pain, extremity pain or extremity swelling Skin/Breast: Denies: rash or erythema Neuro: Denies: numbness in extremities, weakness in extremities, lack of coordination or difficulty walking PFSH ED PFSH: Medical History Allergic rhinitis Anxiety and depression B12 deficiency Bradycardia delivery delivered Chronic diarrhea History of breast cancer Hyperlipidemia Hypertension Nausea vomiting and diarrhea Pacemaker Psychiatric care Type 2 diabetes mellitus Vitamin D deficiency Surgical History Gastric bypass status for obesity H/O bilateral mastectomy History of appendectomy History of cholecystectomy History of partial hysterectomy Family History Mother COPD with asthma Pacemaker Hypertension Hyperlipidemia Lung disease Colitis Anxiety and depression Brother Anxiety and depression Diabetes Psychiatric illness schizophrenia Father Liver cirrhosis Cancer Social History Smoking and tobacco status: never smoked Second hand smoke exposure: No Alcohol intake: never Substance/Drug Use: never Household members: spouse and children Marital status: Current occupational status: disabled Current gender identity: Female Special christopher needs: No Agree to transfusion: Yes Physical Exam Const: COMMON NORMALS: no limitations, alert and well nourished EXAM LIMITATIONS: no altered mental status HENMT: COMMON NORMALS: normocephalic, atraumatic, external ears normal, EAC's normal and TM's normal bilaterally HEAD & SCALP: normocephalic and atraumatic EXTERNAL EAR: Yes external ears normal EXTERNAL AUDITORY CANAL: EAC's normal TYMPANIC MEMBRANE: TM's normal bilaterally MOUTH: no muffled voice Eye: COMMON NORMALS: Equal, round and reactive pupils present (pupils pretty dilated but react normally, including consensual response), EOMs intact bilaterally, conjunctivae normal, no scleral icterus and normal visual kumar by confrontation ALIGNMENT: Yes alignment normal PERIORBITAL: periorbital findings normal EYELID: eyelids normal CONJUNCTIVA: Yes conjunctivae normal CORNEA: Yes corneas normal PUPIL: Yes Equal, round and reactive pupils present (pupils pretty dilated but react normally, including consensual response) EOM: Yes Nystagmus present (subtle left beating horizontal nystagmus with head movement) Nystagmus Noted: negative pendular, negative vertical, negative rotary or positive with left lateral gaze Neck/C-Spine: COMMON NORMALS: no JVD GENERAL: Yes normal visual inspection and Yes trachea midline Resp: COMMON NORMALS: normal respiratory effort, No use of accessory muscles and clear to auscultation bilaterally AUSCULTATION: clear to auscultation bilaterally Cardio: COMMON NORMALS: no JVD, regular rate and regular rhythm RATE: regular rate RHYTHM: regular rhythm GI: COMMON NORMALS: Soft to palpation and non-tender PALPATION: Yes Soft to palpation and No Guarding due to palpation present (GI) Extremity: COMMON NORMALS: normal to inspection Neuro: COMMON NORMALS: moves all extremities, no focal motor deficits and no sensory deficits noted SENSORIUM/ORIENTATION: Yes alert CRANIAL NERVES: Yes CN normal except as noted COORDINATION/BALANCE: elivgi-if-[id number] test normal and cqak-bu-acpt test normal SPEECH: speech normal COORDINATION: vqirxj-jj-pkhm test normal and upay-ae-lfzu test normal OTHER: Normal strength/sensation Psych: COMMON NORMALS: mental status grossly normal, Normal thought process present, cooperative, normal affect and speech normal SPEECH: Yes normal speech THOUGHT PROCESS: Normal thought process present Skin: COMMON NORMALS: no rashes or lesions noted, turgor normal and no jaundice GENERAL SKIN EXAM: no rashes or lesions noted and turgor normal Course Vital Signs: Vital signs: Vital Signs Temperature 98 F 07/08/23 18:59 Pulse Rate 77 07/08/23 20:30 Respiratory Rate 16 07/08/23 20:30 Blood Pressure 138/86 07/08/23 20:30 Pulse Oximetry 97 07/08/23 20:30 Oxygen Delivery Me thod Room Air 07/08/23 19:02 MDM - Dizziness Medical Decision Making Patient is noted to have elevated blood pressure. She is also complaining of intermittent positional dizziness. She has a subtle left beating nystagmus when she turns her head to the left. Extraocular canals are normal. Neuro logic examination is normal otherwise. She sitting comfortably and follows me about the room. Low suspicion for central etiology. Patient given a dose of clonidine, scopolamine patch, and a dose of alprazolam. Her blood pressure has improved and is back to normal. On repeat assessment, her symptoms have resolved. Since she had an elevated blood pressure at home and an elevated blood pressure here and does not have any medication for hypertension, I am going to prescribe her a as needed medication and have her keep a blood pressure journal. If it continues to be high she can follow-up with PCP about starting a daily med Discharge Plan Discharge Patient Disposition: Home Clinical Impression: Elevated blood pressure reading in office without diagnosis of hypertension, Vertigo Condition: Stable Prescriptions: New clonidine HCl 0.1 mg tablet 0.1 mg PO Q8H PRN (Reason: hypertensive emergency) Qty: 14 0RF Rx Instructions: As needed for blood pressure >140 on top number or >100 on bottom number No Action loperamide 2 mg capsule 2 mg PO TID PRN (Reason: Diarrhea) venlafaxine 150 mg capsule,extended release 24hr 300 mg PO DAILY Qty: 60 2RF mirtazapine 15 mg tablet 15 mg PO BEDTIME Qty: 30 2RF rosuvastatin 40 mg tablet 40 mg PO DAILY Qty: 30 5RF diclofenac sodium 75 mg tablet,delayed release (DR/EC) 75 mg PO BID PRN (Reason: pain) Qty: 60 5RF (DME) BD Luer-Kennedy Syringe 3 mL 25 gauge x 1 syringe See Rx Instructions .ROUTE .COMPLEX Qty: 4 2RF Dose Instruction: USE DIRECTED Rx Instructions: USE DIRECTED ergocalciferol (vitamin D2) 1,250 mcg (50,000 unit) capsule See Rx Instructions .ROUTE .COMPLEX Qty: 12 0RF Dose Instruction: Take 1 capsule by mouth once a week Rx Instructions: Take 1 capsule by mouth once a week cyanocobalamin (vitamin B-12) 1,000 mcg/mL solution See Rx Instructions .ROUTE .COMPLEX Qty: 1 2RF Dose Instruction: INJECT 1 ML ONCE EVERY MONTH Rx Instructions: INJECT 1 ML ONCE EVERY MONTH cholecalciferol (vitamin D3) [Vitamin D3] 50 mcg (2,000 unit) Capsule 50 mcg PO DAILY Discharge Orders: Discharge ED (Routine); Ordered 07/08/23 Ordered By: Wil Stoner Referrals: Ana M Putnam FNP [Primary Care Provider] - 4-7 days (Follow-up for vertigo and high blood pressure) Discharge Diet: Usual diet Discharge Activity: Increase activity as tolerated Patient Instructions: Hypertensive Crisis (ED), Dizziness (ED) Activity Restrictions/Additional Instructions: Take your blood pressure 2-3 times a day when you are relaxed. Record the levels. Use your new prescription (clonidine) as needed and as directed for high blood pressure. If your blood pressure remains high despite treatment with clonidine or it becomes a persistent daily problem, call your doctor. Make sure you are drinking at least 60 ounces of fluid daily. Avoid changing positions quickly. Eat 3 full meals daily. Return to the emergency department or call 911 if you develop new neurologic symptoms such as double vision, confusion, trouble speaking, coordination issues, weakness, numbness. You should also go to the ER if you develop fever, severe headache, neck pain, chest pain, palpitations. Read handout for more information. Coding Level of Care Code ED [employer] for Cristian Stovall
[2023-07-08 19:40] VITALS: BP 157/93; PULSE 83
[2023-07-08] MEDS: cloNIDine 0.1 mg Tablet 0.2 MG PO (19:40)
[2023-07-08] MEDS: ALPRAZolam 0.5 mg Tablet PO (19:40)
[2023-07-08] MEDS: scopolamine 1.5 Patch 1 PATCH TRANSDERMA (19:40)
[2023-07-08 20:02] VITALS: BP 172/100; PULSE 81; O2SAT 95
[2023-07-08 20:30] VITALS: BP 138/86; PULSE 77; RESP 16; O2SAT 97
[2023-07-08 21:21] VITALS: BP 109/74; PULSE 76; O2SAT 95
== END 2023-07-08 21:23 | disposition home or self-care (01) ==
PROVIDERS: Emergency Provider Emergency Medicine; PCP Nurse Practitioner Family
DX: R03.0 Elevated blood-pressure reading, without diagnosis of hypertension (principal); R42 Dizziness and giddiness; Z85.3 Personal history of malignant neoplasm of breast; E78.5 Hyperlipidemia, unspecified; I10 Essential (primary) hypertension; Z95.0 Presence of cardiac pacemaker; E11.9 Type 2 diabetes mellitus without complications
CPT/HCPCS: 93005; 99283

== ENCOUNTER 2024-01-14 21:28 | Emergency (ER) | payer OTHER, MEDICAID, SELFPAY ==
--- NOTE | 2024-01-14 21:31 | ECG_ITS ---
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 Measurements Intervals [place] Rate: 81 P: 64 [place]: 133 QRS: 4 QRSD: 101 T: 46 QT: 343 QTc: 400 Interpretive Statements SINUS RHYTHM Compared to ECG 07/08/2023 19:00:24 Incomplete right bundle-branch block no longer present Electronically Signed On 01-15-2024 18:49:37 CDT by Cruz Martinez M.D. [id number] f
[2024-01-14 21:35] VITALS: BP 141/89; PULSE 85; RESP 16; TEMP 36.4; O2SAT 100; BMI 28.3
[2024-01-14 21:38] VITALS: BP 129/84; PULSE 78; RESP 16; O2SAT 100
--- NOTE | 2024-01-14 21:53 | XRR_ITS ---
PROCEDURE INFORMATION: Exam: XR Chest Exam date and time: 01/14/2024 10:21 PM Age: 58 years old Clinical indication: Chest pressure; Prior surgery; Surgery date: 6+ months; Surgery type: Mastectomy. Gastric. Patient HX: C/O chest pain. History of breast cancer. ; Additional info: Cp TECHNIQUE: Imaging protocol: Radiologic exam of the chest. Views: 1 view. COMPARISON: CR XR chest 1V portable [id number] 06/27/2023 4:23 PM FINDINGS: Tubes, catheters and devices: Left-sided cardiac pacemaker again noted. Lungs: No CHF/pulmonary edema. Visible lungs appear essentially clear. Pleural spaces: No visible pneumothorax. No definite pleural fluid. Heart/Mediastinum: Heart size is within normal limits. Bones/joints: No significant acute finding. Gastrointestinal tract: Evidence for apparent gastric banding surgery. XR/XR chest 1V portable [id number] IMPRESSION: 1. No definite CHF or pneumonia. 2. Other findings discussed above.
[2024-01-14 22:24] LABS: Basophils % 0.2 %; Eosinophils # 0.1 10^3/uL (0.0-0.8); Eosinophils % 1.2 %; Hematocrit 39.7 % (36-47); Lymphocytes # 1.4 10^3/uL (0.8-4.8); Lymphocytes % 23.9 %; Mean Corpuscular HGB Conc 34.3 g/dL (30-55); Mean Corpuscular Hemoglobin 30.7 pg (27-33); Mean Corpuscular Volume 89.6 fl (85-98); Mean Platelet Volume 10.1 fL (7.4-10.4); Monocytes # 0.3 10^3/uL (0.2-0.9); Monocytes % 5.1 %; Neutrophils # 4.17 10^3/uL (1.8-7.7); Neutrophils % 69.3 %; Nucleated Red Blood Cells % 0 %; Platelet Count 194 10^3/cmm (157-399); Red Blood Count 4.43 10^6/uL (3.85-5.65); Red Cell Distribution Width 12.4 % (12.1-15.1); White Blood Count 6.02 10^3/uL (3.29-11.43)
[2024-01-14 22:38] LABS: Troponin(5th) Baseline < 6 ng/L (0-10)
--- NOTE | 2024-01-14 22:39 | ED_ITS ---
HPI - Chest Pain 2 General: Chief Complaint: Chest Pain Stated Complaint: sob dizzy chest pain vomit Time Seen by Provider: 01/14/24 21:52 History of Present Illness: 58-year-old female with history of pacem yonathan placement evidently for tachybradycardia syndrome. She does not have atherosclerotic heart disease. She presents with chest discomfort. She notes the pain is epigastric, radiating up into her chest. She says that she used to have acid reflux disease before her gastric bypass, but they tightened her esophageal sphincter during her surgery, so she has not had that since. She is mildly short of breath with it. She started to have discomfort after working outside in her yard. She says that when she came in the rest, the pain improved, but she started to belch, and the pain came back. She vomited as well. She is feeling somewhat improved now, but still is somewhat nauseated, with some epigastric discomfort. Associated symptoms: Reports abdominal pain, dyspnea, nausea and vomiting; Deny fever(s) or palpitations Review of Systems 2 Const: Denies: fever(s), chills or body aches Eyes: Denies: change in vision Card: Reports: chest pain; Denies: palpitations Resp: Reports: dyspnea; Denies: productive cough, non-productive cough or wheezing GI: Reports: abdominal pain, nausea and vomiting; Denies: diarrhea or hematochezia : Denies: difficulty voiding Skin/Breast: Denies: rash Neuro: Denies: headache(s), weakness in extremities, dizziness or confusion PFSH ED 2 PFSH: Medical History B12 deficiency Type 2 diabetes mellitus Psychiatric care Chronic diarrhea Allergic rhinitis delivery delivered Bradycardia Nausea vomiting and diarrhea Vitamin D deficiency Anxiety and depression Hyperlipidemia Hypertension History of breast cancer Pacemaker Surgical History History of cholecystectomy H/O bilateral mastectomy History of appendectomy Gastric bypass status for obesity History of partial hysterectomy Family History Mother COPD with asthma Postsurgical cardiac pacemaker in situ Hypertension Hyperlipidemia Lung disease Colitis Anxiety and depression Brother Anxiety and depression Diabetes Psychiatric illness schizophrenia Father Liver cirrhosis Cancer Social History (Reviewed 01/14/24 @ 23:29 by VIKTOR Mendoza Smoking and tobacco/nicotine status: never used tobacco/nicotine Second hand smoke exposure: No Alcohol intake: never Substance/Drug Use: never Household members: spouse and children Marital status: Current occupational status: disabled Current gender identity: Female Special christopher needs: No Agree to transfusion: Yes Physical Exam 2 Const: COMMON NORMALS: no acute distress GENERAL APPEARANCE: cooperative; not ill appearing and not frail appearing HENMT: COMMON NORMALS: normocephalic, atraumatic and Normal external nose present HEAD & SCALP: normocephalic and atraumatic FACE & SINUS: normal facial exam and face symmetric NOSE: Normal external nose present Eye: COMMON NORMALS: Equal, round and reactive pupils present and EOMs intact bilaterally PUPIL: Yes Equal, round and reactive pupils present Neck/C-Spine: GENERAL: Yes trachea midline Chest: CHEST: Yes Symmetrical chest wall rise Resp: COMMON NORMALS: normal respiratory effort, No retractions, No use of accessory muscles and clear to auscultation bilaterally AUSCULTATION: clear to auscultation bilaterally Cardio: COMMON NORMALS: regular rate and regular rhythm RATE: regular rate RHYTHM: regular rhythm GI: COMMON NORMALS: Normal to inspection, nondistended, normoactive bowel sounds present PALPATION: Yes Tenderness to palpation present (GI) (Epigastric) Extremity: COMMON NORMALS: no pedal edema Neuro: KETURAH COMA SCALE: document GCS findings Keturah coma scale eye opening: Spontaneous Keturah coma scale verbal response: Orientated [place] coma scale motor response: Obey commands Keturah coma scale total score: 15 S ENSORY EXAM: Yes extremities (intact) Psych: COMMON NORMALS: speech normal SPEECH: Yes normal speech Skin: COMMON NORMALS: no rashes or lesions noted GENERAL SKIN EXAM: no rashes or lesions noted Course 2 Vital Signs: Vital signs: Vital Signs Temperature 97.5 F L 01/14/24 21:35 Pulse Rate 86 01/15/24 00:30 Respiratory Rate 20 H 01/15/24 00:30 Blood Pressure 149/99 01/15/24 00:30 Pulse Oximetry 98 01/15/24 00:30 Oxygen Delivery Me thod Room Air 01/15/24 00:30 MDM - Chest Pain Medical Decision Making The patient's vitals are good. Clinically she appears good. She has mild epigastric tenderness. She has a normal CBC, CMP, unremarkable chest x-ray. Her troponin is nondetectable her BNP is nondetectable. We have ordered a GI cocktail to see if this improves her symptoms. If so, she will be allowed discharge. GI cocktail did not seem to help. The patient still complains of a 6 out of 10 pain after morphine and Toradol, although she seems to be doing fine. Delta troponin 0. CRP and lipase are normal. She will be allowed discharge. Lab Data 01/14/24 22:10 01/14/24 22:10 Radiology Impressions Chest X-Ray 01/14/24 21:53 IMPRESSION: 1. No definite CHF or pneumonia. 2. Other findings discussed above. Laboratory Results WBC 6.02 10^3/uL (3.29-11.43) 01/14/24 22:10 RBC 4.43 10^6/uL (3.85-5.65) 01/14/24 22:10 Hgb 13.60 g/dL (11.27-16.99) 01/14/24 22:10 Hct 39.7 % (36-47) 01/14/24 22:10 MCV 89.6 fl (85-98) 01/14/24 22:10 MCH 30.7 pg (27-33) 01/14/24 22:10 MCHC 34.3 g/dL (30-55) 01/14/24 22:10 RDW 12.4 % (12.1-15.1) 01/14/24 22:10 Plt Count 194 10^3/cmm (157-399) 01/14/24 22:10 MPV 10.1 fL (7.4-10.4) 01/14/24 22:10 Neut % (Auto) 69.3 % 01/14/24 22:10 Lymph % (Auto) 23.9 % 01/14/24 22:10 Hoke % (Auto) 5.1 % 01/14/24 22:10 Eos % (Auto) 1.2 % 01/14/24 22:10 Baso % (Auto) 0.2 % 01/14/24 22:10 Neut # (Auto) 4.17 10^3/uL (1.8-7.7) 01/14/24 22:10 Lymph # (Auto) 1.4 10^3/uL (0.8-4.8) 01/14/24 22:10 Hoke # (Auto) 0.3 10^3/uL (0.2-0.9) 01/14/24 22:10 Eos # (Auto) 0.1 10^3/uL (0.0-0.8) 01/14/24 22:10 Baso # (Auto) 0.0 10^3/uL (0.0-0.1) 01/14/24 22:10 Nucleated RBC % (auto) 0 % 01/14/24 22:10 Nucleated RBCs # 0.0 /100WBC 01/14/24 22:10 Sodium 139 mmol/L (136-145) 01/14/24 22:10 Potassium 3.8 mmol/L (3.5-5.1) 01/14/24 22:10 Chloride 102 mmol/L (98-107) 01/14/24 22:10 Carbon Dioxide 25 mmol/L (22-29) 01/14/24 22:10 Anion Gap 15.8 (5-19) 01/14/24 22:10 BUN 12 mg/dL (6-20) 01/14/24 22:10 Creatinine 0.6 mg/dL (0.5-0.9) 01/14/24 22:10 GFR Calculation 103.4 mL/min (90-130) 01/14/24 22:10 Glucose 92 mg/dL (65-115) 01/14/24 22:10 Calculated Osmolality 287 mOsm/kg (285-295) 01/14/24 22:10 Calcium 9.6 mg/dL (8.5-10.5) 01/14/24 22:10 Total Bilirubin 0.4 mg/dL (0.15-1.2) 01/14/24 22:10 AST 75 U/L (0-32) H 01/14/24 22:10 ALT 20 U/L (0-33) 01/14/24 22:10 Alkaline Phosphatase 124 U/L (35-105) H 01/14/24 22:10 Troponin T Baseline < 6 ng/L (0-10) 01/14/24 22:10 Troponin T 120 Minute 6.00 ng/L (0-10) 01/14/24 12:10 Delta Troponin T 0 ABS# (0-10) 01/14/24 12:10 C-Reactive Protein 3.0 mg/L (0.0-4.9) 01/15/24 00:10 NT-Pro-B Natriuret Pep < 36 pg/mL (0-125) 01/14/24 22:10 Total Protein 7.2 g/dL (6.6-8.7) 01/14/24 22:10 Albumin 4.6 g/dL (3.5-5.2) 01/14/24 22:10 Globulin 2.6 g/dL (1.3-4.6) 01/14/24 22:10 Lipase 24 U/L (13-60) 01/15/24 00:10 All radiology interpretation(s) finalized by discharge Discharge Plan Discharge Patient Disposition: Home Clinical Impression: Epigastric abdominal pain Condition: Stable Prescriptions: No Action loperamide 2 mg capsule 2 mg PO TID PRN (Reason: Diarrhea) venlafaxine 150 mg capsule,extended release 24hr 300 mg PO DAILY Qty: 60 2RF mirtazapine 15 mg tablet 15 mg PO BEDTIME Qty: 30 2RF rosuvastatin 40 mg tablet 40 mg PO DAILY Qty: 30 5RF diclofenac sodium 75 mg tablet,delayed release (DR/EC) 75 mg PO BID PRN (Reason: pain) Qty: 60 5RF (DME) BD Luer-Kennedy Syringe 3 mL 25 gauge x 1 syringe See Rx Instructions .ROUTE .COMPLEX Qty: 4 2RF Dose Instruction: USE DIRECTED Rx Instructions: USE DIRECTED ergocalciferol (vitamin D2) 1,250 mcg (50,000 unit) capsule See Rx Instructions .ROUTE .COMPLEX Qty: 12 0RF Dose Instruction: Take 1 capsule by mouth once a week Rx Instructions: Take 1 capsule by mouth once a week cyanocobalamin (vitamin B-12) 1,000 mcg/mL solution See Rx Instructions .ROUTE .COMPLEX Qty: 1 2RF Dose Instruction: INJECT 1 ML ONCE EVERY MONTH Rx Instructions: INJECT 1 ML ONCE EVERY MONTH cholecalciferol (vitamin D3) [Vitamin D3] 50 mcg (2,000 unit) Capsule 50 mcg PO DAILY clonidine HCl 0.1 mg tablet 0.1 mg PO Q8H PRN (Reason: hypertensive emergency) Qty: 14 0RF Rx Instructions: As needed for blood pressure >140 on top number or >100 on bottom number Discharge Orders: Discharge ED (Routine); Ordered 01/15/24 Ordered By: Cordell Restrepo Referrals: Ana M Putnam FNP [Primary Care Provider] - 1-3 days Patient Instructions: Abdominal Pain (ED), Opioid Safety, Pain Management Activity Restrictions/Additional Instructions: Return for worsening pain despite treatment, vomiting liquids or medications, increasing shortness of breath, fever, other concerning symptoms. Coding Level of Care Code ED Supervisor [employer] Department for Cristian Stovall
[2024-01-14 22:45] LABS: Alanine Aminotransferase 20 U/L (0-33); Albumin Level 4.6 g/dL (3.5-5.2); Alkaline Phosphatase 124 U/L (35-105); Anion Gap 15.8 (5-19); Aspartate Amino Transferase 75 U/L (0-32); Blood Urea Nitrogen 12 mg/dL (6-20); Calcium 9.6 mg/dL (8.5-10.5); Carbon Dioxide 25 mmol/L (22-29); Chloride 102 mmol/L (98-107); Creatinine Clr Calc Pharmacy 96.1632; Globulin 2.6 g/dL (1.3-4.6); Glomerular Filtration Rate 103.4 mL/min (90-130); Glucose 92 mg/dL (65-115); NT Pro B Type Natriuretic Pept < 36 pg/mL (0-125); Osmolality Calculated 287 mOsm/kg (285-295); Potassium 3.8 mmol/L (3.5-5.1); Sodium 139 mmol/L (136-145); Total Bilirubin 0.4 mg/dL (0.15-1.2); Total Protein 7.2 g/dL (6.6-8.7)
[2024-01-14 22:47] VITALS: PULSE 76; RESP 16; O2SAT 100
[2024-01-14 23:00] VITALS: BP 148/94; PULSE 77; RESP 17; O2SAT 100
[2024-01-14] MEDS: lidocaine 2% viscous 15 ML, aluminum-mag hydrox-simethicon 30 ML, sucralfate oral liq 1 GM PO (23:34)
--- NOTE | 2024-01-14 23:53 | ECG_ITS ---
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 Measurements Intervals [place] Rate: 77 P: 55 UT: 153 QRS: -1 QRSD: 104 T: 45 QT: 371 QTc: 420 Interpretive Statements SINUS RHYTHM LOW QRS VOLTAGE IN PRECORDIAL LEADS [QRS DEFLECTION < 1.0 mV IN CHEST LEADS] Compared to ECG 01/14/2024 21:31:10 Low QRS voltage now present Electronically Signed On 01-15-2024 18:56:19 CDT by Cruz Martinez M.D. [email or web address]
[2024-01-15 00:02] VITALS: RESP 26; O2SAT 100
[2024-01-15] MEDS: morphine 4 mg/mL SDV 1 mL IVP (00:02)
[2024-01-15] MEDS: ketorolac 30 mg/mL INJ IVP (00:03)
[2024-01-15] MEDS: ondansetron 2 mg/ML SDV 2 mL 4 MG IVP (00:03)
[2024-01-15 00:22] VITALS: BP 162/122; PULSE 80; RESP 20; O2SAT 99
[2024-01-15 00:30] VITALS: BP 149/99; PULSE 86; RESP 20; O2SAT 98
--- NOTE | 2024-01-15 00:53 | PC.NURSE ---
pt did not recieve second dose of morphine due to driving herself home.
[2024-01-15 00:57] LABS: Troponin 5 2HR Delta 0 ABS# (0-10)
[2024-01-15 01:00] LABS: Lipase 24 U/L (13-60)
[2024-01-15 01:43] VITALS: BP 162/94; PULSE 87; RESP 21; O2SAT 92
== END 2024-01-15 01:45 | disposition home or self-care (01) ==
PROVIDERS: Emergency Provider Emergency Medicine; PCP Nurse Practitioner Family
DX: R10.13 Epigastric pain (principal); E11.9 Type 2 diabetes mellitus without complications; E78.5 Hyperlipidemia, unspecified; I10 Essential (primary) hypertension; Z85.3 Personal history of malignant neoplasm of breast; Z95.0 Presence of cardiac pacemaker
CPT/HCPCS: 71045; 80053; 83690; 83880; 84484; 85025; 86140; 93005; 96374; 96375; 99285; J1885; J2270; J2405

== ENCOUNTER 2024-02-03 22:01 | Emergency (ER) | payer MEDICAID, SELFPAY ==
[2024-02-03 22:05] VITALS: BP 157/92; PULSE 87; RESP 16; TEMP 36.4; O2SAT 99
--- NOTE | 2024-02-03 22:23 | ED_ITS ---
HPI - Fall General: Chief Complaint: Fall Stated Complaint: FALL Time Seen by Provider: 02/03/24 22:22 History of Present Illness: 58-year-old female comes in today for co mplaints of injury to the left knee and right ankle. Patient was chasing after her dog when she tripped over a shoe. Patient landed on her knee and had also twisted her right ankle. Patient appears nontoxic. No obvious deformity is noted. Review of Systems General: Reports: 10 or more systems reviewed and unremarkable except in HPI and below Musc: Reports: extremity pain PFSH ED PFSH: Medical History B12 deficiency Type 2 diabetes mellitus Psychiatric care Chronic diarrhea Allergic rhinitis delivery delivered Bradycardia Nausea vomiting and diarrhea Vitamin D deficiency Anxiety and depression Hyperlipidemia Hypertension History of breast cancer Pacemaker Surgical History History of cholecystectomy H/O bilateral mastectomy History of appendectomy Gastric bypass status for obesity History of partial hysterectomy Family History Mother COPD with asthma Postsurgical cardiac pacemaker in situ Hypertension Hyperlipidemia Lung disease Colitis Anxiety and depression Brother Anxiety and depression Diabetes Psychiatric illness schizophrenia Father Liver cirrhosis Cancer Social History Smoking and tobacco/nicotine status: never used tobacco/nicotine Second hand smoke exposure: No Alcohol intake: never Substance/Drug Use: never Household members: spouse and children Marital status: Current occupational status: disabled Current gender identity: Female Special christopher needs: No Agree to transfusion: Yes Physical Exam Const: COMMON NORMALS: alert HENMT: COMMON NORMALS: atraumatic HEAD & SCALP: atraumatic Neck/C-Spine: COMMON NORMALS: full ROM Resp: COMMON NORMALS: normal respiratory effort Cardio: COMMON NORMALS: regular rate and regular rhythm RATE: regular rate RHYTHM: regular rhythm Back/Pelvis: COMMON NORMALS: thoracic and lumbar spine normal to inspection Extremity: RIGHT LOWER EXTREMITY: Yes foot & digits (Medial tenderness mild swelling) LEFT LOWER EXTREMITY: Yes knee joint (Anterior bruising) Neuro: SENSORIUM/ORIENTATION: Yes alert Course Vital Signs: Vital signs: Vital Signs Temperature 97.6 F 02/03/24 22:05 Pulse Rate 87 02/03/24 22:05 Respiratory Rate 16 02/03/24 22:05 Blood Pressure 157/92 02/03/24 22:05 Pulse Oximetry 99 02/03/24 22:05 Oxygen Delivery Me thod Room Air 02/03/24 22:05 MDM - Fall Medical Decision Making Patient comes in today for injury to the right ankle and left knee. On exam there is some bruising and swelling to the anterior left knee. Patient also has mild swelling and tenderness to to the right medial ankle. Differential diagnosis includes fracture, sprain, contusion. X-rays noted no acute fractures. Reviewed exam with patient and family with recommendations for treatment and follow-up. Patient and family both reported understanding and agreed to plan for further evaluation and treatment. XR interpretation done by ED provider, pending radiology final review Discharge Plan Discharge Patient Disposition: Home Clinical Impression: Fall from slip, trip, or stumble Qualifiers: Encounter type: initial encounter Qualified Code(s): W01.0XXA - Fall on same level from slipping, tripping and stumbling without subsequent striking against object, initial encounter Contusion of knee Qualifiers: Encounter type: initial encounter Laterality: left Qualified Code(s): S80.02XA - Contusion of left knee, initial encounter Right ankle sprain Qualifiers: Encounter type: initial encounter Involved ligament of ankle: unspecified ligament Qualified Code(s): S93.401A - Sprain of unspecified ligament of right ankle, initial encounter Condition: Stable Prescriptions: No Action loperamide 2 mg capsule 2 mg PO TID PRN (Reason: Diarrhea) venlafaxine 150 mg capsule,extended release 24hr 300 mg PO DAILY Qty: 60 2RF mirtazapine 15 mg tablet 15 mg PO BEDTIME Qty: 30 2RF rosuvastatin 40 mg tablet 40 mg PO DAILY Qty: 30 5RF diclofenac sodium 75 mg tablet,delayed release (DR/EC) 75 mg PO BID PRN (Reason: pain) Qty: 60 5RF (DME) BD Luer-Kennedy Syringe 3 mL 25 gauge x 1 syringe See Rx Instructions .ROUTE .COMPLEX Qty: 4 2RF Dose Instruction: USE DIRECTED Rx Instructions: USE DIRECTED ergocalciferol (vitamin D2) 1,250 mcg (50,000 unit) capsule See Rx Instructions .ROUTE .COMPLEX Qty: 12 0RF Dose Instruction: Take 1 capsule by mouth once a week Rx Instructions: Take 1 capsule by mouth once a week cyanocobalamin (vitamin B-12) 1,000 mcg/mL solution See Rx Instructions .ROUTE .COMPLEX Qty: 1 2RF Dose Instruction: INJECT 1 ML ONCE EVERY MONTH Rx Instructions: INJECT 1 ML ONCE EVERY MONTH cholecalciferol (vitamin D3) [Vitamin D3] 50 mcg (2,000 unit) Capsule 50 mcg PO DAILY clonidine HCl 0.1 mg tablet 0.1 mg PO Q8H PRN (Reason: hypertensive emergency) Qty: 14 0RF Rx Instructions: As needed for blood pressure >140 on top number or >100 on bottom number Discharge Orders: Discharge ED (Routine); Ordered 02/03/24 Ordered By: Kristian Modi Referrals: Nikole Roland APN [Primary Care Provider] - Discharge Diet: Usual diet Discharge Activity: Increase activity as tolerated Patient Instructions: Ankle Sprain (ED) Activity Restrictions/Additional Instructions: Home and rest. Activity as tolerated. Ice packs to the area for comfort and pain. Use acetaminophen and ibuprofen as needed for further pain relief. Follow-up with primary care for further instructions. Return to ED for new concerns. Coding Level of Care Code ED Equal Opportunity Representative for Cristian Stovall
--- NOTE | 2024-02-03 22:41 | XRR_ITS ---
PROCEDURE INFORMATION: Exam: XR Right Ankle Exam date and time: 02/03/2024 11:04 PM Age: 58 years old Clinical indication: Injury or trauma; Other: RT ankle pain post fall TECHNIQUE: Imaging protocol: Radiologic exam of the right ankle. Views: 3 or more views. COMPARISON: No relevant prior studies available. FINDINGS: Bones/joints: Normal alignment. No acute fracture. Incidental note made of heel spur. Soft tissues: Soft tissue swelling. XR/XR ankle RT min 3V* [id number] IMPRESSION: No acute fracture.
--- NOTE | 2024-02-03 22:41 | XRR_ITS ---
PROCEDURE INFORMATION: Exam: XR Left Knee Exam date and time: 02/03/2024 11:04 PM Age: 58 years old Clinical indication: Injury or trauma; Fall; Other: Lt knee pain; Additional info: Left knee pain post fall TECHNIQUE: Imaging protocol: Radiologic exam of the left knee. Views: 3 views. COMPARISON: No relevant prior studies available. FINDINGS: Bones/joints: Intact alignment. No acute fracture. Moderate tricompartmental degenerative change. No joint effusion. Soft tissues: Normal. XR/XR knee LT 3V* [id number] IMPRESSION: No acute fracture.
== END 2024-02-04 00:39 | disposition home or self-care (01) ==
PROVIDERS: Emergency Provider Nurse Practitioner Family; PCP Nurse Practitioner Family
DX: S80.02XA Contusion of left knee, initial encounter (principal); S93.401A Sprain of unspecified ligament of right ankle, initial encounter; E11.9 Type 2 diabetes mellitus without complications; E78.5 Hyperlipidemia, unspecified; I10 Essential (primary) hypertension; Z85.3 Personal history of malignant neoplasm of breast; Z95.0 Presence of cardiac pacemaker; W18.09XA Striking against other object with subsequent fall, initial encounter
CPT/HCPCS: 73562; 73610; 99284

== ENCOUNTER 2024-02-24 21:50 | Emergency (ER) | payer MEDICAID, SELFPAY ==
[2024-02-24 22:18] VITALS: BP 148/91; PULSE 98; RESP 17; TEMP 36.6; O2SAT 96; BMI 27.4
[2024-02-24] MEDS: fluticasone nasal spray 16gm Btl 2 SPRAY NASAL (23:18)
[2024-02-24] MEDS: cetirizine 10 mg Tablet PO (23:18)
[2024-02-24 23:23] VITALS: RESP 16
--- NOTE | 2024-02-24 23:26 | ED_ITS ---
Documented by User: TON Sheehan 02/24/24 23:29 HPI - Ear Problem General: Chief complaint: Ear Stated complaint: Ear Pain Time Seen by Provider: 02/24/24 22:23 Source: patient Mode of arrival: ambulatory Limitations: no limitations History of Present Illness: Patient is a 58-year-old female presenting to the emergency department complaining of bilateral ear pain. Patient states she was recently treated with antibiotics for lymphadenitis, but has since finished this and states her ear pain is still present. She denies any fevers or other symptoms at this time. She does note that she used to have allergies and she used to take Flonase and Zyrtec, but has not done so recently or tried this. MD Complaint: ear pain Location: bilateral Duration: constant Severity: moderate Associated symptoms: Reports ear or mastoid pain; Denies fever(s), headache(s) or neck pain Review of Systems General: Reports: 10 or more systems reviewed and unremarkable except in HPI and below Const: Denies: fever(s), chills or fatigue Eyes: Denies: change in vision ENMT: Reports: ear or mastoid pain; Denies: throat pain or nasal discharge Card: Denies: chest pain, palpitations, swelling of feet/ankles or lightheadedness Resp: Denies: dyspnea, productive cough or wheezing GI: Denies: abdominal pain, nausea, vomiting, diarrhea or constipation : Denies: flank pain, difficulty voiding, dysuria or urinary frequency Musc: Denies: neck pain, back pain or joint pain Skin/Breast: Denies: rash Neuro: Denies: headache(s), numbness in extremities or weakness in extremities PFS ED PFSH: Medical History B12 deficiency Type 2 diabetes mellitus Psychiatric care Chronic diarrhea Allergic rhinitis delivery delivered Bradycardia Nausea vomiting and diarrhea Vitamin D deficiency Anxiety and depression Hyperlipidemia Hypertension History of breast cancer Pacemaker Surgical History History of cholecystectomy H/O bilateral mastectomy History of appendectomy Gastric bypass status for obesity History of partial hysterectomy Family History Mother COPD with asthma Postsurgical cardiac pacemaker in situ Hypertension Hyperlipidemia Lung disease Colitis Anxiety and depression Brother Anxiety and depression Diabetes Psychiatric illness schizophrenia Father Liver cirrhosis Cancer Social History Smoking and tobacco/nicotine status: never used tobacco/nicotine Second hand smoke exposure: No Alcohol intake: never Substance/Drug Use: never Household members: spouse and children Marital status: Current occupational status: disabled Current gender identity: Female Special christopher needs: No Agree to transfusion: Yes Physical Exam Const: COMMON NORMALS: no acute distress and healthy appearing GENERAL APPEARANCE: cooperative, comfortable and well developed HENMT: COMMON NORMALS: normocephalic, atraumatic, hearing grossly normal bilaterally, external ears normal, EAC's normal, Normal external nose present and Normal nasal mucous membranes and turbinates present HEAD & SCALP: normal to inspection, normocephalic and atraumatic FACE & SINUS: normal facial exam and sinuses nontender NOSE: Normal external nose present, Normal nares present, No nasal polyps present and Normal nasal mucous membranes and turbinates present EXTERNAL EAR: Yes external ears normal EXTERNAL AUDITORY CANAL: EAC's normal TYMPANIC MEMBRANE: TM abnormal TM laterality: bilateral bullous and with fluid behind the TM MOUTH: Normal oral and palatal mucosa present THROAT: posterior oropharynx normal and tonsils normal Eye: COMMON NORMALS: EOMs intact bilaterally, conjunctivae normal and normal visual kumar by confrontation GENERAL EYE: appearance normal, both eyes and all related structures CONJUNCTIVA: Yes conjunctivae normal Neck/C-Spine: COMMON NORMALS: full ROM, no lymphadenopathy, supple and no meningeal signs GENERAL: Yes normal visual inspection Chest: COMMONS NORMALS: normal inspection of the chest Resp: COMMON NORMALS: normal respiratory effort and clear to auscultation bilaterally EFFORT & INSPECTION: Yes able to speak in complete sentences AUSCULTATION: clear to auscultation bilaterally Cardio: COMMON NORMALS: regular rate, regular rhythm, S1 normal heart sound present and S2 normal heart sound present RATE: regular rate RHYTHM: regular rhythm HEART SOUNDS: S1 normal heart sound present, S2 normal heart sound present, no gallops, no murmurs and no rubs Extremity: COMMON NORMALS: normal to inspection, full ROM and capillary refill normal Neuro: MENINGEAL SIGNS: Yes no meningeal signs Skin: COMMON NORMALS: no rashes or lesions noted GENERAL SKIN EXAM: no rashes or lesions noted Course Vital Signs: Vital signs: Vital Signs Temperature 98 F 04/27/24 22:18 Pulse Rate 98 02/24/24 22:18 Respiratory Rate 16 02/24/24 23:23 Blood Pressure 148/91 02/24/24 22:18 Pulse Oximetry 96 02/24/24 22:18 Oxygen Delivery Me thod Room Air 02/24/24 22:18 MDM - Ear Medical Decision Making Patient seen for bilateral ear pain status post antibiotic treatment for lymphadenitis. Vitals normal on arrival she has remained stable. Nontoxic- appearing. Her bilateral tympanic membranes were bolus with presence of fluid behind the ear, resembling allergic findings. Pain similar to eustachian tube dysfunction and I will treat her with Flonase and Zyrtec. No need for extra testing at this time. I did inform her that if her symptoms persisted to return for reevaluation. Patient agrees with this plan and will be discharged home after receiving first dose of Zyrtec and Flonase. No radiology studies performed this visit Discharge Plan Discharge Patient Disposition: Home Clinical Impression: Allergic rhinitis Qualifiers: Allergic rhinitis trigger: unspecified Allergic rhinitis seasonality: unspecified Qualified Code(s): J30.9 - Allergic rhinitis, unspecified ETD (eustachian tube dysfunction) Qualifiers: Laterality: bilateral Qualified Code(s): H69.93 - Unspecified Eustachian tube disorder, bilateral Condition: Stable Prescriptions: New Zyrtec 10 mg tablet 10 mg PO DAILY PRN (Reason: allergy symptoms) Qty: 20 0RF Flonase Allergy Relief 50 mcg/actuation spray,suspension 2 spray intranasal DAILY PRN (Reason: allergy symptoms) Qty: 16 0RF Rx Instructions: administer into each nostril No Action loperamide 2 mg capsule 2 mg PO TID PRN (Reason: Diarrhea) venlafaxine 150 mg capsule,extended release 24hr 300 mg PO DAILY Qty: 60 2RF mirtazapine 15 mg tablet 15 mg PO BEDTIME Qty: 30 2RF rosuvastatin 40 mg tablet 40 mg PO DAILY Qty: 30 5RF diclofenac sodium 75 mg tablet,delayed release (DR/EC) 75 mg PO BID PRN (Reason: pain) Qty: 60 5RF (DME) BD Luer-Kennedy Syringe 3 mL 25 gauge x 1 syringe See Rx Instructions .ROUTE .COMPLEX Qty: 4 2RF Dose Instruction: USE DIRECTED Rx Instructions: USE DIRECTED ergocalciferol (vitamin D2) 1,250 mcg (50,000 unit) capsule See Rx Instructions .ROUTE .COMPLEX Qty: 12 0RF Dose Instruction: Take 1 capsule by mouth once a week Rx Instructions: Take 1 capsule by mouth once a week cyanocobalamin (vitamin B-12) 1,000 mcg/mL solution See Rx Instructions .ROUTE .COMPLEX Qty: 1 2RF Dose Instruction: INJECT 1 ML ONCE EVERY MONTH Rx Instructions: INJECT 1 ML ONCE EVERY MONTH cholecalciferol (vitamin D3) [Vitamin D3] 50 mcg (2,000 unit) Capsule 50 mcg PO DAILY clonidine HCl 0.1 mg tablet 0.1 mg PO Q8H PRN (Reason: hypertensive emergency) Qty: 14 0RF Rx Instructions: As needed for blood pressure >140 on top number or >100 on bottom number Discharge Orders: Discharge ED (Routine); Ordered 02/24/24 Ordered By: Claudy Smith Referrals: Nikole Roland APN [Primary Care Provider] - Discharge Diet: Usual diet Discharge Activity: Increase activity as tolerated Patient Instructions: Allergies (ED) Activity Restrictions/Additional Instructions: Zyrtec as prescribed. Flonase. Avoid potential triggers. Follow-up with your primary care provider as needed. Return if your symptoms worsen or do not improve. Coding Level of Care Code ED High School Art Teacher for Chg Fwd Documented by User: Jan Dougherty DO 02/29/24 06:04 HPI - Ear Problem General: Chief complaint: Ear Stated complaint: Ear Pain Time Seen by Provider: 02/24/24 22:23 [facility] ED PFSH: Medical History B12 deficiency Type 2 diabetes mellitus Psychiatric care Chronic diarrhea Allergic rhinitis delivery delivered Bradycardia Nausea vomiting and diarrhea Vitamin D deficiency Anxiety and depression Hyperlipidemia Hypertension History of breast cancer Pacemaker Surgical History History of cholecystectomy H/O bilateral mastectomy History of appendectomy Gastric bypass status for obesity History of partial hysterectomy Family History Mother COPD with asthma Postsurgical cardiac pacemaker in situ Hypertension Hyperlipidemia Lung disease Colitis Anxiety and depression Brother Anxiety and depression Diabetes Psychiatric illness schizophrenia Father Liver cirrhosis Cancer Social History Smoking and tobacco/nicotine status: never used tobacco/nicotine Second hand smoke exposure: No Alcohol intake: never Substance/Drug Use: never Household members: spouse and children Marital status: Current occupational status: disabled Current gender identity: Female Special christopher needs: No Agree to transfusion: Yes Course Vital Signs: Vital signs: Vital Signs Temperature 98 F 02/24/24 22:18 Pulse Rate 98 02/24/24 22:18 Respiratory Rate 16 02/24/24 23:23 Blood Pressure 148/91 02/24/24 22:18 Pulse Oximetry 96 02/24/24 22:18 Oxygen Delivery Me thod Room Air 02/24/24 22:18 [facility] - Ear Medical Decision Making Patient seen for bilateral ear pain status post antibiotic treatment for lymphadenitis. Vitals normal on arrival she has remained stable. Nontoxic- appearing. Her bilateral tympanic membranes were bolus with presence of fluid behind the ear, resembling allergic findings. Pain similar to eustachian tube dysfunction and I will treat her with Flonase and Zyrtec. No need for extra testing at this time. I did inform her that if her symptoms persisted to return for reevaluation. Patient agrees with this plan and will be discharged home after receiving first dose of Zyrtec and Flonase. Chart reviewed Discharge Plan Discharge Patient Disposition: Home Clinical Impression: Allergic rhinitis Qualifiers: Allergic rhinitis trigger: unspecified Allergic rhinitis seasonality: unspecified Qualified Code(s): J30.9 - Allergic rhinitis, unspecified ETD (eustachian tube dysfunction) Qualifiers: Laterality: bilateral Qualified Code(s): H69.93 - Unspecified Eustachian tube disorder, bilateral Condition: Stable Prescriptions: New Zyrtec 10 mg tablet 10 mg PO DAILY PRN (Reason: allergy symptoms) Qty: 20 0RF Flonase Allergy Relief 50 mcg/actuation spray,suspension 2 spray intranasal DAILY PRN (Reason: allergy symptoms) Qty: 16 0RF Rx Instructions: administer into each nostril No Action loperamide 2 mg capsule 2 mg PO TID PRN (Reason: Diarrhea) venlafaxine 150 mg capsule,extended release 24hr 300 mg PO DAILY Qty: 60 2RF mirtazapine 15 mg tablet 15 mg PO BEDTIME Qty: 30 2RF rosuvastatin 40 mg tablet 40 mg PO DAILY Qty: 30 5RF diclofenac sodium 75 mg tablet,delayed release (DR/EC) 75 mg PO BID PRN (Reason: pain) Qty: 60 5RF (DME) BD Luer-Kennedy Syringe 3 mL 25 gauge x 1 syringe See Rx Instructions .ROUTE .COMPLEX Qty: 4 2RF Dose Instruction: USE DIRECTED Rx Instructions: USE DIRECTED ergocalciferol (vitamin D2) 1,250 mcg (50,000 unit) capsule See Rx Instructions .ROUTE .COMPLEX Qty: 12 0RF Dose Instruction: Take 1 capsule by mouth once a week Rx Instructions: Take 1 capsule by mouth once a week cyanocobalamin (vitamin B-12) 1,000 mcg/mL solution See Rx Instructions .ROUTE .COMPLEX Qty: 1 2RF Dose Instruction: INJECT 1 ML ONCE EVERY MONTH Rx Instructions: INJECT 1 ML ONCE EVERY MONTH cholecalciferol (vitamin D3) [Vitamin D3] 50 mcg (2,000 unit) Capsule 50 mcg PO DAILY clonidine HCl 0.1 mg tablet 0.1 mg PO Q8H PRN (Reason: hypertensive emergency) Qty: 14 0RF Rx Instructions: As needed for blood pressure >140 on top number or >100 on bottom number Discharge Orders: Discharge ED (Routine); Ordered 02/24/24 Ordered By: Claudy Smith Referrals: Nikole Roland APN [Primary Care Provider] - Discharge Diet: Usual diet Discharge Activity: Increase activity as tolerated Patient Instructions: Allergies (ED) Activity Restrictions/Additional Instructions: Zyrtec as prescribed. Flonase. Avoid potential triggers. Follow-up with your primary care provider as needed. Return if your symptoms worsen or do not improve. Coding Level of Care Code ED High School Art Teacher for Cristian Stovall
== END 2024-02-24 23:27 | disposition home or self-care (01) ==
PROVIDERS: Emergency Provider Physician Assistant; PCP Nurse Practitioner Family
DX: J30.9 Allergic rhinitis, unspecified (principal); H69.93 Unspecified Eustachian tube disorder, bilateral; E11.9 Type 2 diabetes mellitus without complications; I10 Essential (primary) hypertension; E78.5 Hyperlipidemia, unspecified; Z85.3 Personal history of malignant neoplasm of breast; Z95.0 Presence of cardiac pacemaker
CPT/HCPCS: 99283

== ENCOUNTER 2024-05-04 18:20 | Emergency (ER) | payer MEDICAID, SELFPAY ==
[2024-05-04 18:26] VITALS: BP 148/89; PULSE 88; RESP 17; TEMP 36.6; O2SAT 99; BMI 27.8
--- NOTE | 2024-05-04 18:49 | ED_ITS ---
HPI - Skin/Abscess/Foreign Bdy General: Chief complaint: Skin/Abscess/Foreign Body Stated complaint: Tick Bite Time Seen by Provider: 05/04/24 18:35 History of Present Illness: 58-year-old female comes in today for co mplaints of tick bites to the abdominal wall. Patient has 2 tick bites noted. Wound is well-healed. The other 1 remains slightly erythematous. Patient appears nontoxic. Patient appears no acute distress. Review of Systems General: Reports: 10 or more systems reviewed and unremarkable except in HPI and below Skin/Breast: Reports: new lesions PFSH ED PFSH: Medical History (Updated 05/04/24 @ 18:54 by LILLY Thao) B12 deficiency Type 2 diabetes mellitus Chronic diarrhea Allergic rhinitis delivery delivered Bradycardia Nausea vomiting and diarrhea Vitamin D deficiency Anxiety and depression Hyperlipidemia Hypertension History of breast cancer Pacemaker Surgical History History of cholecystectomy H/O bilateral mastectomy History of appendectomy Gastric bypass status for obesity History of partial hysterectomy Family History Mother COPD with asthma Postsurgical cardiac pacemaker in situ Hypertension Hyperlipidemia Lung disease Colitis Anxiety and depression Brother Anxiety and depression Diabetes Psychiatric illness schizophrenia Father Liver cirrhosis Cancer Social History Smoking and tobacco/nicotine status: never used tobacco/nicotine Second hand smoke exposure: No Alcohol intake: never Substance/Drug Use: never Household members: spouse and children Marital status: Current occupational status: disabled Current gender identity: Female Special christopher needs: No Agree to transfusion: Yes Physical Exam Const: COMMON NORMALS: alert HENMT: COMMON NORMALS: normocephalic HEAD & SCALP: normocephalic Neck/C-Spine: COMMON NORMALS: full ROM Resp: COMMON NORMALS: normal respiratory effort Cardio: COMMON NORMALS: regular rate RATE: regular rate Back/Pelvis: COMMON NORMALS: thoracic and lumbar spine normal to inspection Extremity: COMMON NORMALS: full ROM Neuro: SENSORIUM/ORIENTATION: Yes alert Skin: LESIONS: lesion noted (2 lesions the abdominal wall superficial healing) Course Vital Signs: Vital signs: Vital Signs Temperature 97.8 F 05/04/24 18:26 Pulse Rate 88 05/04/24 18:26 Respiratory Rate 17 05/04/24 18:26 Blood Pressure 148/89 05/04/24 18:26 Pulse Oximetry 99 05/04/24 18:26 Oxygen Delivery Me thod Room Air 05/04/24 18:26 MDM - Skin/Abscess/Foreign Bdy Medicial Decision Making 58-year-old female comes in for concerns of 2 lesions to the abdominal wall. 1 lesion is well-healed and the second lesion appears to be healing. Vital signs are normal. Differential diagnosis includes not limited to insect bite, infected wound, worried well. No signs of severe illness or injury is noted. Will go ahead and cover patient with doxycycline due to the recent tick bites. Recommend follow-up with primary care return to ER for worsening symptoms. No radiology studies performed this visit Discharge Plan Discharge Patient Disposition: Home Clinical Impression: Tick bite of abdomen Qualifiers: Encounter type: initial encounter Qualified Code(s): S30.861A - Insect bite (nonvenomous) of abdominal wall, initial encounter Condition: Stable Prescriptions: New doxycycline hyclate 100 mg capsule 100 mg PO BID 7 Days Qty: 14 0RF No Action loperamide 2 mg capsule 2 mg PO TID PRN (Reason: Diarrhea) venlafaxine 150 mg capsule,extended release 24hr 300 mg PO DAILY Qty: 60 2RF mirtazapine 15 mg tablet 15 mg PO BEDTIME Qty: 30 2RF rosuvastatin 40 mg tablet 40 mg PO DAILY Qty: 30 5RF diclofenac sodium 75 mg tablet,delayed release (DR/EC) 75 mg PO BID PRN (Reason: pain) Qty: 60 5RF (DME) BD Luer-Kennedy Syringe 3 mL 25 gauge x 1 syringe See Rx Instructions .ROUTE .COMPLEX Qty: 4 2RF Dose Instruction: USE DIRECTED Rx Instructions: USE DIRECTED ergocalciferol (vitamin D2) 1,250 mcg (50,000 unit) capsule See Rx Instructions .ROUTE .COMPLEX Qty: 12 0RF Dose Instruction: Take 1 capsule by mouth once a week Rx Instructions: Take 1 capsule by mouth once a week cyanocobalamin (vitamin B-12) 1,000 mcg/mL solution See Rx Instructions .ROUTE .COMPLEX Qty: 1 2RF Dose Instruction: INJECT 1 ML ONCE EVERY MONTH Rx Instructions: INJECT 1 ML ONCE EVERY MONTH cholecalciferol (vitamin D3) [Vitamin D3] 50 mcg (2,000 unit) Capsule 50 mcg PO DAILY Zyrtec 10 mg tablet 10 mg PO DAILY PRN (Reason: allergy symptoms) Qty: 20 0RF Flonase Allergy Relief 50 mcg/actuation spray,suspension 2 spray intranasal DAILY PRN (Reason: allergy symptoms) Qty: 16 0RF Rx Instructions: administer into each nostril clonidine HCl 0.1 mg tablet 0.1 mg PO Q8H PRN (Reason: hypertensive emergency) Qty: 14 0RF Rx Instructions: As needed for blood pressure >140 on top number or >100 on bottom number Discharge Orders: Discharge ED (Routine); Ordered 05/04/24 Ordered By: Kristian Modi Referrals: Nikole Roland APN [Primary Care Provider] - Discharge Diet: Usual diet Discharge Activity: Increase activity as tolerated Patient Instructions: Insect Bite or Sting (ED) Activity Restrictions/Additional Instructions: Follow-up with primary care in 1 week for recheck. Coding Level of Care Code ED Director Of Dementia Operations for Cristian Stovall
[2024-05-04 19:04] VITALS: BP 136/91; PULSE 81; RESP 16; TEMP 36.6; O2SAT 100
[2024-05-04] MEDS: doxycycline 100 mg Tablet PO (19:06)
== END 2024-05-04 19:05 | disposition home or self-care (01) ==
PROVIDERS: Emergency Provider Nurse Practitioner Family; PCP Nurse Practitioner Family
DX: S30.861A Insect bite (nonvenomous) of abdominal wall, initial encounter (principal); E11.9 Type 2 diabetes mellitus without complications; I10 Essential (primary) hypertension; E78.5 Hyperlipidemia, unspecified; Z79.899 Other long term (current) drug therapy; W57.XXXA Bitten or stung by nonvenomous insect and other nonvenomous arthropods, initial encounter
CPT/HCPCS: 99283

== ENCOUNTER 2024-05-26 22:09 | Emergency (ER) | payer MEDICAID, SELFPAY ==
[2024-05-26 22:11] VITALS: BP 156/85; PULSE 66; RESP 16; TEMP 36.5; O2SAT 100; BMI 28.0
--- NOTE | 2024-05-26 22:42 | W.ED.SOB ---
HPI - SOB/Dyspnea General: Chief Complaint: Shortness of Breath/Dyspnea Stated Complaint: SOB Time Seen by Provider: 05/26/24 22:41 History of Present Illness: HPI Narrative: 58-year-old female comes in today for complaints of cough and shortness of breath. Patient states that she felt her pacemaker module moved with coughing and feels it may have displaced. Patient appears nontoxic. Patient appears in no acute distress. Patient's oxygen saturation is 100% on 2 L per nasal cannula. Review of Systems General: Reports: 10 or more systems reviewed and unremarkable except in HPI and below PFSH ED PFSH: Medical History (Updated 05/26/24 @ 23:40 by LILLY Thao) B12 deficiency Type 2 diabetes mellitus Chronic diarrhea Allergic rhinitis delivery delivered Bradycardia Nausea vomiting and diarrhea Vitamin D deficiency Anxiety and depression Hyperlipidemia Hypertension History of breast cancer Pacemaker Surgical History History of cholecystectomy H/O bilateral mastectomy History of appendectomy Gastric bypass status for obesity History of partial hysterectomy Family History Mother COPD with asthma Postsurgical cardiac pacemaker in situ Hypertension Hyperlipidemia Lung disease Colitis Anxiety and depression Brother Anxiety and depression Diabetes Psychiatric illness schizophrenia Father Liver cirrhosis Cancer Social History Smoking and tobacco/nicotine status: never used tobacco/nicotine Second hand smoke exposure: No Alcohol intake: never Substance/Drug Use: never Household members: spouse and children Marital status: Current occupational status: disabled Current gender identity: Female Special christopher needs: No Agree to transfusion: Yes Physical Exam Const: COMMON NORMALS: alert HENMT: COMMON NORMALS: normocephalic HEAD & SCALP: normocephalic Neck/C-Spine: COMMON NORMALS: full ROM Resp: COMMON NORMALS: normal respiratory effort and clear to auscultation bilaterally AUSCULTATION: clear to auscultation bilaterally Cardio: COMMON NORMALS: regular rate and regular rhythm RATE: regular rate RHYTHM: regular rhythm Extremity: COMMON NORMALS: no pedal edema Neuro: SENSORIUM/ORIENTATION: Yes alert Skin: COMMON NORMALS: turgor normal GENERAL SKIN EXAM: turgor normal Course Vital Signs: Vital signs: Vital Signs Temperature 97.7 F 05/26/24 22:11 Pulse Rate 66 05/26/24 22:11 Respiratory Rate 16 05/26/24 22:11 Blood Pressure 156/85 05/26/24 22:11 Pulse Oximetry 100 05/26/24 22:11 Oxygen Delivery Me thod Nasal Cannula 05/26/24 22:11 Oxygen Flow Rate 2 05/26/24 22:11 MDM - SOB/Dyspnea Medical Decision Making 58-year-old female comes in today for complaints of cough and believing her pacemaker nodule has moved. Patient appears nontoxic. Patient appears in no acute distress. Respirations are even lungs are clear to auscultation. Pacemaker insertion area is warm dry without any signs of redness or induration. Differential diagnosis malingering, COPD, pacemaker failure. Chest x-ray was normal. EKG showed a normal firing pacemaker. Reviewed exam with patient with recommendations for treatment and follow-up. Patient reported understanding agreed to plan. Lab Data Labs/Radiology: Radiology Impressions Chest X-Ray 05/26/24 22:43 IMPRESSION: No acute pulmonary findings. All radiology interpretation(s) finalized by discharge Discharge Plan Discharge Patient Disposition: Home Clinical Impression: Pacemaker, Generalized anxiety disorder Cough Qualifiers: Cough type: other Qualified Code(s): R05.8 - Other specified cough Condition: Stable Prescriptions: No Action loperamide 2 mg capsule 2 mg PO TID PRN (Reason: Diarrhea) venlafaxine 150 mg capsule,extended release 24hr 300 mg PO DAILY Qty: 60 2RF mirtazapine 15 mg tablet 15 mg PO BEDTIME Qty: 30 2RF rosuvastatin 40 mg tablet 40 mg PO DAILY Qty: 30 5RF diclofenac sodium 75 mg tablet,delayed release (DR/EC) 75 mg PO BID PRN (Reason: pain) Qty: 60 5RF (DME) BD Luer-Kennedy Syringe 3 mL 25 gauge x 1 syringe See Rx Instructions .ROUTE .COMPLEX Qty: 4 2RF Dose Instruction: USE DIRECTED Rx Instructions: USE DIRECTED ergocalciferol (vitamin D2) 1,250 mcg (50,000 unit) capsule See Rx Instructions .ROUTE .COMPLEX Qty: 12 0RF Dose Instruction: Take 1 capsule by mouth once a week Rx Instructions: Take 1 capsule by mouth once a week cyanocobalamin (vitamin B-12) 1,000 mcg/mL solution See Rx Instructions .ROUTE .COMPLEX Qty: 1 2RF Dose Instruction: INJECT 1 ML ONCE EVERY MONTH Rx Instructions: INJECT 1 ML ONCE EVERY MONTH cholecalciferol (vitamin D3) [Vitamin D3] 50 mcg (2,000 unit) Capsule 50 mcg PO DAILY Zyrtec 10 mg tablet 10 mg PO DAILY PRN (Reason: allergy symptoms) Qty: 20 0RF Flonase Allergy Relief 50 mcg/actuation spray,suspension 2 spray intranasal DAILY PRN (Reason: allergy symptoms) Qty: 16 0RF Rx Instructions: administer into each nostril clonidine HCl 0.1 mg tablet 0.1 mg PO Q8H PRN (Reason: hypertensive emergency) Qty: 14 0RF Rx Instructions: As needed for blood pressure >140 on top number or >100 on bottom number Discharge Orders: Discharge ED (Routine); Ordered 05/26/24 Ordered By: Kristian Modi Referrals: Nikole Roland APN [Primary Care Provider] - Discharge Diet: Usual diet Discharge Activity: Increase activity as tolerated Activity Restrictions/Additional Instructions: Continue with routine care. Follow-up with primary care for further instructions. Return to ED for new concerns. Coding Level of Care Code ED Jacquard Twine Polisher Operator for Cristian Stovall
--- NOTE | 2024-05-26 22:43 | ECG_ITS ---
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 Measurements Intervals [place] Rate: 76 P: 230 FL: 179 QRS: -3 QRSD: 94 T: 44 QT: 361 QTc: 407 Interpretive Statements ELECTRONIC ATRIAL PACEMAKER INCOMPLETE RIGHT BUNDLE BRANCH BLOCK [90+ ms QRS DURATION, TERMINAL R IN V1/V2, 40+ ms S IN I/aVL/V4/V5/V6] Compared to ECG 01/15/2024 00:17:05 Incomplete right bundle-branch block now present Sinus rhythm no longer present Electronically Signed On 05-27-2024 7:52:31 CDT by Julian Crooks M.D. [id number]
--- NOTE | 2024-05-26 22:43 | XRR_ITS ---
PROCEDURE INFORMATION: Exam: XR Chest Exam date and time: 05/26/2024 10:47 PM Age: 58 years old Clinical indication: Shortness of breath; Prior surgery; Surgery date: 6+ months; Surgery type: Pacer. Mastectomy. Gastric. Patient HX: C/O SOB. ; Additional info: Short of breath TECHNIQUE: Imaging protocol: Radiologic exam of the chest. Views: 1 view. COMPARISON: CR (CHEST, ) 01/14/2024 10:21 PM FINDINGS: Tubes, catheters and devices: Left pectoral pacemaker leads overlie the right atrium and right ventricle. Lungs: No consolidation. Pleural spaces: Unremarkable. No pleural effusion. No pneumothorax. Heart/Mediastinum: Unremarkable. No cardiomegaly. Bones/joints: Unremarkable. Gastrointestinal tract: Gastric band surgery. XR/XR chest 1V portable [id number] IMPRESSION: No acute pulmonary findings.
[2024-05-26 23:59] VITALS: PULSE 60; RESP 18; O2SAT 100
== END 2024-05-26 23:58 | disposition home or self-care (01) ==
PROVIDERS: Emergency Provider Nurse Practitioner Family; PCP Nurse Practitioner Family
DX: R05.8 Other specified cough (principal); Z95.0 Presence of cardiac pacemaker; F41.1 Generalized anxiety disorder; E11.9 Type 2 diabetes mellitus without complications; E78.5 Hyperlipidemia, unspecified; I10 Essential (primary) hypertension; Z85.3 Personal history of malignant neoplasm of breast
CPT/HCPCS: 71045; 93005; 99284

== ENCOUNTER 2024-06-06 23:49 | Emergency (ER) | payer MEDICAID, SELFPAY ==
[2024-06-06 23:50] VITALS: BP 166/101; PULSE 73; RESP 18; TEMP 36.7; O2SAT 100; BMI 27.8
--- NOTE | 2024-06-07 00:09 | ED_ITS ---
Documented by User: LILLY Thao 06/08/24 13:26 HPI - Extremity Problem 2 General: Chief complaint: Extremity Injury, Lower Stated complaint: Rt leg pain Time Seen by Provider: 06/06/24 23:54 History of Present Illness: 58-year-old female comes in today with c omplaints of right leg pain. Patient appears nontoxic. Patient reports today she was walking she noticed some increased swelling that has resolved since she is put her legs up for this evening. Patient is concerned due to the persistent pain in her knee and radiates down to her foot. Patient appears nontoxic. Patient appears no acute distress. Review of Systems 2 General: Reports: 10 or more systems reviewed and unremarkable except in HPI and below PFSH ED 2 PFSH: Medical History (Updated 06/07/24 @ 02:20 by Tavo Vital DO) B12 deficiency Type 2 diabetes mellitus Chronic diarrhea Allergic rhinitis delivery delivered Bradycardia Nausea vomiting and diarrhea Vitamin D deficiency Anxiety and depression Hyperlipidemia Hypertension History of breast cancer Pacemaker Surgical History History of cholecystectomy H/O bilateral mastectomy History of appendectomy Gastric bypass status for obesity History of partial hysterectomy Family History Mother COPD with asthma Postsurgical cardiac pacemaker in situ Hypertension Hyperlipidemia Lung disease Colitis Anxiety and depression Brother Anxiety and depression Diabetes Psychiatric illness schizophrenia Father Liver cirrhosis Cancer Social History Smoking and tobacco/nicotine status: never used tobacco/nicotine Second hand smoke exposure: No Alcohol intake: never Substance/Drug Use: never Household members: spouse and children Marital status: Current occupational status: disabled Current gender identity: Female Special christopher needs: No Agree to transfusion: Yes Physical Exam 2 Const: COMMON NORMALS: alert HENMT: COMMON NORMALS: normocephalic HEAD & SCALP: normocephalic Neck/C-Spine: COMMON NORMALS: full ROM Resp: COMMON NORMALS: normal respiratory effort and clear to auscultation bilaterally AUSCULTATION: clear to auscultation bilaterally Cardio: COMMON NORMALS: regular rate and regular rhythm RATE: regular rate RHYTHM: regular rhythm GI: COMMON NORMALS: non-tender Back/Pelvis: COMMON NORMALS: thoracic and lumbar spine normal to inspection Extremity: COMMON NORMALS: full ROM Neuro: SENSORIUM/ORIENTATION: Yes alert Skin: COMMON NORMALS: turgor normal GENERAL SKIN EXAM: turgor normal Course 2 Vital Signs: Vital signs: Vital Signs Temperature 98.1 F 06/06/24 23:50 Pulse Rate 68 06/07/24 04:19 Respiratory Rate 16 06/07/24 04:19 Blood Pressure 147/103 06/07/24 04:19 Pulse Oximetry 100 06/07/24 04:19 MDM - Extremity (Nontraumatic) Medical Decision Making 58-year-old female comes in today for complaints of pain to the right leg. Patient reports pain radiates from her knee to her foot. Patient believes is secondary to an injury that occurred about 8 months ago. On exam patient appears nontoxic. No significant swelling or redness is noted. Differential diagnosis includes but not limited to DVT, sciatica, osteoarthritis of the knee, Achilles tendinitis. [address] Vital who agreed to assume care at the end of my shift. Lab Data 06/07/24 00:00 06/07/24 00:00 Radiology Impressions Knee X-Ray 06/07/24 00:12 IMPRESSION: No evidence of acute fracture or dislocation. Venous Duplex 06/07/24 00:30 IMPRESSION: No evidence of deep vein thrombosis. Laboratory Results WBC 5.43 10^3/uL (3.29-11.43) 06/07/24 00:00 RBC 4.02 10^6/uL (3.85-5.65) 06/07/24 00:00 Hgb 12.20 g/dL (11.27-16.99) 06/07/24 00:00 Hct 36.1 % (36-47) 06/07/24 00:00 MCV 89.8 fl (85-98) 06/07/24 00:00 MCH 30.3 pg (27-33) 06/07/24 00:00 MCHC 33.8 g/dL (30-55) 06/07/24 00:00 RDW 12.2 % (12.1-15.1) 06/07/24 00:00 Plt Count 165 10^3/cmm (157-399) 06/07/24 00:00 MPV 10.7 fL (7.4-10.4) H 06/07/24 00:00 Neut % (Auto) 48.2 % 06/07/24 00:00 Lymph % (Auto) 43.8 % 06/07/24 00:00 Sutter % (Auto) 5.3 % 06/07/24 00:00 Eos % (Auto) 1.8 % 06/07/24 00:00 Baso % (Auto) 0.7 % 06/07/24 00:00 Neut # (Auto) 2.61 10^3/uL (1.8-7.7) 06/07/24 00:00 Lymph # (Auto) 2.4 10^3/uL (0.8-4.8) 06/07/24 00:00 Sutter # (Auto) 0.3 10^3/uL (0.2-0.9) 06/07/24 00:00 Eos # (Auto) 0.1 10^3/uL (0.0-0.8) 06/07/24 00:00 Baso # (Auto) 0.0 10^3/uL (0.0-0.1) 06/07/24 00:00 Nucleated RBC % (auto) 0 % 06/07/24 00:00 Nucleated RBCs # 0.0 /100WBC 06/07/24 00:00 D-Dimer 1.11 ug/mLFEU (0-0.59) H 06/07/24 00:00 Sodium 141 mmol/L (136-145) 06/07/24 00:00 Potassium 3.9 mmol/L (3.5-5.1) 06/07/24 00:00 Chloride 104 mmol/L (98-107) 06/07/24 00:00 Carbon Dioxide 25 mmol/L (22-29) 06/07/24 00:00 Anion Gap 15.9 (5-19) 06/07/24 00:00 BUN 9 mg/dL (6-20) 06/07/24 00:00 Creatinine 0.7 mg/dL (0.5-0.9) 06/07/24 00:00 GFR Calculation 86.6 mL/min (90-130) L 06/07/24 00:00 Glucose 103 mg/dL (65-115) 06/07/24 00:00 Calculated Osmolality 291 mOsm/kg (285-295) 06/07/24 00:00 Calcium 9.0 mg/dL (8.5-10.5) 06/07/24 00:00 Total Bilirubin 0.3 mg/dL (0.15-1.2) 06/07/24 00:00 AST 12 U/L (0-32) 06/07/24 00:00 ALT 9 U/L (0-33) 06/07/24 00:00 Alkaline Phosphatase 85 U/L (35-105) 06/07/24 00:00 Total Protein 7.0 g/dL (6.6-8.7) 06/07/24 00:00 Albumin 4.2 g/dL (3.5-5.2) 06/07/24 00:00 Globulin 2.8 g/dL (1.3-4.6) 06/07/24 00:00 Discharge Plan Discharge Patient Disposition: Home Clinical Impression: Acute pain of right lower extremity Condition: Stable Prescriptions: No Action loperamide 2 mg capsule 2 mg PO TID PRN (Reason: Diarrhea) venlafaxine 150 mg capsule,extended release 24hr 300 mg PO DAILY Qty: 60 2RF mirtazapine 15 mg tablet 15 mg PO BEDTIME Qty: 30 2RF rosuvastatin 40 mg tablet 40 mg PO DAILY Qty: 30 5RF diclofenac sodium 75 mg tablet,delayed release (DR/EC) 75 mg PO BID PRN (Reason: pain) Qty: 60 5RF (DME) BD Luer-Kennedy Syringe 3 mL 25 gauge x 1 syringe See Rx Instructions .ROUTE .COMPLEX Qty: 4 2RF Dose Instruction: USE DIRECTED Rx Instructions: USE DIRECTED ergocalciferol (vitamin D2) 1,250 mcg (50,000 unit) capsule See Rx Instructions .ROUTE .COMPLEX Qty: 12 0RF Dose Instruction: Take 1 capsule by mouth once a week Rx Instructions: Take 1 capsule by mouth once a week cyanocobalamin (vitamin B-12) 1,000 mcg/mL solution See Rx Instructions .ROUTE .COMPLEX Qty: 1 2RF Dose Instruction: INJECT 1 ML ONCE EVERY MONTH Rx Instructions: INJECT 1 ML ONCE EVERY MONTH cholecalciferol (vitamin D3) [Vitamin D3] 50 mcg (2,000 unit) Capsule 50 mcg PO DAILY Zyrtec 10 mg tablet 10 mg PO DAILY PRN (Reason: allergy symptoms) Qty: 20 0RF Flonase Allergy Relief 50 mcg/actuation spray,suspension 2 spray intranasal DAILY PRN (Reason: allergy symptoms) Qty: 16 0RF Rx Instructions: administer into each nostril clonidine HCl 0.1 mg tablet 0.1 mg PO Q8H PRN (Reason: hypertensive emergency) Qty: 14 0RF Rx Instructions: As needed for blood pressure >140 on top number or >100 on bottom number Discharge Orders: Discharge ED (Routine); Ordered 06/07/24 Ordered By: Tavo Vital Referrals: Nikole Roland APN [Primary Care Provider] - 1 week Patient Instructions: Leg Pain (ED) Activity Restrictions/Additional Instructions: Thank you for choosing [facility] for your healthcare needs today. Please realize that you were seen in the emergency department and that we are providing you with an emergency medical screening exam and this may not be a complete and all exclusive of all testing and/or medical workup we may need to determine your element or severity of your illness. It is very important that you follow-up as instructed with your primary care provider or specialist for the additional evaluation and to discuss your medical treatment plan. You may return to the emergency department should you have concerns or if your condition changes or worsens in any way. Coding Level of Care Code ED Hand Woodworking Sander for Chg Fwd Documented by User: Tavo Vital DO 06/07/24 03:50 HPI - Extremity Problem 2 General: Chief complaint: Extremity Injury, Lower Stated complaint: Rt leg pain Time Seen by Provider: 06/06/24 23:54 PFSH ED 2 PFSH: Medical History (Updated 06/07/24 @ 02:20 by Tavo Vital DO) B12 deficiency Type 2 diabetes mellitus Chronic diarrhea Allergic rhinitis delivery delivered Bradycardia Nausea vomiting and diarrhea Vitamin D deficiency Anxiety and depression Hyperlipidemia Hypertension History of breast cancer Pacemaker Surgical History History of cholecystectomy H/O bilateral mastectomy History of appendectomy Gastric bypass status for obesity History of partial hysterectomy Family History Mother COPD with asthma Postsurgical cardiac pacemaker in situ Hypertension Hyperlipidemia Lung disease Colitis Anxiety and depression Brother Anxiety and depression Diabetes Psychiatric illness schizophrenia Father Liver cirrhosis Cancer Social History Smoking and tobacco/nicotine status: never used tobacco/nicotine Second hand smoke exposure: No Alcohol intake: never Substance/Drug Use: never Household members: spouse and children Marital status: Current occupational status: disabled Current gender identity: Female Special christopher needs: No Agree to transfusion: Yes Course 2 Vital Signs: Vital signs: Vital Signs Temperature 98.1 F 06/06/24 23:50 Pulse Rate 68 06/07/24 04:19 Respiratory Rate 16 06/07/24 04:19 Blood Pressure 147/103 06/07/24 04:19 Pulse Oximetry 100 06/07/24 04:19 MDM - Extremity (Nontraumatic) Medical Decision Making 58-year-old female comes in today for complaints of pain to the right leg. Patient reports pain radiates from her knee to her foot. Patient believes is secondary to an injury that occurred about 8 months ago. On exam patient appears nontoxic. No significant swelling or redness is noted. Differential diagnosis includes but not limited to DVT, sciatica, osteoarthritis of the knee, Achilles tendinitis. [address] Vital who agreed to assume care at the end of my shift. Lab work reviewed, knee x-ray reviewed, venous duplex ultrasound reviewed all essentially negative. This results was discussed with the patient. Patient will be discharged home. Lab Data 06/07/24 00:00 06/07/24 00:00 Radiology Impressions Knee X-Ray 06/07/24 00:12 IMPRESSION: No evidence of acute fracture or dislocation. Venous Duplex 06/07/24 00:30 IMPRESSION: No evidence of deep vein thrombosis. Laboratory Results WBC 5.43 10^3/uL (3.29-11.43) 06/07/24 00:00 RBC 4.02 10^6/uL (3.85-5.65) 06/07/24 00:00 Hgb 12.20 g/dL (11.27-16.99) 06/07/24 00:00 Hct 36.1 % (36-47) 06/07/24 00:00 MCV 89.8 fl (85-98) 06/07/24 00:00 MCH 30.3 pg (27-33) 06/07/24 00:00 MCHC 33.8 g/dL (30-55) 06/07/24 00:00 RDW 12.2 % (12.1-15.1) 06/07/24 00:00 Plt Count 165 10^3/cmm (157-399) 06/07/24 00:00 MPV 10.7 fL (7.4-10.4) H 06/07/24 00:00 Neut % (Auto) 48.2 % 06/07/24 00:00 Lymph % (Auto) 43.8 % 06/07/24 00:00 Sutter % (Auto) 5.3 % 06/07/24 00:00 Eos % (Auto) 1.8 % 06/07/24 00:00 Baso % (Auto) 0.7 % 06/07/24 00:00 Neut # (Auto) 2.61 10^3/uL (1.8-7.7) 06/07/24 00:00 Lymph # (Auto) 2.4 10^3/uL (0.8-4.8) 06/07/24 00:00 Sutter # (Auto) 0.3 10^3/uL (0.2-0.9) 06/07/24 00:00 Eos # (Auto) 0.1 10^3/uL (0.0-0.8) 06/07/24 00:00 Baso # (Auto) 0.0 10^3/uL (0.0-0.1) 06/07/24 00:00 Nucleated RBC % (auto) 0 % 06/07/24 00:00 Nucleated RBCs # 0.0 /100WBC 06/07/24 00:00 D-Dimer 1.11 ug/mLFEU (0-0.59) H 06/07/24 00:00 Sodium 141 mmol/L (136-145) 06/07/24 00:00 Potassium 3.9 mmol/L (3.5-5.1) 06/07/24 00:00 Chloride 104 mmol/L (98-107) 06/07/24 00:00 Carbon Dioxide 25 mmol/L (22-29) 06/07/24 00:00 Anion Gap 15.9 (5-19) 06/07/24 00:00 BUN 9 mg/dL (6-20) 06/07/24 00:00 Creatinine 0.7 mg/dL (0.5-0.9) 06/07/24 00:00 GFR Calculation 86.6 mL/min (90-130) L 06/07/24 00:00 Glucose 103 mg/dL (65-115) 06/07/24 00:00 Calculated Osmolality 291 mOsm/kg (285-295) 06/07/24 00:00 Calcium 9.0 mg/dL (8.5-10.5) 06/07/24 00:00 Total Bilirubin 0.3 mg/dL (0.15-1.2) 06/07/24 00:00 AST 12 U/L (0-32) 06/07/24 00:00 ALT 9 U/L (0-33) 06/07/24 00:00 Alkaline Phosphatase 85 U/L (35-105) 06/07/24 00:00 Total Protein 7.0 g/dL (6.6-8.7) 06/07/24 00:00 Albumin 4.2 g/dL (3.5-5.2) 06/07/24 00:00 Globulin 2.8 g/dL (1.3-4.6) 06/07/24 00:00 All radiology interpretation(s) finalized by discharge Discharge Plan Discharge Patient Disposition: Home Clinical Impression: Acute pain of right lower extremity Condition: Stable Prescriptions: No Action loperamide 2 mg capsule 2 mg PO TID PRN (Reason: Diarrhea) venlafaxine 150 mg capsule,extended release 24hr 300 mg PO DAILY Qty: 60 2RF mirtazapine 15 mg tablet 15 mg PO BEDTIME Qty: 30 2RF rosuvastatin 40 mg tablet 40 mg PO DAILY Qty: 30 5RF diclofenac sodium 75 mg tablet,delayed release (DR/EC) 75 mg PO BID PRN (Reason: pain) Qty: 60 5RF (DME) BD Luer-Kennedy Syringe 3 mL 25 gauge x 1 syringe See Rx Instructions .ROUTE .COMPLEX Qty: 4 2RF Dose Instruction: USE DIRECTED Rx Instructions: USE DIRECTED ergocalciferol (vitamin D2) 1,250 mcg (50,000 unit) capsule See Rx Instructions .ROUTE .COMPLEX Qty: 12 0RF Dose Instruction: Take 1 capsule by mouth once a week Rx Instructions: Take 1 capsule by mouth once a week cyanocobalamin (vitamin B-12) 1,000 mcg/mL solution See Rx Instructions .ROUTE .COMPLEX Qty: 1 2RF Dose Instruction: INJECT 1 ML ONCE EVERY MONTH Rx Instructions: INJECT 1 ML ONCE EVERY MONTH cholecalciferol (vitamin D3) [Vitamin D3] 50 mcg (2,000 unit) Capsule 50 mcg PO DAILY Zyrtec 10 mg tablet 10 mg PO DAILY PRN (Reason: allergy symptoms) Qty: 20 0RF Flonase Allergy Relief 50 mcg/actuation spray,suspension 2 spray intranasal DAILY PRN (Reason: allergy symptoms) Qty: 16 0RF Rx Instructions: administer into each nostril clonidine HCl 0.1 mg tablet 0.1 mg PO Q8H PRN (Reason: hypertensive emergency) Qty: 14 0RF Rx Instructions: As needed for blood pressure >140 on top number or >100 on bottom number Discharge Orders: Discharge ED (Routine); Ordered 06/07/24 Ordered By: Tavo Vital Referrals: Nikole Roland APN [Primary Care Provider] - 1 week Patient Instructions: Leg Pain (ED) Activity Restrictions/Additional Instructions: Thank you for choosing [facility] for your healthcare needs today. Please realize that you were seen in the emergency department and that we are providing you with an emergency medical screening exam and this may not be a complete and all exclusive of all testing and/or medical workup we may need to determine your element or severity of your illness. It is very important that you follow-up as instructed with your primary care provider or specialist for the additional evaluation and to discuss your medical treatment plan. You may return to the emergency department should you have concerns or if your condition changes or worsens in any way. Coding Level of Care Code ED Hand Woodworking Sander for Cristian Stovall
--- NOTE | 2024-06-07 00:12 | XRR_ITS ---
PROCEDURE INFORMATION: Exam: XR Right Knee Exam date and time: 06/07/2024 12:32 AM Age: 58 years old Clinical indication: Pain; Knee; Right; Additional info: Knee pain TECHNIQUE: Imaging protocol: Radiologic exam of the right knee. Views: 3 views. COMPARISON: CR XR ankle RT min 3V* [id number] 02/03/2024 11:04 PM FINDINGS: Bones/joints: Mild osseous demineralization. No evidence of acute fracture or dislocation. Tricompartmental degenerative change. No joint effusion. Soft tissues: The soft tissues are within normal limits. XR/XR knee RT 3V* [id number] IMPRESSION: No evidence of acute fracture or dislocation.
[2024-06-07 00:17] LABS: Basophils % 0.7 %; Eosinophils # 0.1 10^3/uL (0.0-0.8); Eosinophils % 1.8 %; Hematocrit 36.1 % (36-47); Lymphocytes # 2.4 10^3/uL (0.8-4.8); Lymphocytes % 43.8 %; Mean Corpuscular HGB Conc 33.8 g/dL (30-55); Mean Corpuscular Hemoglobin 30.3 pg (27-33); Mean Corpuscular Volume 89.8 fl (85-98); Mean Platelet Volume 10.7 fL (7.4-10.4); Monocytes # 0.3 10^3/uL (0.2-0.9); Monocytes % 5.3 %; Neutrophils # 2.61 10^3/uL (1.8-7.7); Neutrophils % 48.2 %; Nucleated Red Blood Cells % 0 %; Platelet Count 165 10^3/cmm (157-399); Red Blood Count 4.02 10^6/uL (3.85-5.65); Red Cell Distribution Width 12.2 % (12.1-15.1); White Blood Count 5.43 10^3/uL (3.29-11.43)
[2024-06-07 00:28] LABS: D Dimer 1.11 ug/mLFEU (0-0.59)
[2024-06-07 00:30] LABS: Alanine Aminotransferase 9 U/L (0-33); Albumin Level 4.2 g/dL (3.5-5.2); Alkaline Phosphatase 85 U/L (35-105); Anion Gap 15.9 (5-19); Aspartate Amino Transferase 12 U/L (0-32); Blood Urea Nitrogen 9 mg/dL (6-20); Carbon Dioxide 25 mmol/L (22-29); Chloride 104 mmol/L (98-107); Creatinine Clr Calc Pharmacy 81.6544; Globulin 2.8 g/dL (1.3-4.6); Glomerular Filtration Rate 86.6 mL/min (90-130); Glucose 103 mg/dL (65-115); Osmolality Calculated 291 mOsm/kg (285-295); Potassium 3.9 mmol/L (3.5-5.1); Sodium 141 mmol/L (136-145); Total Bilirubin 0.3 mg/dL (0.15-1.2)
--- NOTE | 2024-06-07 00:30 | USR_ITS ---
PROCEDURE INFORMATION: Exam: US Duplex Right Lower Extremity Veins, Limited Exam date and time: 06/07/2024 12:47 AM Age: 58 years old Clinical indication: Edema, localized; Lower extremity, right; Additional info: Leg pain swelling TECHNIQUE: Imaging protocol: Real-time duplex ultrasound of the right extremity with 2-D londono scale, color Doppler flow and spectral waveform analysis including responses to compression and other maneuvers (when performed) with image documentation. Limited exam was focused on the right lower extremity veins. COMPARISON: CR XR knee RT 3V* [id number] 06/07/2024 12:32 AM FINDINGS: Right deep veins: Unremarkable. The common femoral, femoral, proximal profunda femoral and popliteal veins are patent without thrombus. Normal Doppler waveforms. Normal compressibility and/or augmentation response. Superficial veins: Greater saphenous vein at the saphenofemoral junction is patent without thrombus. Soft tissues: Unremarkable. US/[place] [id number] IMPRESSION: No evidence of deep vein thrombosis.
[2024-06-07 00:56] VITALS: PULSE 70; RESP 16; O2SAT 99
[2024-06-07 04:19] VITALS: BP 147/103; PULSE 68; RESP 16; O2SAT 100
== END 2024-06-07 04:21 | disposition home or self-care (01) ==
PROVIDERS: Emergency Provider Nurse Practitioner Family; PCP Nurse Practitioner Family
DX: M79.604 Pain in right leg (principal); E11.9 Type 2 diabetes mellitus without complications; E78.5 Hyperlipidemia, unspecified; I10 Essential (primary) hypertension; Z85.3 Personal history of malignant neoplasm of breast; Z95.0 Presence of cardiac pacemaker
CPT/HCPCS: 73562; 80053; 85025; 85378; 93971; 99284

== ENCOUNTER 2024-07-31 12:27 | Outpatient (CLI) | payer OTHER, MEDICAID, SELFPAY ==
--- NOTE | 2024-07-31 12:30 | XR_ITS ---
WS: [id number] DEXA (DUAL ENERGY X-RAY ABSORPTIOMETRY) Bone mineral density was performed using a [employer] machine. HISTORY: OSTEOPOROSIS COMPARISON: None available. Lumbar spine BMD (L1-L4): 0.981 g/cm2 T score: -1.7 Z score: -0.8 Total hip BMD: Left: 0.670 g/cm2. T score: -2.7 Z score: -2.0 Right: 0.654 g/cm2. T score: -2.8 Z score: -2.1 10 year probability of a major osteoporotic fracture is 10.8%. XR/XR DEXA axial skeleton* 62100 IMPRESSION: OSTEOPOROSIS based upon the WHO classification for females.
== END 2024-07-31 12:28 | disposition home or self-care (01) ==
LOC: RAD 12:27
PROVIDERS: PCP Nurse Practitioner Family; Visit Provider Nurse Practitioner Family
DX: M81.8 Other osteoporosis without current pathological fracture (principal)
CPT/HCPCS: 77080

== ENCOUNTER 2024-08-02 19:33 | Emergency (ER) | payer OTHER, MEDICAID, SELFPAY ==
[2024-08-02 19:50] VITALS: BP 117/76; PULSE 81; RESP 16; TEMP 36.7; O2SAT 100; BMI 27.8
--- NOTE | 2024-08-02 19:53 | ECG_ITS ---
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 Measurements Intervals [place] Rate: 80 P: 234 PA: 151 QRS: 6 QRSD: 97 T: 55 QT: 369 QTc: 428 Interpretive Statements ELECTRONIC ATRIAL PACEMAKER LOW QRS VOLTAGE IN PRECORDIAL LEADS [QRS DEFLECTION < 1.0 mV IN CHEST LEADS] ABNORMAL RHYTHM ECG Compared to ECG 05/26/2024 23:29:49 Low QRS voltage now present Incomplete right bundle-branch block no longer present Electronically Signed On 08-03-2024 21:01:04 CDT by Cruz Martinez M.D. [id number]
--- NOTE | 2024-08-02 20:09 | XRR_ITS ---
PROCEDURE INFORMATION: Exam: XR Chest Exam date and time: 08/02/2024 9:03 PM Age: 58 years old Clinical indication: Prior surgery; Surgery date: 6+ months; Surgery type: Pacer. Bilat mastectomy; Patient HX: C/O hypotension; Additional info: Dizziness TECHNIQUE: Imaging protocol: Radiologic exam of the chest. Views: 1 view. COMPARISON: CR XR chest 1V portable [id number] 05/26/2024 10:47 PM FINDINGS: Tubes, catheters and devices: Stable left pectoral pacer. Lungs: Unremarkable. No consolidation. Pleural spaces: Unremarkable. No pleural effusion. No pneumothorax. Heart/Mediastinum: Stable cardiomediastinal silhouette. Bones/joints: Unremarkable. Gastrointestinal tract: Prior gastric bypass surgery. Organs: Cholecystectomy clips. XR/XR chest 1V portable [id number] IMPRESSION: No acute cardiopulmonary findings.
[2024-08-02 21:57] LABS: Basophils % 0.4 %; Eosinophils # 0.1 10^3/uL (0.0-0.8); Eosinophils % 1.1 %; Hematocrit 39.3 % (36-47); Lymphocytes # 0.9 10^3/uL (0.8-4.8); Lymphocytes % 20.7 %; Mean Corpuscular HGB Conc 32.1 g/dL (30-55); Mean Corpuscular Hemoglobin 30.9 pg (27-33); Mean Corpuscular Volume 96.3 fl (85-98); Mean Platelet Volume 9.9 fL (7.4-10.4); Monocytes # 0.2 10^3/uL (0.2-0.9); Monocytes % 4.6 %; Neutrophils # 3.32 10^3/uL (1.8-7.7); Nucleated Red Blood Cells % 0 %; Platelet Count 168 10^3/cmm (157-399); Red Blood Count 4.08 10^6/uL (3.85-5.65); Red Cell Distribution Width 12.2 % (12.1-15.1); White Blood Count 4.55 10^3/uL (3.29-11.43)
[2024-08-02 22:12] LABS: Blood Urea Nitrogen 11 mg/dL (6-20); Calcium 8.9 mg/dL (8.5-10.5); Carbon Dioxide 23 mmol/L (22-29); Chloride 104 mmol/L (98-107); Creatinine Clr Calc Pharmacy 78.4142; Glomerular Filtration Rate 86.6 mL/min (90-130); Glucose 98 mg/dL (65-115); Osmolality Calculated 285 mOsm/kg (285-295); Sodium 138 mmol/L (136-145)
[2024-08-02 22:13] LABS: Anion Gap 15.1 (5-19); Potassium 4.1 mmol/L (3.5-5.1)
[2024-08-02 23:47] VITALS: BP 117/86
[2024-08-02 23:55] VITALS: BP 140/86; PULSE 70; RESP 16; O2SAT 100
--- NOTE | 2024-08-03 00:03 | ED_ITS ---
HPI - Dizziness 2 General: Chief Complaint: Dizziness Stated Complaint: BP Keeps Dropping Time Seen by Provider: 08/02/24 23:15 History of Present Illness: HPI Narrative: 58-year-old female comes in today with judit bates. Patient has recently had her medication of lisinopril decreased from 10 to 20 mg to help treat the dizziness. Patient came in tonight wondering if she needed to have the medication decrease more. Patient appears nontoxic. Patient appears no acute distress. Patient ambulates without difficulty. Dizziness occurs when patient changes positions. Related Data Home Medications Medication Instructions Recorded Confirmed bupropion HCl 75 mg tablet 75 mg PO DAILY 07/29/24 07/29/24 lisinopril 10 mg tablet 10 mg PO DAILY 07/29/24 07/29/24 Previous Rx's Medication Instructions Recorded carbamide peroxide 6.5 % ear drops 5 drp otic (ear) BID 4 days #15 mL 08/03/24 (Debrox) meclizine 12.5 mg tablet 12.5 mg PO TID PRN dizziness #20 08/03/24 tabs Allergies Allergy/AdvReac Type Severity Reaction Status Date / Time amoxicillin Allergy Unknown Verified 08/02/24 19:55 nitrofurantoin Allergy Unknown Verified 08/02/24 19:55 [From Macrobid] Penicillins Allergy Unknown Verified 08/02/24 19:55 trazodone Allergy ADR-Nightma Verified 08/02/24 19:55 re Review of Systems 2 General: Reports: 10 or more systems reviewed and unremarkable except in HPI and below PFSH ED 2 PFSH: Medical History (Updated 08/03/24 @ 00:21 by LILLY Thao) Psychiatric care B12 deficiency Type 2 diabetes mellitus Chronic diarrhea Allergic rhinitis delivery delivered Bradycardia Nausea vomiting and diarrhea Vitamin D deficiency Anxiety and depression Hyperlipidemia Hypertension History of breast cancer Pacemaker Surgical History History of cholecystectomy H/O bilateral mastectomy History of appendectomy Gastric bypass status for obesity History of partial hysterectomy Family History Mother COPD with asthma Postsurgical cardiac pacemaker in situ Hypertension Hyperlipidemia Lung disease Colitis Anxiety and depression Brother Anxiety and depression Diabetes Psychiatric illness schizophrenia Father Liver cirrhosis Cancer Social History Smoking and tobacco/nicotine status: never used tobacco/nicotine Second hand smoke exposure: No Alcohol intake: never Substance/Drug Use: never Household members: spouse and children Marital status: Current occupational status: disabled Current gender identity: Female Special christopher needs: No Agree to transfusion: Yes Physical Exam 2 Const: COMMON NORMALS: alert HENMT: COMMON NORMALS: normocephalic HEAD & SCALP: normocephalic E XTERNAL AUDITORY CANAL: other (Cerumen in bilateral ear canals worse on the left than right) THROAT: posterior oropharynx normal Resp: COMMON NORMALS: normal respiratory effort and clear to auscultation bilaterally AUSCULTATION: clear to auscultation bilaterally Cardio: COMMON NORMALS: regular rate and regular rhythm RATE: regular rate RHYTHM: regular rhythm GI: COMMON NORMALS: non-tender Back/Pelvis: COMMON NORMALS: thoracic and lumbar spine normal to inspection Extremity: COMMON NORMALS: normal to inspection and no pedal edema Neuro: SENSORIUM/ORIENTATION: Yes alert Skin: COMMON NORMALS: turgor normal GENERAL SKIN EXAM: turgor normal Course 2 Vital Signs: Vital signs: Vital Signs Temperature 98.1 F 08/02/24 19:50 Pulse Rate 70 08/02/24 23:55 Respiratory Rate 16 08/02/24 23:55 Blood Pressure 131/85 08/03/24 00:11 Pulse Oximetry 100 08/02/24 23:55 Oxygen Delivery Me thod Room Air 08/02/24 23:55 MDM - Dizziness Medical Decision Making 58-year-old female comes in today for complaints of dizziness with movement. Patient appears nontoxic. Bilateral ear canals have cerumen in them. Posterior pharynx is normal. Blood pressure was 117/76. Differential diagnosis orthostatic hypotension, due to adverse drug effect, BPV. Orthostatic blood pressures were negative. Patient does have air wax in both ear canals with the worst being on the left. The patient probably has some BPV secondary to the cerumen impaction in the left ear. Start patient on some Debrox and give her some meclizine to use as needed for nausea and dizziness. Patient reports understanding agreed to plan. Patient should follow-up with primary care in 3 to 5 days for recheck and further irrigation of the ear to remove the remainder of the wax. Lab Data 08/02/24 21:41 08/02/24 21:41 Radiology Impressions Chest X-Ray 08/02/24 20:09 IMPRESSION: No acute cardiopulmonary findings. Laboratory Results WBC 4.55 10^3/uL (3.29-11.43) 08/02/24 21:41 RBC 4.08 10^6/uL (3.85-5.65) 08/02/24 21:41 Hgb 12.60 g/dL (11.27-16.99) 08/02/24 21:41 Hct 39.3 % (36-47) 08/02/24 21:41 MCV 96.3 fl (85-98) 08/02/24 21:41 MCH 30.9 pg (27-33) 08/02/24 21:41 MCHC 32.1 g/dL (30-55) 08/02/24 21:41 RDW 12.2 % (12.1-15.1) 08/02/24 21:41 Plt Count 168 10^3/cmm (157-399) 08/02/24 21:41 MPV 9.9 fL (7.4-10.4) 08/02/24 21:41 Neut % (Auto) 73.0 % 08/02/24 21:41 Lymph % (Auto) 20.7 % 08/02/24 21:41 [place] % (Auto) 4.6 % 08/02/24 21:41 Eos % (Auto) 1.1 % 08/02/24 21:41 Baso % (Auto) 0.4 % 08/02/24 21:41 Neut # (Auto) 3.32 10^3/uL (1.8-7.7) 08/02/24 21:41 Lymph # (Auto) 0.9 10^3/uL (0.8-4.8) 08/02/24 21:41 [place] # (Auto) 0.2 10^3/uL (0.2-0.9) 08/02/24 21:41 Eos # (Auto) 0.1 10^3/uL (0.0-0.8) 08/02/24 21:41 Baso # (Auto) 0.0 10^3/uL (0.0-0.1) 08/02/24 21:41 Nucleated RBC % (auto) 0 % 08/02/24 21:41 Nucleated RBCs # 0.0 /100WBC 08/02/24 21:41 Sodium 138 mmol/L (136-145) 08/02/24 21:41 Potassium 4.1 mmol/L (3.5-5.1) 08/02/24 21:41 Chloride 104 mmol/L (98-107) 08/02/24 21:41 Carbon Dioxide 23 mmol/L (22-29) 08/02/24 21:41 Anion Gap 15.1 (5-19) 08/02/24 21:41 BUN 11 mg/dL (6-20) 08/02/24 21:41 Creatinine 0.7 mg/dL (0.5-0.9) 08/02/24 21:41 GFR Calculation 86.6 mL/min (90-130) L 08/02/24 21:41 Glucose 98 mg/dL (65-115) 08/02/24 21:41 Calculated Osmolality 285 mOsm/kg (285-295) 08/02/24 21:41 Calcium 8.9 mg/dL (8.5-10.5) 08/02/24 21:41 Urine Color Yellow (Yellow) 08/02/24 23:59 Urine Appearance Cloudy (CLEAR) A 08/02/24 23:59 Urine pH 6.5 (5-7) 08/02/24 23:59 Ur Specific [place] 1.020 (1.005-1.030) 08/02/24 23:59 Urine Protein Negative (Negative) 08/02/24 23:59 Urine Glucose (UA) Negative (Normal) 08/02/24 23:59 Urine Ketones Negative (Negative) 08/02/24 23:59 Urine Blood Negative (Negative) 08/02/24 23:59 Urine Nitrate Negative (Negative) 08/02/24 23:59 Urine Bilirubin Negative (Negative) 08/02/24 23:59 Urine Urobilinogen 4.0 mg/dL (Negative) H 08/02/24 23:59 Ur Leukocyte Esterase 3+ (Negative) A 08/02/24 23:59 Urine RBC 0-2 /hpf (0-2) 08/02/24 23:59 Urine WBC 51-100 /hpf (0-5) H 08/02/24 23:59 Ur Squamous Epith Cells 11-20 /hpf (0-5) 08/02/24 23:59 Urine Bacteria 2+ /hpf (NONE) H 08/02/24 23:59 Hyaline Casts 0-4 /lpf H 08/02/24 23:59 All radiology interpretation(s) finalized by discharge Discharge Plan Discharge Patient Disposition: Home Clinical Impression: Benign paroxysmal positional vertigo Qualifiers: Laterality: left Qualified Code(s): H81.12 - Benign paroxysmal vertigo, left ear Cerumen impaction Qualifiers: Laterality: left Qualified Code(s): H61.22 - Impacted cerumen, left ear Condition: Stable Prescriptions: New meclizine 12.5 mg tablet 12.5 mg PO TID PRN (Reason: dizziness) Qty: 20 0RF Debrox 6.5 % drops 5 drp otic (ear) BID 4 Days Qty: 15 0RF No Action bupropion HCl 75 mg tablet 75 mg PO DAILY lisinopril 10 mg tablet 10 mg PO DAILY Discharge Orders: Discharge ED (Routine); Ordered 08/03/24 Ordered By: Kristian oMdi Referrals: Rocio Eckert FNP [Primary Care Provider] - Discharge Diet: Usual diet Discharge Activity: Increase activity as tolerated Patient Instructions: Benign Paroxysmal Positional Vertigo (ED) Activity Restrictions/Additional Instructions: Take meclizine as needed for dizziness. Use eardrops 5 drops in both ears for the next 4 to 5 days to help with wax removal. Have the ears rechecked in 5 days for recheck. Do not use Q-tips in the ears and only use a soft cloth to gently go around the earlobe and ear canal. Do not insert anything into the ear canal. You may notice drainage of a brownish-red material from your ear which is a dissolve the earwax. Coding Level of Care Code ED Electron Microscopist for Cristian Stovall
[2024-08-03 00:11] VITALS: BP 131/85; BP 141/80
[2024-08-03 00:16] LABS: Bilirubin Urine Negative (Negative); Blood Urine Negative (Negative); Glucose Urine UA Negative (Normal); Ketones Urine Negative (Negative); Leukocyte Esterase Urine 3+ (Negative); Nitrate Urine Negative (Negative); Protein Urine Negative (Negative); Urine Appearance Cloudy (CLEAR); Urine Color Yellow (Yellow); pH Urine 6.5 (5-7)
[2024-08-03 00:22] LABS: Add Urine Microscopic? YES; Bacteria Urine 2+ /hpf; Hyaline Casts Urine 0-4 /lpf; RBC Urine 0-2 /hpf (0-2); WBC Urine 51-100 /hpf (0-5)
[2024-08-03 00:24] LABS: Add Urine Culture? Yes
[2024-08-03] MEDS: meclizine 25 mg tablet PO (00:28)
[2024-08-03 00:39] VITALS: BP 128/75; PULSE 76; RESP 16; O2SAT 100
== END 2024-08-03 00:43 | disposition home or self-care (01) ==
PROVIDERS: Emergency Medicine; Emergency Provider Nurse Practitioner Family; PCP Nurse Practitioner Family
DX: H81.12 Benign paroxysmal vertigo, left ear (principal); H61.22 Impacted cerumen, left ear; E11.9 Type 2 diabetes mellitus without complications; E78.5 Hyperlipidemia, unspecified; I10 Essential (primary) hypertension; Z85.3 Personal history of malignant neoplasm of breast; Z95.0 Presence of cardiac pacemaker
CPT/HCPCS: 36415; 71045; 80048; 81001; 85025; 87086; 93005; 99285; J8597

== ENCOUNTER 2024-08-27 06:01 | Outpatient (CLI) | payer OTHER, MEDICAID, SELFPAY ==
--- NOTE | 2024-08-27 10:30 | USCV_ITS ---
Danielle Hooker Age: 59 Gender: F : 1965 Exam Date: 08/27/2024 06:13 Ordering Phys: Pasha Flood MD Technologist: Exam [place] [facility] [place] Indication: dizzy Risk Factors: Previous Vascular Surgery: Right Brachial BP: / Left Brachial BP: / Right Left Velocity (cm/s) Spectral Plaque Velocity (cm/s) Spectral Plaque Syst/Diast Broadening Syst/Diast Broadening 73.70/ 20.60 Prox CCA 82.20 / 30.10 75.00/ 27.10 Mid CCA 69.10 / 21.50 74.90/ 23.10 Distal CCA 71.30 / 23.60 60.60/ 12.80 Prox ICA 50.20 / 20.60 69.10/ 21.50 Mid ICA 75.40 / 32.50 84.30/ 32.30 Distal ICA 87.30 / 33.90 110.90 ECA 69.10 1.10 ICA/CCA 1.20 Antegrade Vertebral Antegrade 54.00/ 15.00 cm/s 44.30/ 10.20 cm/s Bi Subclavian Bi 64.80 56.00 FINDINGS Comparison: none available. No significant elevation of systolic or diastolic velocities. Waveforms are normal. No significant amount of calcified plaque or intimal thickening identified. CONCLUSIONS Normal carotid doppler ultrasound. Dr. Lety Stahl DO (Electronically Signed) Final Date: 27 August 2024 09:39 S
== END 2024-08-27 06:02 | disposition home or self-care (01) ==
LOC: RAD 06:02
PROVIDERS: PCP Nurse Practitioner Family; Visit Provider Nurse Practitioner Family
DX: R42 Dizziness and giddiness (principal)
CPT/HCPCS: 93880

== ENCOUNTER 2024-10-29 06:54 | Day surgery (SDC) | payer OTHER, MEDICAID, SELFPAY ==
--- NOTE | 2024-08-27 06:08 | USCV_ITS ---
Danielle Hooker Age: 59 Gender: F : 1965 Exam Date: 08/27/2024 06:13 Ordering Phys: Pasha Flood MD Technologist: Exam Location: [facility] [place]_ Indication: dizzy Risk Factors: Previous Vascular Surgery: Right Brachial BP: / Left Brachial BP: / Right Left Velocity (cm/s) Spectral Plaque Velocity (cm/s) Spectral Plaque Syst/Diast Broadening Syst/Diast Broadening 73.70/ 20.60 Prox CCA 82.20 / 30.10 75.00/ 27.10 Mid CCA 69.10 / 21.50 74.90/ 23.10 Distal CCA 71.30 / 23.60 60.60/ 12.80 Prox ICA 50.20 / 20.60 69.10/ 21.50 Mid ICA 75.40 / 32.50 84.30/ 32.30 Distal ICA 87.30 / 33.90 110.90 ECA 69.10 1.10 ICA/CCA 1.20 Antegrade Vertebral Antegrade 54.00/ 15.00 cm/s 44.30/ 10.20 cm/s Bi Subclavian Bi 64.80 56.00 FINDINGS Comparison: none available. No significant elevation of systolic or diastolic velocities. Waveforms are normal. No significant amount of calcified plaque or intimal thickening identified. CONCLUSIONS Normal carotid doppler ultrasound. Dr. Lety Stahl DO (Electronically Signed) Final Date: 27 August 2024 09:39 S
[2024-10-29 07:13] VITALS: BP 151/92; PULSE 83; RESP 17; TEMP 37.3; O2SAT 99
[2024-10-29] MEDS: sodium chloride 0.9% 500 ML 15 ML IV (07:18)
--- NOTE | 2024-10-29 07:47 | ANES.PREANE2 ---
Pre-Anesthetic Assessment Height/Weight: Height 1.55 m Weight 64.41 kg Temp Pulse Resp BP Pulse Ox O2 Del Method 99.2 F 83 17 151/92 99 Room Air 10/29/24 07:13 10/29/24 07:13 10/29/24 07:13 10/29/24 07:13 10/29/24 07:13 10/29/24 07:13 Preop Diagnosis: screening Operation Date: 10/29/24 08:00 Proposed Procedures p Colonoscopy 91065, G0121, Z12.11(Not Applicable) - Pasha Folod MD Familial anesthetic complications: none Was Beta Dax taken within 24 hours: N/A Was Clonidine taken within 24 hours: N/A Last intake: Intake Last Liquid Date 10/28/24 Last Liquid Time 23:59 Last Solid Date 10/27/24 Last Solid Time 19:00 Social No alcohol and No tobacco Exam alert, oriented x 3, clear to auscultation bilaterally and regular rate & rhythm Airway Submandibular: within normal limits Cervical ROM: within normal limits Mallampati: Class II Dentition: false History/ROS No significant history except as noted and No significant complaints Pulmonary Sleep Apnea CV/HEM Arrythmia and Hypertension Pacemaker None reported Hepatic None reported GI Gastroesophageal Reflux Disease Metabolic None reported Musc/skel None reported Neuropsych None reported Anesthetic Plan ASA status: 3 Anesthesia: MAC Risk of > 500 ml blood loss (7ml/kg in children): No Medications/Allergies Home Medications Medication Instructions Recorded Confirmed Last Taken Type bupropion HCl 75 mg tablet 75 mg PO DAILY 07/29/24 10/29/24 10/28/24 History meclizine 12.5 mg tablet 12.5 mg PO TID PRN dizziness #20 08/03/24 10/25/24 10/27/24 Rx tabs alendronate 70 mg tablet (Fosamax) 70 mg PO .WEEKLY 10/25/24 10/29/24 10/28/24 History cholecalciferol (vitamin D3) 50 2,000 unit PO DAILY 10/25/24 10/29/24 10/28/24 History mcg (2,000 unit) capsule (Vitamin D3) Allergies Allergy/AdvReac Type Severity Reaction Status Date / Time amoxicillin Allergy Unknown Verified 10/25/24 08:36 nitrofurantoin Allergy Unknown Verified 10/25/24 08:36 [From Macrobid] Penicillins Allergy Unknown Verified 10/25/24 08:36 trazodone Allergy ADR-Nightma Verified 10/25/24 08:36 re Current Medications Generic Name Dose Route Start Last Admin Trade Name Freq PRN Reason Stop Dose Admin Sodium Chloride 500 mls @ 15 mls/hr 10/29/24 06:59 10/29/24 07:18 Sodium Chloride 0.9% IV 10/30/24 06:58 15 mls/hr .Q24H PRN Administration COLONOSCOPY FLUIDS PFSH Anesthesia Medical History (Updated 08/11/24 @ 00:01 by NANCY Meadows) Psychiatric care B12 deficiency Type 2 diabetes mellitus Chronic diarrhea Allergic rhinitis delivery delivered Bradycardia Nausea vomiting and diarrhea Vitamin D deficiency Anxiety and depression Hyperlipidemia Hypertension History of breast cancer Pacemaker Surgical History (Updated 08/08/24 @ 09:31 by PRITI Faye) History of cholecystectomy H/O bilateral mastectomy History of appendectomy Gastric bypass status for obesity History of partial hysterectomy Family History Mother COPD with asthma Postsurgical cardiac pacemaker in situ Hypertension Hyperlipidemia Lung disease Colitis Anxiety and depression Brother Anxiety and depression Diabetes Psychiatric illness schizophrenia Father Liver cirrhosis Cancer Social History Smoking and tobacco/nicotine status: never used tobacco/nicotine Second hand smoke exposure: No Alcohol intake: never Substance/Drug Use: never Household members: spouse and children Marital status: Current occupational status: disabled Current gender identity: Female Special christopher needs: No Agree to transfusion: Yes Data Anesthesia Cardiac Studies: Echocardiogram 02/02/23 Sestamibi Stress Test (Cardiology) 02/03/23
--- NOTE | 2024-10-29 08:05 | W.PM.OPSFHP ---
Same Day Surgery H&P Indication for Procedure/HPI DATE OF PROCEDURE: October 29, 2024 CHIEF COMPLAINT/INDICATIONFOR SURGICAL PROCEDURE: screening colonoscopy PREOP DIAGNOSIS: screening colonoscopy PLANNED PROCEDURE: Operation Date: 10/29/24 08:00 Proposed Procedures p Colonoscopy 80095, G0121, Z12.11(Not Applicable) - Pasha Flood MD Medications/Allergies* Home Medications Medication Instructions Recorded Confirmed Type bupropion HCl 75 mg tablet 75 mg PO DAILY 07/29/24 10/29/24 History alendronate 70 mg tablet (Fosamax) 70 mg PO .WEEKLY 10/25/24 10/29/24 History cholecalciferol (vitamin D3) 50 2,000 unit PO DAILY 10/25/24 10/29/24 History mcg (2,000 unit) capsule (Vitamin D3) Allergies/Adverse Reactions Allergy/AdvReac Type Severity Reaction Status Date / Time amoxicillin Allergy Unknown Verified 10/25/24 08:36 nitrofurantoin Allergy Unknown Verified 10/25/24 08:36 [From Macrobid] Penicillins Allergy Unknown Verified 10/25/24 08:36 trazodone Allergy ADR-Nightma Verified 10/25/24 08:36 re Current Medications: Generic Name Dose Route Start Last Admin Trade Name Freq PRN Reason Stop Dose Admin Sodium Chloride 500 mls @ 15 mls/hr 10/29/24 06:59 10/29/24 07:18 Sodium Chloride 0.9% IV 10/30/24 06:58 15 mls/hr .Q24H PRN Administration COLONOSCOPY FLUIDS Pertinent History/Comorbid Conditions* Medical History (Updated 08/11/24 @ 00:01 by NANCY Meadows) Psychiatric care B12 deficiency Type 2 diabetes mellitus Chronic diarrhea Allergic rhinitis delivery delivered Bradycardia Nausea vomiting and diarrhea Vitamin D deficiency Anxiety and depression Hyperlipidemia Hypertension History of breast cancer Pacemaker Surgical History (Updated 03/21/23 @ 14:22 by LILLY Chang) History of cholecystectomy H/O bilateral mastectomy History of appendectomy Gastric bypass status for obesity History of partial hysterectomy Family History (Updated 06/28/22 @ 10:34 by Talya Cazares) Father Mother Diabetes Brother Colitis Mother Hyperlipidemia Mother Liver cirrhosis Father Psychiatric illness Brother schizophrenia COPD with asthma Mother Anxiety and depression Mother Brother Postsurgical cardiac pacemaker in situ Mother Lung disease Mother Cancer Father Hypertension Mother Social History Smoking and tobacco/nicotine status: never used tobacco/nicotine Second hand smoke exposure: No Alcohol intake: never Substance/Drug Use: never Household members: spouse and children Marital status: Current occupational status: disabled Current gender identity: Female Special christopher needs: No Agree to transfusion: Yes Pertinent Exam Findings alert, oriented x 3, clear to auscultation bilaterally, regular rate & rhythm and procedure specific exam findings abdomen soft, nt, nd Recommendations Surgery/Procedure today Coding Level of Care Code Acute Code for [facility] Fwd
[2024-10-29 08:34] VITALS: BP 139/72; PULSE 75; RESP 18; TEMP 36.4; O2SAT 97
--- NOTE | 2024-10-29 08:41 | ANE.PACU2 ---
Inpatient post-anesthesia follow up: Airway intact: Yes Vital signs: Temperature 97.5 F Pulse Rate 75 Respiratory Rate 18 Blood Pressure 139/72 Pulse Oximetry 97 Oxygen Delivery Me thod Room Air Oxygen Flow Rate Fraction of Inspir ed Oxygen Hydration adequate: Yes Nausea and vomiting: No Pain level: 1 Mental status: Baseline
[2024-10-29 08:57] VITALS: BP 147/94; PULSE 73; RESP 16; O2SAT 100
== END 2024-10-29 09:04 | disposition home or self-care (01) ==
PROVIDERS: PCP Nurse Practitioner Family; Visit Provider Student in an Organized Health Care Education/Training Program
PROC: 0DJD8ZZ Inspection of Lower Intestinal Tract, Via Natural or Artificial Opening Endoscopic (ICD-10-PCS; CPT 45378; principal; 2024-10-29 08:00)
DX: Z12.11 Encounter for screening for malignant neoplasm of colon (principal); E78.5 Hyperlipidemia, unspecified; I10 Essential (primary) hypertension; Z95.0 Presence of cardiac pacemaker; Z85.3 Personal history of malignant neoplasm of breast; K21.9 Gastro-esophageal reflux disease without esophagitis
CPT/HCPCS: 45378; J2704; J7040

== ENCOUNTER → 2024-11-07 09:27 | Outpatient (BNVA) | payer OTHER, MEDICAID, SELFPAY | PROVIDERS: PCP Nurse Practitioner Family; Visit Provider Psychiatry & Neurology Neurology | DX: R42 Dizziness and giddiness (principal); R56.9 Unspecified convulsions; R06.09 Other forms of dyspnea; E11.9 Type 2 diabetes mellitus without complications; F41.1 Generalized anxiety disorder; R07.9 Chest pain, unspecified; R06.02 Shortness of breath; E78.5 Hyperlipidemia, unspecified; I10 Essential (primary) hypertension; R55 Syncope and collapse; R51.9 Headache, unspecified | CPT/HCPCS: 36415; 82306; 82525; 82607; 82746; 83735; 84439; 84443; 84481 ==

== ENCOUNTER → 2024-11-21 11:08 | Outpatient (BNVA) | payer OTHER, SELFPAY | PROVIDERS: PCP Nurse Practitioner Family; Visit Provider Nurse Practitioner | DX: F41.1 Generalized anxiety disorder (principal) | CPT/HCPCS: 80061; 83036 ==

== ENCOUNTER → 2024-12-25 11:08 | Outpatient (BNVA) | payer MEDICAID, SELFPAY ==
[2024-12-09 13:52] VITALS: BP 154/88; BMI 29.1
== END ==
PROVIDERS: Family Provider Nurse Practitioner Family; PCP Nurse Practitioner Family; Visit Provider Nurse Practitioner Family
DX: M25.562 Pain in left knee (principal); G89.29 Other chronic pain; Z95.0 Presence of cardiac pacemaker
CPT/HCPCS: 73562

== ENCOUNTER → 2025-01-13 09:15 | Outpatient (BNVA) | payer MEDICAID, OTHER, SELFPAY ==
[2024-12-09 13:52] VITALS: BP 154/88; BMI 29.1
== END ==
PROVIDERS: Family Provider Nurse Practitioner Family; PCP Nurse Practitioner Family; Visit Provider Specialist
DX: M25.562 Pain in left knee (principal); M17.12 Unilateral primary osteoarthritis, left knee
CPT/HCPCS: 73560; 73565

== ENCOUNTER 2025-01-31 00:52 | Emergency (ER) | payer OTHER, MEDICAID, SELFPAY ==
[2024-12-09 13:52] VITALS: BP 154/88; BMI 29.1
[2025-01-31 00:54] VITALS: BP 157/109; PULSE 76; RESP 18; TEMP 36.4; O2SAT 100; BMI 28.7
--- NOTE | 2025-01-31 00:57 | XRR_ITS ---
PROCEDURE INFORMATION: Exam: XR Right Knee Exam date and time: 01/31/2025 1:19 AM Age: 59 years old Clinical indication: Pain; Knee; Right TECHNIQUE: Imaging protocol: Radiologic exam of the right knee. Views: 3 views. COMPARISON: CR XR knee RT 3V* [id number] 06/07/2024 12:32 AM FINDINGS: Bones/joints: No identified acute osseous abnormality. Faint chondrocalcinosis of the medial and lateral compartments, with mild mediolateral compartment osteophyte formation. Severe narrowing of the patellofemoral compartment. No large volume joint effusion. Soft tissues: Normal. XR/XR knee RT 3V* [id number] IMPRESSION: 1. No identified acute osseous abnormality. 2. Disproportionate narrowing of the patellofemoral compartment with very faint chondrocalcinosis of the medial and lateral compartments. Question degenerative osteoarthritis versus CPPD arthropathy.
--- NOTE | 2025-01-31 01:08 | W.ED.EXTPRO ---
HPI - Extremity Problem General: Chief complaint: Extremity Injury, Lower Stated complaint: R Knee Pain Time Seen by Provider: 01/31/25 00:54 History of Present Illness: 59-year-old female presents emergency room with right knee pain by ambulance. She says she was walking and felt a pop inside of it. She follows with Dr. Wallace for arthritis in the knee. Related Data Home Medications ?Medication ?Instructions ?Recorded ?Confirmed bupropion HCl 75 mg tablet 75 mg PO DAILY 07/29/24 01/20/25 alendronate 70 mg tablet (Fosamax) 70 mg PO .WEEKLY 10/25/24 01/20/25 meclizine 12.5 mg tablet 12.5 mg PO TID PRN 01/20/25 01/20/25 Previous Rx's ?Medication ?Instructions ?Recorded ergocalciferol (vitamin D2) 1,250 1,250 mcg PO .weekly #14 caps 11/11/24 mcg (50,000 unit) capsule Allergies Allergy/AdvReac Type Severity Reaction Status Date / Time amoxicillin Allergy Unknown Verified 01/31/25 00:56 nitrofurantoin (From Allergy Unknown Verified 01/31/25 00:56 Macrobid) Penicillins Allergy Unknown Verified 01/31/25 00:56 trazodone Allergy ADR-Nightma Verified 01/31/25 00:56 re Review of Systems Narrative: Constitutional symptoms: Negative except as documented in HPI. Skin symptoms: Negative except as documented in HPI. Eye symptoms: Negative except as documented in HPI. ENMT symptoms: Negative except as documented in HPI. Respiratory symptoms: Negative except as documented in HPI. Cardiovascular symptoms: Negative except as documented in HPI. Gastrointestinal symptoms: Negative except as documented in HPI. Genitourinary symptoms: Negative except as documented in HPI. Musculoskeletal symptoms: Negative except as documented in HPI. Neurologic symptoms: Negative except as documented in HPI. Psychiatric symptoms: Negative except as documented in HPI. Endocrine symptoms: Negative except as documented in HPI. PFSH ED PFSH: Medical History Psychiatric care B12 deficiency Type 2 diabetes mellitus Chronic diarrhea Allergic rhinitis delivery delivered Bradycardia Nausea vomiting and diarrhea Vitamin D deficiency Anxiety and depression Hyperlipidemia Hypertension History of breast cancer Pacemaker Surgical History History of colonoscopy 09/2024 at [facility]-recheck 09/2034 History of cholecystectomy H/O bilateral mastectomy History of appendectomy Gastric bypass status for obesity History of partial hysterectomy Family History Mother COPD with asthma Postsurgical cardiac pacemaker in situ Hypertension Hyperlipidemia Lung disease Colitis Anxiety and depression Brother Anxiety and depression Diabetes Psychiatric illness schizophrenia Father Liver cirrhosis Cancer Social History Smoking and tobacco/nicotine status: never used tobacco/nicotine Second hand smoke exposure: No Alcohol intake: never Substance/Drug Use: never Adopted: No Caregiver/support person: No Lives independently: Yes Household members: family, children and other Details: landlord that is the father to one of her grandchildren Housing: House Marital status: / Number of children: 2 Number of grandchildren: 4 Highest education level completed: High School Graduate service: No Current occupational status: disabled Pets and animals: Yes Pets & animals: cat(s) and dog(s) Leisure activites: games and other Leisure activities details: watch movies and you tube Sexually active: No Do you think of yourself as: Straight/Heterosexual Current gender identity: Female Shelly/Judaism: Pentecostalism Special shelly needs: No Agree to transfusion: Yes Female Reproductive History: Para: 2 Spontaneous abortions: No Physical Exam Narrative: EXAM NARRATIVE: General: Alert, no acute distress. Skin: warm and dry Head: Normocephalic Neck: Trachea midline Eye: Extraocular movements are intact. Ears, nose, mouth and throat: Oral mucosa moist Respiratory: Respirations are non-labored Musculoskeletal: Normal ROM Neurological: Alert and oriented, No focal neurological deficit observed. Psychiatric: Cooperative, appropriate mood & affect. Course Vital Signs: Vital signs: Vital Signs Temperature 97.6 F 01/31/25 00:54 Pulse Rate 73 01/31/25 01:23 Respiratory Rate 15 01/31/25 01:23 Blood Pressure 157/109 01/31/25 01:23 Pulse Oximetry 100 01/31/25 01:23 Oxygen Delivery Me thod Room Air 01/31/25 01:23 MDM - Extremity (Nontraumatic) Medical Decision Making X-ray of the knee: No acute fractures or dislocations. films were interpreted by myself the emergency room provider and pending final radiology review. Assessment and plan: Knee injury - Discharged home - Discussed plan with patient. Answered any questions. - Evaluation and treatment of this problem were appropriate in the emergency setting. XR interpretation done by ED provider, pending radiology final review Discharge Plan Discharge Patient Disposition: Home Clinical Impression: Internal derangement of knee Condition: Stable Prescriptions: No Action bupropion HCl 75 mg tablet 75 mg PO DAILY ergocalciferol (vitamin D2) 1,250 mcg (50,000 unit) capsule 1,250 mcg PO .weekly Qty: 14 3RF meclizine 12.5 mg tablet 12.5 mg PO TID PRN alendronate [Fosamax] 70 mg Tablet 70 mg PO .WEEKLY Rx Instructions: Monday Discharge Orders: Discharge ED (Routine); Ordered 01/31/25 Ordered By: Deonna Rodrigues Referrals: Merari Wallace MD [Physician] - 4-7 days (Please call for follow-up appointment) Ana M Putnam FNP [Primary Care Provider] - Discharge Diet: Usual diet Discharge Activity: Increase activity as tolerated Patient Instructions: Opioid Safety, Pain Management Activity Restrictions/Additional Instructions: Thank you for choosing [facility] for your healthcare needs today. Please realize this is an emergency room and that we are providing you with a medical screening exam and this may not be complete and all inclusive of all the testing and or work up that you may need to determine your ailment or severity of your illness. You have been screened and evaluated and felt safe for discharge. Health conditions do change or evolve sometimes and as such it is important that you follow up with your Primary Doctor to be re checked, 3-5 days is a general good time frame for follow up. You are always welcome to return to the ED for re assessment if your symptoms are worsening or you have new concerns Print Language: Honduran Coding Level of Care Code ED Product Assurance Engineer for Cristian Stovall
[2025-01-31 01:23] VITALS: BP 157/109; PULSE 73; RESP 15; O2SAT 100
[2025-01-31] MEDS: HYDROcodone-acetaminophen 10-325 mg Tablet 1 TAB PO (01:49)
[2025-01-31 01:53] VITALS: BP 148/103; PULSE 69; RESP 17; O2SAT 97
== END 2025-01-31 01:52 | disposition home or self-care (01) ==
PROVIDERS: Emergency Provider Emergency Medicine; Family Provider Nurse Practitioner Family; PCP Nurse Practitioner Family
DX: M23.91 Unspecified internal derangement of right knee (principal); Z85.3 Personal history of malignant neoplasm of breast; Z95.0 Presence of cardiac pacemaker; E11.9 Type 2 diabetes mellitus without complications; E78.5 Hyperlipidemia, unspecified; I10 Essential (primary) hypertension
CPT/HCPCS: 73562; 99283; J9999

== ENCOUNTER → 2025-02-05 14:06 | Outpatient (BNVA) | payer MEDICAID, SELFPAY ==
[2024-12-09 13:52] VITALS: BP 154/88; BMI 29.1
== END ==
PROVIDERS: Family Provider Nurse Practitioner Family; PCP Nurse Practitioner Family; Visit Provider Nurse Practitioner Family
DX: I10 Essential (primary) hypertension (principal); E55.9 Vitamin D deficiency, unspecified; E53.8 Deficiency of other specified B group vitamins; E78.5 Hyperlipidemia, unspecified
CPT/HCPCS: 80053; 80061; 82306; 82607; 84443; 85025

== ENCOUNTER 2025-05-26 22:29 | Emergency (ER) | payer MEDICAID, SELFPAY ==
--- OUTSIDE RECORDS SUMMARY | 2024-07-04 04:30 | XMS_ITS ---
Author Organization [facility] Address [address] [place] [address] Care Team Providers Care Mophead Sewer Name Role Phone Nikole Roland Primary Care Provider [phone] Pawel Palomares [phone] NIKOLE ROLAND Unavailable Unavailable REASON FOR VISIT cx per pt req d/t she has no transportation Encounters Encounter Location Date Provider Diagnosis [facility] [address] [place] [address], [place] [address] 07/04/2024 Pawel Palomares Plan Of Treatment No Information Progress Notes * Danielle HOOKERDOB:1964 (59 yo F)Acc No.[id number]:07/04/2024 Patient: Danielle Olson Provider: Jenn Palomares MD :1965 A ge:58 Y S ex:Female Date:07/04/2024 Address:[address] [place] [phone] Pcp:Nikole Roland Subjective: * Chief Complaints: * C x per pt req d/t she has no transportation Billing Information: * Procedure Codes: * Electronic signature of Catalina Palomares MD on 05/26/2025 at 10:40 PM CDT Sign off status: Pending * Provider: Jenn Palomares MD Date: 07/04/2024 Generated for Printi froilan/Yaniv/eTransmitting on: 05/26/2025 10:40 PM CDT
--- OUTSIDE RECORDS SUMMARY | 2024-07-04 05:30 | XMS_ITS ---
Author Organization [facility] Address [address] [place] [address] Care Team Providers Care Button Sewer Hand Name Role Phone Nikole Roland Primary Care Provider [phone] Pawel Palomares Unavailable [phone] NIKOLE ROLAND Unavailable Unavailable Tasia Whitley Unavailable [phone] REASON FOR VISIT 3m f/u w/echo w/tasia 05/08/24 pr Medications Medication SIG (Take, Route, Frequency, Duration) Notes Start Date End Date Status EQ All Day Allergy Relief 10 MG Tablet Take 1 tablet by mouth once daily; Duration: 30 Active Lisinopril 20 MG Tablet Take 1 tablet by mouth once daily; Duration: 30 Active Escitalopram Oxalate 10 MG Tablet Take 1 tablet by mouth once daily; Duration: 30 Active Levothyroxine Sodium 25 MCG Tablet 1 tablet in the morning on an empty stomach Orally Once a day; Duration: 30 days Active hydroCHLOROthiazide 12.5 MG Tablet 1 tablet in the morning Orally Once a day; Duration: 30 days 12/04/2023 Active Crestor 10 MG Tablet 1 tablet Orally Onc e a day; Duration: 90 days 02/01/2024 Active Encounters Encounter Location Date Provider Diagnosis [facility] [address] [place] [address], [place] [address] 07/04/2024 Tasia Whitley Plan Of Treatment No Information History and Physical Notes * HPI (History of Present Illness) Category Sub-Category Detail Notes Category Not es Provider Note This is a 58-year-old with hypertension, hyperlipidemia, hypothyroidism and a permanent pacemaker placed in 2019. Due to a lapse in insurance coverage she has not had her pacemaker checked in quite some time. Last lipid panel shows triglycerides 136, total cholesterol 242, HDL 55, LDL 160. She was started on simvastatin 20 mg at the last office visit. She had coronary calcium scoring on 04/01/2024 with a total Agatston score of 0. Progress Notes * Danielle HOOKERDOB:1964 (59 yo F)Acc No.[id number]:07/04/2024 Progress Notes Patient: Danielle Olson Provider: Warren Whitley APN :1965 A ge:58 Y S ex:Female Date:07/04/2024 Address:[address] [place] [phone] Pcp:Nikole Roland Subjective: * Chief Complaints: * 3 m f/u w/echo w/tasia 05/08/24 pr * HPI: Jenn castorena Note: This is a 58-year-old with hypertension, hyperlipidemia, hypothyroidism and a permanent pacemaker placed in 2019. Due to a lapse in insurance coverage she has not had her pacemaker checked in quite some time. Last lipid panel shows triglycerides 136, total cholesterol 242, HDL 55, LDL 160. She was started on simvastatin 20 mg at the last office visit. She had coronary calcium scoring on 04/01/2024 with a total Agatston score of 0. * Medications: T akingCrestor 10 MG Tablet 1 tablet Orally Once a day Escitalopram Oxalate 10 MG Tablet Take 1 tablet by mouth once daily hydroCHLOROthiazide 12.5 MG Tablet 1 tablet in the morning Orally Once a day Levothyroxine Sodium 25 MCG Tablet 1 tablet in the morning on an empty stomach Orally Once a day Lisinopril 20 MG Tablet Take 1 tablet by mouth once daily EQ All Day Allergy Relief 10 MG Tablet Take 1 tablet by mouth once daily Taking Crestor 10 MG Tablet 1 tablet Orally Once a day Taking Escitalopram Oxalate 10 MG Tablet Take 1 tablet by mouth once daily Taking hydroCHLOROthiazide 12.5 MG Tablet 1 tablet in the morning Orally Once a day Taking Levothyroxine Sodium 25 MCG Tablet 1 tablet in the morning on an empty stomach Orally Once a day Taking Lisinopril 20 MG Tablet Take 1 tablet by mouth once daily Taking EQ All Day Allergy Relief 10 MG Tablet Take 1 tablet by mouth once daily Billing Information: * Procedure Codes: * Electronic signature of Kevin Whitley APN on 05/26/2025 at 10:40 PM CDT Sign off status: Pending * Provider: Warren Whitley APN Date: 07/04/2024 Generated for Dilcia cmgovern/Yaniv/Rafael on: 0 05/26/2025 10:40 PM CDT
[2024-12-09 13:52] VITALS: BP 154/88; BMI 29.1
[2025-05-26 22:35] VITALS: BP 159/105; PULSE 76; RESP 17; TEMP 36.6; O2SAT 100; BMI 27.9
--- NOTE | 2025-05-26 22:35 | XRR_ITS ---
PROCEDURE INFORMATION: Exam: XR Left Knee Exam date and time: 05/26/2025 10:42 PM Age: 59 years old Clinical indication: Injury or trauma; Fall; Blunt trauma; Knee; Left; Additional info: Fall, pain TECHNIQUE: Imaging protocol: Radiologic exam of the left knee. Views: 3 views. COMPARISON: CR XR knees AP WB w LT lmt ORTH 01/13/2025 9:16 AM FINDINGS: Bones/joints: Tricompartmental degenerative changes. No acute fracture. No dislocation. Soft tissues: Normal. XR/XR knee LT 3V* [id number] IMPRESSION: No acute findings.
--- NOTE | 2025-05-26 22:35 | XRR_ITS ---
PROCEDURE INFORMATION: Exam: XR Right Knee Exam date and time: 05/26/2025 10:45 PM Age: 59 years old Clinical indication: Injury or trauma; Fall; Blunt trauma; Knee; Right; Additional info: Fall, pain TECHNIQUE: Imaging protocol: Radiologic exam of the right knee. Views: 3 views. COMPARISON: CR (LOW EXM, ) 01/31/2025 1:19 AM FINDINGS: Bones/joints: Tricompartmental degenerative changes. No acute fracture. No dislocation. Soft tissues: Normal. XR/XR knee RT 3V* [id number] IMPRESSION: No acute findings.
--- NOTE | 2025-05-26 22:36 | CTR_ITS ---
PROCEDURE INFORMATION: Exam: CT Head Without Contrast Exam date and time: 05/26/2025 11:19 PM Age: 59 years old Clinical indication: Injury or trauma; Fall; Blunt trauma (contusions or hematomas); Additional info: Fall, head injury TECHNIQUE: Imaging protocol: Computed tomography of the head without contrast. Radiation optimization: All CT scans at this facility use at least one of these dose optimization techniques: automated exposure control; mA and/or kV adjustment per patient size (includes targeted exams where dose is matched to clinical indication); or iterative reconstruction. COMPARISON: MR head wo con* [id number] 11/26/2024 9:39 AM RADIATION DOSE METRICS: Total DLP (mGy-cm): 921.5 FINDINGS: Brain: No hemorrhage. No edema, mass effect or midline shift. Periventricular and deep white matter hypodensities compatible with chronic microvascular ischemic changes. Cerebral ventricles: No ventriculomegaly. Paranasal sinuses: Visualized sinuses are unremarkable. No fluid levels. Mastoid air cells: No mastoid effusion. Bones: Unremarkable. No acute fracture. Soft tissues: Unremarkable. CT/CT head wo con* [id number] IMPRESSION: No acute intracranial abnormality.
--- NOTE | 2025-05-26 22:36 | ED_ITS ---
HPI - Fall General: Chief Complaint: Fall Stated Complaint: fall, knee pain Time Seen by Provider: 05/26/25 22:34 History of Present Illness: 59-year-old female who presents emergenc y room by EMS with knee pain. Around 10 hours ago she was walking outside and tripped and fell face first on the pavement. He is having some nose pain, headache, she is not on any anticoagulation. Is also complaining of bilateral knee pain. She did have a bloody nose but that improved. She felt somewhat nauseated after the fall and has had a headache. No loss of consciousness. No altered mental status. No focal motor deficits. No chest pain. No abdominal pain. Related Data Home Medications ?Medication ?Instructions ?Recorded ?Confirmed alendronate 70 mg tablet (Fosamax) 70 mg PO .WEEKLY 05/22/25 meclizine 12.5 mg tablet 12.5 mg PO TID PRN 01/20/25 05/22/25 cyanocobalamin (vitamin B-12) 2,500 mcg PO DAILY 04/2105/22/25 2,500 mcg tablet Previous Rx's ?Medication ?Instructions ?Recorded ergocalciferol (vitamin D2) 1,250 1,250 mcg PO .weekly #14 caps 11/11/24 mcg (50,000 unit) capsule bupropion HCl 75 mg tablet 75 mg PO BID #60 tabs 04/21 sertraline 50 mg tablet (Zoloft) 50 mg PO DAILY #30 ta bs 04/21/25 doxycycline hyclate 100 mg capsule 100 mg PO BID #14 c aps 05/22/25 mupirocin 2 % topical ointment 1 applic topical BID #1 5 grams 05/22/25 (Centany) Allergies Allergy/AdvReac Type Severity Reaction Status Date / Time amoxicillin Allergy Unknown Verified 05/22/25 11:12 nitrofurantoin (From Allergy Unknown Verified 05/22/25 11:12 Macrobid) Penicillins Allergy Unknown Verified 05/22/25 11:12 trazodone Allergy ADR-Nightma Verified 05/22/25 11:12 re Review of Systems Narrative: Constitutional symptoms: Negative except as documented in HPI. Skin symptoms: Negative except as documented in HPI. Eye symptoms: Negative except as documented in HPI. ENMT symptoms: Negative except as documented in HPI. Respiratory symptoms: Negative except as documented in HPI. Cardiovascular symptoms: Negative except as documented in HPI. Gastrointestinal symptoms: Negative except as documented in HPI. Genitourinary symptoms: Negative except as documented in HPI. Musculoskeletal symptoms: Negative except as documented in HPI. Neurologic symptoms: Negative except as documented in HPI. Psychiatric symptoms: Negative except as documented in HPI. Endocrine symptoms: Negative except as documented in HPI. PFS ED PFSH: Medical History (Updated 05/27/25 @ 00:06 by Deonna Rodrigues MD) Psychiatric care B12 deficiency Type 2 diabetes mellitus Chronic diarrhea Allergic rhinitis delivery delivered Bradycardia Nausea vomiting and diarrhea Vitamin D deficiency Anxiety and depression Hyperlipidemia Hypertension History of breast cancer Pacemaker Surgical History History of colonoscopy 09/2024 at [facility]-recheck 09/2034 History of cholecystectomy H/O bilateral mastectomy History of appendectomy Gastric bypass status for obesity History of partial hysterectomy Family History Mother COPD with asthma Postsurgical cardiac pacemaker in situ Hypertension Hyperlipidemia Lung disease Colitis Anxiety and depression Brother Anxiety and depression Diabetes Psychiatric illness schizophrenia Father Liver cirrhosis Cancer Social History Smoking and tobacco/nicotine status: never used tobacco/nicotine Second hand smoke exposure: No Alcohol intake: never Substance/Drug Use: never Adopted: No Caregiver/support person: No Lives independently: Yes Household members: family, children and other Details: landlord that is the father to one of her grandchildren Housing: House Marital status: / Number of children: 2 Number of grandchildren: 4 Highest education level completed: High School Graduate service: No Current occupational status: disabled Pets and animals: Yes Pets & animals: cat(s) and dog(s) Leisure activites: games and other Leisure activities details: watch movies and you tube Sexually active: No Do you think of yourself as: Straight/Heterosexual Current gender identity: Female Shelly/Jewish: Zoroastrian Special shelly needs: No Agree to transfusion: Yes Female Reproductive History: Para: 2 Spontaneous abortions: No Physical Exam Narrative: EXAM NARRATIVE: General: Alert, no acute distress. Skin: Warm, dry. Abrasions to the knees bilaterally with some swelling and bruising but no obvious deformities. Head: Normocephalic, patient does have some swelling of the nasal bridge. No obvious deformity.. Neck: Supple, trachea midline. Eye: Extraocular movements are intact. Ears, nose, mouth and throat: mucosa moist. Cardiovascular: Regular, Normal peripheral perfusion. Respiratory: Lungs are clear to auscultation, respirations are non-labored, breath sounds are equal, Symmetrical chest wall expansion. Gastrointestinal: Soft, Nontender, Non distended Musculoskeletal: Normal ROM, no deformity. Neurological: Alert and oriented, No focal neurological deficit observed. Psychiatric: Cooperative, appropriate mood & affect. Course Vital Signs: Vital signs: Vital Signs Temperature 97.9 F 05/26/25 22:35 Pulse Rate 77 05/26/25 22:59 Respiratory Rate 17 05/26/25 22:35 Blood Pressure 160/100 05/26/25 22:59 Pulse Oximetry 98 05/26/25 22:59 Oxygen Delivery Me thod Room Air 05/26/25 22:59 MDM - Fall Medical Decision Making Medical decision making: Differential diagnosis including but not limited to and based on the above HPI, review of systems and physical exam: patient with fall and head injury. Subdural hematoma, subarachnoid hemorrhage, concussion, skull fracture. Orders placed to evaluate differential diagnosis based on the above differential, HPI and physical exam CT scan of the head was ordered. Differential diagnosis including but not limited to and based on the above HPI, review of systems and physical exam: In this patient with a musculoskeletal extremity traumatic injury and x-ray is being ordered to rule out fractures and dislocations. Orders placed to evaluate differential diagnosis based on the above differential, HPI and physical exam CT head: No acute intracranial process. no intracranial hemorrhage, no evidence of infarct. no evidence of acute fracture.This was reviewed and interpreted by myself the ER physician. CT of facial bones: No fractures. This was reviewed and interpreted by myself the emergency room physician. I also reviewed the radiology report. X-ray of the knees bilaterally: No acute fractures or dislocations. This was reviewed and interpreted by myself the emergency room physician. I also reviewed the radiology report. Reexamination: Patient remained stable. No increased work of breathing. No altered mental status. No focal motor deficits. I reviewed the patient's medical record. Assessment and plan: Fall Head injury Knee injury - Discharged home - Discussed plan with patient. Answered any questions. - Evaluation and treatment of this problem were appropriate in the emergency setting. Lab Data Radiology Impressions Knee X-Ray 05/26/25 22:35 IMPRESSION: No acute findings. Face CT 05/26/25 22:36 IMPRESSION: No acute findings. Head CT 05/26/25 22:36 IMPRESSION: No acute intracranial abnormality. All radiology interpretation(s) finalized by discharge Discharge Plan Discharge Patient Disposition: Home Clinical Impression: Head injury, Injury, knee Condition: Stable Prescriptions: No Action ergocalciferol (vitamin D2) 1,250 mcg (50,000 unit) capsule 1,250 mcg PO .weekly Qty: 14 3RF meclizine 12.5 mg tablet 12.5 mg PO TID PRN cyanocobalamin (vitamin B-12) 2,500 mcg tablet 2,500 mcg PO DAILY bupropion HCl 75 mg tablet 75 mg PO BID Qty: 60 2RF sertraline [Zoloft] 50 mg tablet 50 mg PO DAILY Qty: 30 2RF doxycycline hyclate 100 mg capsule 100 mg PO BID Qty: 14 0RF mupirocin [Centany] 2 % ointment 1 applic topical BID Qty: 15 0RF alendronate [Fosamax] 70 mg Tablet 70 mg PO .WEEKLY Rx Instructions: Monday Discharge Orders: Discharge ED (Routine); Ordered 05/27/25 Ordered By: Deonna Rodrigues Referrals: Ana M Putnam FNP [Primary Care Provider, Family Practice] Discharge Diet: Usual diet Discharge Activity: Increase activity as tolerated Patient Instructions: Opioid Safety, Pain Management, Patient Portal & Angel Instructions Activity Restrictions/Additional Instructions: Thank you for choosing [facility] for your healthcare needs today. You have been screened and evaluated and felt safe for discharge. Health conditions do change or evolve sometimes and as such it is important that you follow up with your Primary Doctor to be re checked, 3-5 days is a general good time frame for follow up. You are always welcome to return to the ED for re assessment if your symptoms are worsening or you have new concerns Print Language: Central African Coding Level of Care Code ED Shipping/Receiving Manager for Cristian Stovall
--- NOTE | 2025-05-26 22:36 | CTR_ITS ---
PROCEDURE INFORMATION: Exam: CT Maxillofacial Without Contrast Exam date and time: 05/26/2025 11:19 PM Age: 59 years old Clinical indication: Injury or trauma; Fall; Blunt trauma (contusions or hematomas); Nose; Additional info: Trauamatic facial pain TECHNIQUE: Imaging protocol: Computed tomography of the face without contrast. Radiation optimization: All CT scans at this facility use at least one of these dose optimization techniques: automated exposure control; mA and/or kV adjustment per patient size (includes targeted exams where dose is matched to clinical indication); or iterative reconstruction. COMPARISON: MR head wo con* [id number] 11/26/2024 9:39 AM RADIATION DOSE METRICS: Total DLP (mGy-cm): 571.5 FINDINGS: Paranasal sinuses: Paranasal sinus mucosal thickening. Orbital cavities: Orbits are normal. Globes are unremarkable. Bones: No acute fracture. Soft tissues: Unremarkable. CT/CT facial bones wo con* [id number] IMPRESSION: No acute findings.
--- OUTSIDE RECORDS SUMMARY | 2025-05-26 22:40 | XMS_ITS | Patient Health Record ---
Author Organization [facility] Address [address] [place] [address] Care Team Providers Care Bin Packer Name Role Phone Silverio Tejeda MD Primary Care Provider Baltazar Mendes Jr Unavailable ALLERGIES Allergen (clinical drug ingredient) Drug/Non Drug Allergy documented on EMR Reaction Allergy Type Onset Date Status Information temporarily unavailable Amoxicillin Unknown Drug Allergy Active Information temporarily unavailable Trazodone HCl Unknown Drug Allergy Active Information temporarily unavailable Trihexyphenidyl HCl Unknown Drug Allergy Active Information temporarily unavailable Penicillin Unknown Drug Allergy Active REASON FOR REFERRAL No Information MEDICATIONS Medication SIG (Take, Route, Frequency, Duration) Notes Start Date End Date Status Vitamin D3 2000 UNIT 1 capsule Orally On ce a day for 30 day(s) Active Metoprolol Succinate 25 MG 1 capsule Ora lly Once a day for 30 day(s) Active Atorvastatin Calcium 40 MG 1 tablet Oral ly Once a day for 30 day(s) Active DULoxetine HCl 60 MG 1 capsule Orally On ce a day 12/28/2016 Not-Taking Metoclopramide HCl 10 MG 1 tablet before meals Orally Twice a day for 30 day(s) Active Doxepin HCl 25 MG 1 capsule at bedtime Orally Once a day 12/28/2016 Not-Taking Venlafaxine HCl 75 MG 1 tablet with food Orally Once a day for 30 day(s) Active atenolol 1 tab Oral 12/28/2016 Not-Taki ng SEROquel 50 MG 1 tablet at bedtime Orally Once a day for 30 day(s) Active busPIRone HCl 15 MG 1 tablet Orally Tw e a day 12/28/2016 Not-Taking Pantoprazole Sodium 40 MG 1 tablet Orall y Once a day for 30 day(s) Active ARIPiprazole 10 MG 1 tablet Orally Once a day 12/28/2016 Not-Taking Diclofenac Sodium 1 % as directed Transdermal Twice a day for 30 days 12/27/2019 Active Voltaren 1 % as directed Transdermal Twice daily for 30 days 12/27/2019 Active Fioricet 50-300-40 MG 1 capsule as neede d Orally every 4 hrs Active Temazepam 30 MG 1 capsule at bedtime as needed Orally Once a day 12/28/2016 Not-Taking Spironolactone 25 MG 1 tablet Orally Twi ce a day 12/28/2016 Not-Taking Montelukast Sodium 10 MG 1 tablet in the evening Orally Once a day 12/28/2016 Not-Taking Loratadine 10 MG 1 tablet Orally Once a day 12/28/2016 Not-Taking Lansoprazole 30 MG 1 capsule Orally Onc e a day 12/28/2016 Not-Taking Gabapentin 400 MG 1 capsule Orally Thr ee times a day 12/28/2016 Not-Taking Advair Diskus 100-50 MCG/DOSE 1 puff Inhalation Twice a day 12/28/2016 Not-Taking ZyrTEC Allergy 10 MG 1 tablet Orally Onc e a day for 30 day(s) Active Ferrous Sulfate 325 (65 Fe) MG 1 tablet Orally Once a day 12/28/2016 Not-Taking SOCIAL HISTORY Tobacco Use: Social History Observation Description Date Details (start date - stop date) Never Smoker NA - NA Sex Assigned At : Social History Observation Description Sex Assigned At Unknown Tobacco Use/Smoking Question Answer Notes Are you a nonsmoker Alcohol Screen (Audit-C) Question Answer Notes Did you have a drink containing alcohol in the p ast year? 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 disc (M51.26) Active confirmed 62407287 Problem Arthritis of knee (M17.10) Active confirmed [id number] PLAN OF TREATMENT No Information Insurance Providers Payer Name Payer Address Payer Phone Subscriber Number Group Number Insured Name Patient Relationship to Insured Coverage Start Date Coverage End Date Medicaid [address] [place] [address] [id number] Lobito mckoy Danielle Self - patient is the insured 7 MEDICATIONS ADMINISTERED Medication Instructions Date of Administration Dosage Notes Celestone per 3 mg 07/26/2019 6 cm3 Celestone per 3 mg 05/12/2020 3 mg Kenalog 20 10/25/2019 10 mg Lidocaine 07/26/2019 5 cm3 Lidocaine 10/25/2019 5 cm3 Lidocaine 05/12/2020 .5 cm3 MEDICAL (GENERAL) HISTORY Medical History History ICD Code anxiety asthma depression diabetes gerd h pylori headache high cholesterol hypertension panic disorder hypocalcemia insomnia joint pain cells pap Surgical History Surgery Date(Month/Year) appendectomy knee scope biopsy left breast blood transfusion cholecystectomy tubal ligation gastric sleeve 12/20/16 Pacemaker 2019 Port 2018 Hospitalization History Reason Date(Month/Year) see surgical hx
--- OUTSIDE RECORDS SUMMARY | 2025-05-26 22:41 | XMS_ITS | Patient Health Record ---
Author Organization [facility] Address [address] [place] [address] Care Team Providers Care Entry Level Management Name Role Phone Nikole Roland Primary Care Provider Pawel Palomares Unavailable [phone] NIKOLE ROLAND Unavailable Unavailable Catalina Whitley Unavailable [phone] Allergies Allergen (clinical drug ingredient) Drug/Non Drug Allergy documented on EMR Reaction Allergy Type Onset Date Status Information temporarily unavailable Macrobid Unknown Drug Allergy Active Information temporarily unavailable Penicillin Unknown Drug Allergy Active Information temporarily unavailable Trazodone Unknown Drug Allergy Active Reason For Referral No Information Medications Medication SIG (Take, Route, Frequency, Duration) Notes Start Date End Date Status EQ All Day Allergy Relief 10 MG Tablet Take 1 tablet by mouth once daily; Duration: 30 Active Lisinopril 20 MG Tablet Take 1 tablet by mouth once daily; Duration: 30 Active Escitalopram Oxalate 10 MG Tablet Take 1 tablet by mouth once daily; Duration: 30 Active Crestor 10 MG Tablet 1 tablet Orally Onc e a day; Duration: 90 days 02/01/2024 Active Levothyroxine Sodium 25 MCG Tablet 1 tablet in the morning on an empty stomach Orally Once a day; Duration: 30 days Active hydroCHLOROthiazide 12.5 MG Tablet 1 tablet in the morning Orally Once a day; Duration: 30 days 12/04/2023 Active Social History Tobacco Use: Social History Observation Description Date Details (start date - stop date) Never Smoker NA - NA Social History Depression Screening Social Info Question Answer Notes PHQ-9 Little interest or pleasure in doing thin gs Not at all Feeling down, depressed, or hopeless Not at all Trouble falling or staying asleep, or sleeping t oo much Not at all Feeling tired or having little energy Not at all Poor appetite or overeating Not at all Feeling bad about yourself, or that you are a failure, or have let yourself or your family down Not at all Trouble concentrating on thi ngs, such as reading the newspaper or watching television Not at all Moving or speaking so slowly that other people could have noticed. Or the opposite ? being so fidgety or restless that you have been moving around a lot more than usual Not at all Thoughts that you would be b nathaniel off , or of hurting yourself in some way Not at all Total Score 0 Drugs/Alcohol: Social Info Question Answer Notes Alcohol Screen (Audit-C) Did you have a drink containing alcohol in the past year? No Points 0 Interpretation Negative Caffeine Intake: 1-2 cups per day Tobacco Use: Social Info Question Answer Notes xTobacco Use/Smoking Are you a nonsmoker Additional Details Category Social Info Options Details Drugs/Alcohol: Do you drink alcohol? No Section Notes: 11/28/23 PHQ9 11/28/23 PHQ9 11/28/23 PHQ9 11/28/23 PHQ9 11/28/23 PHQ9 11/28/23 PHQ9 11/28/23 PHQ9 Problems Problem Type SNOMED Code ICD Code Onset Dates Problem Status W/U Status Risk Notes Problem Information temporarily unavailable Sick sinus syndrome (I49.5) Active confirmed Problem Information temporarily unavailable Depression with anxiety (F41.8) Active confirmed Problem Information temporarily unavailable Hypothyroid (E03.9) Active confirmed Problem Information temporarily unavailable Pacemaker (Z95.0) Active confirmed Problem Information temporarily unavailable Hypertension (I10) Active confirmed Problem Information temporarily unavailable Hyperlipidemia (E78.5) Active confirmed Encounters Encounter Location Date Provider Diagnosis [facility] [address] [place] [phone] 10/29/2024 Pawel Palomares Plan Of Treatment No Information Insurance Providers Payer Name Payer Address Payer Phone Subscriber Number Group Number Insured Name Patient Relationship to Insured Coverage Start Date Coverage End Date [facility] COMM[employer]ITY PLAN [address] [place] [address] [id number] Danielle Martinez Self - patient is the insured Paula [address] [place] [phone] [id number] Danielle Collado Self - patient is the insured 4 Medical (General) History Medical History History ICD Code breast cancer, 2017 pacemaker, 2019 Surgical History Surgery Date(Month/Year) cholecystectomy appendectomy oophorectomy gastric sleeve Hospitalization History Reason Date(Month/Year) ER dizzy and headache 01/20
[2025-05-26 22:59] VITALS: BP 160/100; PULSE 77; O2SAT 98
[2025-05-27 00:07] VITALS: BP 145/94; PULSE 72; O2SAT 97
== END 2025-05-27 00:15 | disposition home or self-care (01) ==
PROVIDERS: Emergency Provider Emergency Medicine; PCP Nurse Practitioner Family
DX: S09.90XA Unspecified injury of head, initial encounter (principal); M25.562 Pain in left knee; M25.561 Pain in right knee; E11.9 Type 2 diabetes mellitus without complications; E78.5 Hyperlipidemia, unspecified; I10 Essential (primary) hypertension; Z95.0 Presence of cardiac pacemaker; Z85.3 Personal history of malignant neoplasm of breast; W19.XXXA Unspecified fall, initial encounter
CPT/HCPCS: 70450; 70486; 73562; 99284

== ENCOUNTER → 2025-06-27 09:42 | Outpatient (BNVA) | payer MEDICAID, SELFPAY ==
[2024-12-09 13:52] VITALS: BP 154/88; BMI 29.1
== END ==
PROVIDERS: Family Provider Nurse Practitioner Family; PCP Nurse Practitioner Family; Visit Provider Nurse Practitioner Family
DX: E11.9 Type 2 diabetes mellitus without complications (principal); F41.9 Anxiety disorder, unspecified; F32.A Depression, unspecified
CPT/HCPCS: 80053; 80061; 82306; 82607; 83036; 84443; 85025

== ENCOUNTER 2025-07-14 22:35 | Emergency (ER) | payer OTHER, MEDICAID, SELFPAY ==
--- OUTSIDE RECORDS SUMMARY | 2024-03-07 10:00 | XMS_ITS ---
Author Organization [facility] Address [address] [place] [address] Care Team Providers Care Quality Systems Technician Name Role Phone Nikole Roland Primary Care Provider Pawel Palomares [phone] NIKOLE ROLAND Unavailable Unavailable REASON FOR VISIT LVM WITH ALL INFO, SSIMP 02/05/2024 Encounters Encounter Location Date Provider Diagnosis [facility] [address] [place] [address], [place] [address] 03/07/2024 Pawel Palomares Plan Of Treatment No Information Progress Notes * Hector HOOKERliajayDOB:1964 (59 yo F)Acc No.[id number]:03/07/2024 Patient: Danielle Olson Provider: Jenn Palomares MD :1965 A ge:58 Y S ex:Female Date:03/07/2024 Address:[address] [place], [place] [id number] Pcp:Nikole Roland Check In: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
--- OUTSIDE RECORDS SUMMARY | 2024-03-28 04:00 | XMS_ITS ---
Author Organization [facility] Address [address] [place] [address] Care Team Providers Care Director Automotive Name Role Phone Nikole Roland Primary Care Provider Pawel Palomares Unavailable [phone] NIKOLE ROLAND Unavailable Unavailable REASON FOR VISIT ankle Encounters Encounter Location Date Provider Diagnosis [facility] Office [address] [place] [id number] 03/28/2024 Nikole Roland Plan Of Treatment No Information Progress Notes * Danielle HOOKERDOB:1964 (59 yo F)Acc No.[id number]:03/28/2024 Progress Notes Patient: Dolores Olsonica Provider: Manfred Roland APRN :1965 A ge:58 Y S ex:Female Date:03/28/2024 Address:[address] [place] [address] [place], [id number] Subjective: * Chief Complaints: * A nkle Billing Information: * Procedure Codes: Care Plan Details* * Electronic signature of Jeevan Roland APN on 07/14/2025 at 10:41 PM CDT Sign off status: Pending * Provider: Manfred Roland APRN Date: 0 03/28/2024 Generated for Printi ng/Faxing/eTransmitting on: 0 07/14/2025 10:41 PM CDT
--- OUTSIDE RECORDS SUMMARY | 2024-07-04 04:30 | XMS_ITS ---
Author Organization [facility] Address [address] [place] [address] Care Team Providers Care Thread Grinder Name Role Phone Nikole Roland Primary Care Provider [phone] Pawel Palomares [phone] NIKOLE ROLAND Unavailable Unavailable REASON FOR VISIT cx per pt req d/t she has no transportation Encounters Encounter Location Date Provider Diagnosis [facility] [address] [place] [address], [place] [address] 07/04/2024 Pawel Palomares Plan Of Treatment No Information Progress Notes * Danielle HOOKERDOB:1964 (59 yo F)Acc No.[id number]:07/04/2024 Patient: Danielle Olson Provider: Jenn Palomares MD :1965 A ge:58 Y S ex:Female Date:07/04/2024 Address:[address] [place] [phone] Pcp:Nikole Roland Subjective: * Chief Complaints: * C x per pt req d/t she has no transportation Billing Information: * Procedure Codes: * Electronic signature of Catalina Palomares MD on 07/14/2025 at 10:41 PM CDT Sign off status: Pending * Provider: Jenn Palomares MD Date: 07/04/2024 Generated for Printi ng/Yaniv/eTransmitting on: 07/14/2025 10:41 PM CDT
--- OUTSIDE RECORDS SUMMARY | 2024-07-04 05:30 | XMS_ITS ---
Author Organization [facility] Address [address] [place] [address] Care Team Providers Care Life Skills Coordinator Name Role Phone Nikole Roland Primary Care Provider Pawel Palomares Unavailable [phone] NIKOLE ROLAND Unavailable Unavailable Tasia Whitley Unavailable [phone] REASON FOR VISIT 3m f/u w/echo w/tasia [...] Active Encounters Encounter Location Date Provider Diagnosis [facility] [address] [place] [address], [place] [address] 07/04/2024 Tasia Whitley Plan Of Treatment No [...] Notes * Danielle HOOKERDOB:1964 (59 yo F)Acc No.[id number]:07/04/2024 Progress Notes Patient: Danielle Olson Provider: Warren Whitley APN :1965 A ge:58 Y S ex:Female Date:07/04/2024 Address:[address] [place] [phone] Pcp:Nikole Roland Subjective: * Chief Complaints: * [...] Electronic signature of Kevin Whitley APN on 07/14/2025 at 10:42 PM CDT Sign off status: Pending * Provider: Warren Whitley APN Date: 07/04/2024 Generated for Dilcia mcgovern/Yaniv/Rafael on: 07/14/2025 10:42 PM CDT
[2024-12-09 13:52] VITALS: BP 154/88; BMI 29.1
[2025-07-14 22:37] VITALS: BP 169/100; PULSE 94; RESP 18; TEMP 36.6; O2SAT 100; BMI 27.8
--- OUTSIDE RECORDS SUMMARY | 2025-07-14 22:42 | XMS_ITS | Patient Health Record ---
Author Organization [facility] Address [address] [place] [address] Care Team Providers Care Mud Analysis Operator Name Role Phone Silverio Tejeda MD Primary Care Provider Baltazar Mendes Jr Unavailable ALLERGIES Allergen (clinical drug ingredient) Drug/Non Drug Allergy documented on EMR Reaction Allergy Type Onset Date Status amoxicillin Amoxicillin Unknown Drug Allergy Act sarah trazodone Trazodone HCl Unknown Drug Allergy Act sarah trihexyphenidyl Trihexyphenidyl HCl Unknown Drug Allergy Active Penicillin Unknown Drug Allergy Active REASON FOR [...] HCl 15 MG 1 tablet Orally Tw day 12/28/2016 Not-Taking Pantoprazole Sodium 40 MG [...] Problem Other chronic pain (G89.29) Active confirmed 64230676 Problem Degenerative disc disease, lumbar (M51.36) Active confirmed 34738122 Problem Arthritis of right knee (M17.11) Active confirmed [id number] Problem 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
--- OUTSIDE RECORDS SUMMARY | 2025-07-14 22:42 | XMS_ITS | Patient Health Record ---
Author Organization [facility] Address [address] [place] [address] Care Team Providers Care Police Pilot Name Role Phone Nikole Roland Primary Care Provider Pawel Palomares Unavailable [phone] NIKOLE ROLAND Unavailable Unavailable Catalina Whitley Unavailable [phone] Allergies Allergen (clinical drug ingredient) Drug/Non Drug Allergy documented on EMR Reaction Allergy Type Onset Date Status nitrofurantoin, macrocrystals / nitrofurantoin, monohydrate Macrobid Unknown Drug Allergy Active Penicillin Unknown Drug Allergy Active trazodone Trazodone Unknown Drug Allergy Active Reason For [...] Problem Status W/U Status Risk Notes Problem Sick sinus syndrome (03059531) Sick sinus syndrome (I49.5) Active confirmed Problem Mixed anxiety and depressive disorder (722047588) Depression with anxiety (F41.8) Active confirmed Problem Hypothyroid (42609044) Hypothyroid (E03.9) Active confirmed Problem Cardiac pacemaker in situ (250059134) Pacemaker (Z95.0) Active confirmed Problem Hypertension (03781563) Hypertension (I10) Active confirmed Problem Hyperlipidemia (16398518) Hyperlipidemia (E78.5) Active confirmed Encounters Encounter Location Date Provider Diagnosis [facility] [address] [place] [phone] 10/29/2024 Pawel Palomares Plan Of Treatment No Information Insurance Providers Payer Name Payer Address Payer Phone Subscriber Number Group Number Insured Name Patient Relationship to Insured Coverage Start Date Coverage End Date [facility] COMMUNITY PLAN [address] [place] [address] [id number] Danielle Martinez Self - patient is the insured Davidetter [address] [place] [phone] [id number] Danielle Collado Self - patient is the insured 4 Medical (General) History Medical History History ICD Code breast cancer, 2017 pacemaker, 2019 Surgical History Surgery Date(Month/Year) cholecystectomy appendectomy oophorectomy gastric sleeve Hospitalization History Reason Date(Month/Year) ER dizzy and headache 01/20
--- NOTE | 2025-07-15 00:16 | XRR_ITS ---
PROCEDURE INFORMATION: Exam: XR Left Humerus Exam date and time: 07/15/2025 1:06 AM Age: 59 years old Clinical indication: Pain; Upper arm; Left; Prior surgery; Surgery date: 6+ months; Surgery type: Pacemaker, bilateral mastectomies TECHNIQUE: Imaging protocol: Radiologic exam of the left humerus. Views: 2 or more views. COMPARISON: CR (CHEST, ) 07/15/2025 1:06 AM FINDINGS: Tubes, catheters and devices: Partially imaged implanted cardiac device. Bones/joints: Normal. Soft tissues: Normal. XR/[place] [id number] IMPRESSION: No acute findings.
--- NOTE | 2025-07-15 00:16 | XRR_ITS ---
PROCEDURE INFORMATION: Exam: XR Left Shoulder Exam date and time: 07/15/2025 1:06 AM Age: 59 years old Clinical indication: Pain; Upper arm; Left; Prior surgery; Surgery date: 6+ months; Surgery type: Pacemaker, bilateral mastectomies TECHNIQUE: Imaging protocol: Radiologic exam of the left shoulder. Views: 2 or more views. COMPARISON: CR (UP EXM, ) 07/15/2025 1:06 AM FINDINGS: Tubes, catheters and devices: Partially imaged left implanted cardiac device. Bones/joints: Normal. Heart/Mediastinum: Partially imaged cardiac valve prosthesis. Soft tissues: Normal. XR/XR shoulder LT min 2V* [id number] IMPRESSION: No acute findings.
--- NOTE | 2025-07-15 01:16 | W.ED.EXTPRO ---
HPI - Extremity Problem General: Chief complaint: Extremity Problem,Nontraumatic Stated complaint: l arm pain, fall Time Seen by Provider: 07/14/25 22:36 History of Present Illness: 59-year-old female who presents emergency room with left shoulder pain. This been going on for couple of months. She supposed to have an x-ray today but did not make the appointment because she overslept because her grandson kid did not sleep all night. Said the pain just got to be too much so she called an ambulance. No deformity. She has full range of motion but says she feels a popping motion. No known trauma. Related Data Home Medications ?Medication ?Instructions ?Recorded ?Confirmed meclizine 12.5 mg tablet 12.5 mg PO TID PRN 01/20/25 06/27/25 cyanocobalamin (vitamin B-12) 2,500 mcg PO DAILY 04/21/25 06/27/25 2,500 mcg tablet cholecalciferol (vitamin D3) 1,250 PO 06/27/25 06/27/25 mcg (50,000 unit) capsule Previous Rx's ?Medication ?Instructions ?Recorded mupirocin 2 % topical ointment 1 applic topical BID #15 grams 06/12/25 (Centany) bupropion HCl 75 mg tablet 75 mg PO BID #60 tabs 06/17/25 sertraline 25 mg tablet (Zoloft) 25 mg PO .HS #30 tabs 06/17/25 alendronate 70 mg tablet (Fosamax) 70 mg PO .WEEKLY #12 tabs 06/27/25 Allergies Allergy/AdvReac Type Severity Reaction Status Date / Time amoxicillin Allergy Unknown Verified 07/14/25 22:45 nitrofurantoin (From Allergy Unknown Verified 07/14/25 22:45 Macrobid) Penicillins Allergy Unknown Verified 07/14/25 22:45 trazodone Allergy ADR-Nightma Verified 07/14/25 22:45 re Review of Systems Narrative: Constitutional symptoms: Negative except as documented in HPI. Skin symptoms: Negative except as documented in HPI. Eye symptoms: Negative except as documented in HPI. ENMT symptoms: Negative except as documented in HPI. Respiratory symptoms: Negative except as documented in HPI. Cardiovascular symptoms: Negative except as documented in HPI. Gastrointestinal symptoms: Negative except as documented in HPI. Genitourinary symptoms: Negative except as documented in HPI. Musculoskeletal symptoms: Negative except as documented in HPI. Neurologic symptoms: Negative except as documented in HPI. Psychiatric symptoms: Negative except as documented in HPI. Endocrine symptoms: Negative except as documented in HPI. PFSH ED PFSH: Medical History (Updated 07/15/25 @ 01:36 by Deonna Rodrigues MD) Psychiatric care B12 deficiency Type 2 diabetes mellitus Chronic diarrhea Allergic rhinitis delivery delivered Bradycardia Nausea vomiting and diarrhea Vitamin D deficiency Anxiety and depression Hyperlipidemia Hypertension History of breast cancer Pacemaker Surgical History (Updated 06/27/25 @ 09:46 by LILLY Chang) Hx of colonoscopy with polypectomy unknown when last done History of esophagogastroduodenoscopy (EGD) unknown when last done History of colonoscopy 09/2024 at [facility]-recheck 09/2034 History of cholecystectomy H/O bilateral mastectomy History of appendectomy Gastric bypass status for obesity History of partial hysterectomy Family History Mother COPD with asthma Postsurgical cardiac pacemaker in situ Hypertension Hyperlipidemia Lung disease Colitis Anxiety and depression Brother Anxiety and depression Diabetes Psychiatric illness schizophrenia Father Liver cirrhosis Cancer Social History Smoking and tobacco/nicotine status: never used tobacco/nicotine Second hand smoke exposure: No Alcohol intake: never Substance/Drug Use: never Adopted: No Caregiver/support person: No Lives independently: Yes Household members: family, children and other Details: landlord that is the father to one of her grandchildren Housing: House Marital status: / Number of children: 2 Number of grandchildren: 4 Highest education level completed: High School Graduate service: No Current occupational status: disabled Pets and animals: Yes Pets & animals: cat(s) and dog(s) Leisure activites: games and other Leisure activities details: watch movies and you tube Sexually active: No Do you think of yourself as: Straight/Heterosexual Current gender identity: Female Shelly/Sikh: Tenriism Special shelly needs: No Agree to transfusion: Yes Female Reproductive History: Para: 2 Spontaneous abortions: No Physical Exam Narrative: EXAM NARRATIVE: General: Alert, no acute distress. Skin: warm and dry Head: Normocephalic Neck: Trachea midline Eye: Extraocular movements are intact. Ears, nose, mouth and throat: Oral mucosa moist Respiratory: Respirations are non-labored Musculoskeletal: No obvious deformity. Some limitation in range of motion secondary to pain. Gastrointestinal: Abdomen does not appear distended Neurological: Alert and oriented, No focal neurological deficit observed. Psychiatric: Cooperative, appropriate mood & affect. Course Vital Signs: Vital signs: Vital Signs Temperature 97.9 F 07/14/25 22:37 Pulse Rate 76 07/15/25 01:17 Respiratory Rate 18 07/14/25 22:37 Blood Pressure 169/107 07/15/25 01:17 Pulse Oximetry 96 07/15/25 01:17 Oxygen Delivery Me thod Room Air 07/14/25 22:37 MDM - Extremity (Nontraumatic) Medical Decision Making Medical decision making: Differential diagnosis including but not limited to and based on the above HPI, review of systems and physical exam: In this patient with a musculoskeletal extremity pain and x-ray is being ordered to rule out fractures and dislocations. Orders placed to evaluate differential diagnosis based on the above differential, HPI and physical exam I reviewed the patient's medical record. Reexamination: Patient remained stable. No increased work of breathing. No altered mental status. No focal motor deficits. X-ray of the right shoulder: No obvious acute fractures or dislocations. Films were interpreted by myself the emergency room provider and pending final radiology review. Assessment and plan: Shoulder pain/likely rotator cuff injury ?P.o. Alex in the emergency room - Discharged home - Discussed plan with patient. Answered any questions. - Evaluation and treatment of this problem were appropriate in the emergency setting. XR interpretation done by ED provider, pending radiology final review Discharge Plan Discharge Patient Disposition: Home Clinical Impression: Left shoulder pain Condition: Stable Prescriptions: No Action bupropion HCl 75 mg tablet 75 mg PO BID Qty: 60 2RF sertraline [Zoloft] 25 mg tablet 25 mg PO .HS Qty: 30 2RF meclizine 12.5 mg tablet 12.5 mg PO TID PRN cyanocobalamin (vitamin B-12) 2,500 mcg tablet 2,500 mcg PO DAILY mupirocin [Centany] 2 % ointment 1 applic topical BID Qty: 15 0RF cholecalciferol (vitamin D3) 1,250 mcg (50,000 unit) capsule PO alendronate [Fosamax] 70 mg tablet 70 mg PO .WEEKLY Qty: 12 3RF Rx Instructions: Monday Discharge Orders: Discharge ED (Routine); Ordered 07/15/25 Ordered By: Deonna Rodrigues Referrals: Baltazar Desai MD [Physician, Orthopedics] Referral Note: Please call for an appoint with Dr. Desai, your PCP or the orthopedic doc of your choosing Ana M Putnam FNP [Primary Care Provider, [facility]] Discharge Diet: Usual diet Discharge Activity: Increase activity as tolerated Patient Instructions: Opioid Safety, Pain Management, Patient Portal & Angel Instructions Activity Restrictions/Additional Instructions: Thank you for choosing [facility] for your healthcare needs today. You have been screened and evaluated and felt safe for discharge. Health conditions do change or evolve sometimes and as such it is important that you follow up with your Primary Doctor to be re checked, 3-5 days is a general good time frame for follow up. You are always welcome to return to the ED for re assessment if your symptoms are worsening or you have new concerns Print Language: Canadian Coding Level of Care Code ED Digital Field Service Technician for Cristian Stovall
[2025-07-15 01:17] VITALS: BP 169/107; PULSE 76; O2SAT 96
[2025-07-15] MEDS: HYDROcodone-acetaminophen 10-325 mg Tablet 1 TAB PO (01:42)
[2025-07-15 01:43] VITALS: BP 164/102; PULSE 63; O2SAT 100
== END 2025-07-15 01:45 | disposition home or self-care (01) ==
PROVIDERS: Emergency Provider Emergency Medicine; PCP Nurse Practitioner Family
DX: M25.512 Pain in left shoulder (principal); Z95.0 Presence of cardiac pacemaker; E78.5 Hyperlipidemia, unspecified; I10 Essential (primary) hypertension; E11.9 Type 2 diabetes mellitus without complications; Z85.3 Personal history of malignant neoplasm of breast
CPT/HCPCS: 73030; 73060; 99283; J9999

== ENCOUNTER → 2025-07-23 10:53 | Outpatient (BNVA) | payer OTHER, MEDICAID, SELFPAY ==
[2025-07-18 13:18] VITALS: BP 132/80; BMI 27.0
== END ==
PROVIDERS: Family Provider Nurse Practitioner Family; PCP Nurse Practitioner Family; Visit Provider Specialist
DX: M25.562 Pain in left knee (principal)
CPT/HCPCS: 73560; 73565

== ENCOUNTER → 2025-08-13 08:55 | Outpatient (BNVA) | payer OTHER, MEDICAID, SELFPAY ==
[2025-07-18 13:18] VITALS: BP 132/80; BMI 27.0
== END ==
PROVIDERS: Family Provider Nurse Practitioner Family; PCP Nurse Practitioner Family; Visit Provider Specialist
DX: M25.812 Other specified joint disorders, left shoulder (principal)
CPT/HCPCS: 73030

== ENCOUNTER → 2025-10-01 09:26 | Outpatient (BNVA) | payer OTHER, MEDICAID, SELFPAY ==
[2025-07-18 13:18] VITALS: BP 132/80; BMI 27.0
== END ==
PROVIDERS: Family Provider Nurse Practitioner Family; PCP Nurse Practitioner Family; Visit Provider Specialist
DX: M17.12 Unilateral primary osteoarthritis, left knee (principal)
CPT/HCPCS: 73560; 73565

== ENCOUNTER 2025-10-20 15:06 | Outpatient (CLI) | payer OTHER, MEDICARE, SELFPAY ==
[2025-07-18 13:18] VITALS: BP 132/80; BMI 27.0
[2025-10-20 15:30] LABS: Hematocrit 38.9 % (36-47); Hemoglobin 13.50 g/dL (11.27-16.99); Mean Corpuscular HGB Conc 34.7 g/dL (30-55); Mean Corpuscular Hemoglobin 31.3 pg (27-33); Mean Corpuscular Volume 90.3 fl (85-98); Nucleated Red Blood Cells % 0 %; Platelet Count 189 10^3/cmm (157-399); Red Blood Count 4.31 10^6/uL (3.85-5.65); White Blood Count 5.91 10^3/uL (3.29-11.43)
[2025-10-20 15:31] LABS: Glucose Urine UA Negative (Normal); Nitrate Urine Negative (Negative); Specific Gravity, Urine 1.011 (1.005-1.030)
[2025-10-20 15:33] LABS: Add Urine Microscopic? YES; Universal Test for UA Present (0)
[2025-10-20 15:52] LABS: Alanine Aminotransferase 8 U/L (0-33); Albumin Level 4.8 g/dL (3.5-5.2); Alkaline Phosphatase 69 U/L (35-105); Anion Gap 14.8 (5-19); Aspartate Amino Transferase 13 U/L (0-32); Blood Urea Nitrogen 9 mg/dL (6-20); Calcium 9.6 mg/dL (8.5-10.5); Carbon Dioxide 27 mmol/L (22-29); Chloride 102 mmol/L (98-107); Globulin 2.7 g/dL (1.3-4.6); Glucose 92 mg/dL (65-115); Osmolality Calculated 288 mOsm/kg (285-295); Potassium 3.8 mmol/L (3.5-5.1); Sodium 140 mmol/L (136-145); Total Protein 7.5 g/dL (6.6-8.7)
== END 2025-10-20 15:07 | disposition home or self-care (01) ==
LOC: LAB 15:08
PROVIDERS: PCP Nurse Practitioner Family; Visit Provider Specialist
DX: Z01.818 Encounter for other preprocedural examination (principal)
CPT/HCPCS: 80053; 81001; 85025; 87086

== ENCOUNTER 2025-10-21 13:01 | Outpatient (CLI) | payer OTHER, MEDICARE, MEDICAID, SELFPAY ==
[2025-07-18 13:18] VITALS: BP 132/80; BMI 27.0
--- NOTE | 2025-10-21 13:30 | CT_ITS ---
WS: [id number] CT LEFT knee, noncontrast HISTORY: per [facility] protocol TECHNIQUE: Protocol for [facility] total knee replacement has been obtained. This includes axial imaging through the LEFT hip, LEFT knee and LEFT ankle. DLP: 980.65 mGy.cm COMPARISON: Radiograph 10/01/2025 LEFT hip: Good preservation of the joint space. No destructive bone lesions. No fractures. Normal soft tissues. LEFT knee: Moderate lateral subluxation of the patella. Severe patellofemoral joint space narrowing. There is bone upon bone at the patellofemoral junction. Small suprapatellar joint effusion. No fractures. LEFT ankle: Unremarkable. CT/CT knee LT [facility] [id number] IMPRESSION: CT imaging provided for [facility] robotic total knee replacement.
== END 2025-10-21 13:02 | disposition home or self-care (01) ==
PROVIDERS: PCP Nurse Practitioner Family; Visit Provider Specialist
DX: M17.12 Unilateral primary osteoarthritis, left knee (principal); M25.462 Effusion, left knee; M25.562 Pain in left knee; M22.2X2 Patellofemoral disorders, left knee
CPT/HCPCS: 73700